=== PATIENT | female | born 1985 | race Caucasian/White ===

== ENCOUNTER 2023-05-13 11:10 | Emergency (ER) | payer MEDICARE, MEDICAID, SELFPAY ==
[2023-05-13] VITALS (7 sets, daily range): BP systolic 96–104; BP diastolic 69–71; PULSE 64–80; RESP 16–20; TEMP 36.7; O2SAT 98–100; BMI 23.3
--- NOTE | 2023-05-13 12:18 | CRLHL7_ITS ---
For Patients: As a result of the Century Cures Act, medical imaging exams and procedure reports are released immediately into your electronic medical record. You may view this report before your referring provider. If you have questions, please contact your health care provider. INDICATION: COUGH TECHNIQUE: Chest 2 views. COMPARISON: June 22, 2013 FINDINGS: Cardiovascular and mediastinum: Heart size and vasculature are normal in caliber and appearance. Lungs and pleural spaces: Lungs are clear. No sign of infiltrate. No sign of pleural effusion. No pneumothorax. Bones and soft tissues: No significant findings. Spinal leads including visualized. IMPRESSION: No evidence of acute cardiopulmonary process. Dictated by Filemon Smart MD @ 05/13/2023 1:48:38 PM (Electronically Signed)
--- NOTE | 2023-05-13 12:21 | ED.GENADULT ---
HPI - General Adult General Chief complaint: Cough Stated complaint: low bp, cough Time Seen by Provider: 05/13/23 11:32 History of Present Illness HPI narrative: This 37-year-old female comes in reporting upper respiratory symptoms for the past week or more. She had a sore throat initially but this has resolved. She has persistent coughing and generalized malaise. She does not report any fevers. She has been using [id number] medicines without much relief. Related Data Home Medications Medication Instructions Recorded Confirmed albuterol sulfate 90 mcg/actuation 2 inh inhalation PRN 03/20/22 02/05/23 aerosol inhaler cyclobenzaprine 10 mg tablet 10 mg PO ONCE PRN 03/20/22 05/13/23 lorazepam 1 mg tablet 0.5 - 1 mg PO QDAY PRN 03/20/22 05/13/23 trazodone 50 mg tablet 100 mg PO .Bedtime 03/20/22 05/13/23 Previous Rx's Medication Instructions Recorded aripiprazole 2 mg tablet (Abilify) 2.5 mg (1.25 x 2 mg) PO QDAY 01/22/23 Anxiety #90 tabs escitalopram oxalate 20 mg tablet 20 mg PO DAILY Anxiety #90 tabs 01/22/23 tramadol 50 mg tablet 50 mg PO TID PRN pain #90 tabs 04/09/23 dextroamphetamine sulfate 10 mg 10 mg PO BID ADHD #60 tabs 04/22/23 tablet acetaminophen 300 mg-codeine 30 mg 1 tab PO Q6H PRN pain #15 tabs 05/13/23 tablet methylprednisolone 4 mg tablets in See Rx Instructions PO .COMPLEX 05/13/23 a dose pack (Medrol (Chepe)) #21 ea Allergies Allergy/AdvReac Type Severity Reaction Status Date / Time Penicillins Allergy Mild Hives/rash Verified 02/05/23 14:16 Review of Systems Status of ROS: Reports: 10 or more systems reviewed and unremarkable except as noted in History and below Narrative: Constitutional: No fevers, no weight gain or loss. Eyes: No discharge. No vision changes. HENT: No sore throat, no ear pain. Nasal congestion. Cardiovascular: No chest pain, no palpitations. Respiratory: No shortness of breath, no wheezes. Frequent nonproductive cough. Gastrointestinal: No abdominal pain, no vomiting, no diarrhea. Genitourinary: No dysuria, no hematuria. Musculoskeletal: Normal range of motion. Skin: No rashes, no pruritis. Neurological: No dizziness, weakness, sensory change, speech change. Endo/Heme/Allergies: No bruising or bleeding. No polydipsia. Pysch: no suicidality, no anxiety, no insomnia. All other systems reviewed and are negative. [facility] Medical History (Updated 05/13/23 @ 12:58 by Michele Ruiz MD) Dysuria ?R30.0 - Dysuria (ICD-10) Suicidal ideation ?R45.851 - Suicidal ideations (ICD-10) History of seizure disorder ?Z86.69 - Personal history of other diseases of the nervous system and sense organs (ICD-10) History of migraine ?Z86.69 - Personal history of other diseases of the nervous system and sense organs (ICD-10) Depression with suicidal ideation ?F32.A - Depression, unspecified (ICD-10) ?R45.851 - Suicidal ideations (ICD-10) Surgical History (Updated 03/05/22 @ 12:42 by Dioni Dior) Status post surgical removal of both fallopian tubes (2014) ?Z90.79 - Acquired absence of other genital organ(s) (ICD-10) Status post laparoscopic hysterectomy (2014) ?Z90.710 - Acquired absence of both cervix and uterus (ICD-10) History of section (03/01/10) ?Z98.891 - History of uterine scar from previous surgery (ICD-10) Family History (Updated 03/05/22 @ 12:43 by Dioni Dior) Other Ankylosing spondylitis Social History (Updated 03/05/22 @ 12:44 by Dioni Dior) Narrative: Nicotine dependence Does not have regular exercise regimen Medical cannabis use Single, unemployed, 1 child Social drinker, 2 drinks/week Smoking Status: Current every day smoker What tobacco products do you use: cigarettes Smoking packs per day: 0.75 Smoking cigarettes per day: 15.0 Do you use any of these nicotine containing products: None Second hand tobacco smoke exposure: No How often do you have a drink containing alcohol: monthly or less AUDIT-C Alcohol total score: 1 Non-prescribed substance use: marijuana (any form) Little interest or pleasure in doing things: several days Feeling down, depressed, or hopeless: more than half the days service: No Exam Narrative: Exam Narrative: Constitutional: Well-developed, well-nourished, no acute distress. HEENT: Normocephalic, atraumatic. Neck: Normal range of motion. Nontender. Supple. Heart: Regular. No murmurs. Normal rate. Intact distal pulses. Lungs: Clear to auscultation. No chest discomfort. No wheezes, rhonchi, or rales. Abdomen: Normal bowel sounds. Nontender. No rebound tenderness. Genitalia: Deferred. Back: No midline tenderness. Normal range of motion. Extremities: Normal range of motion. No injury. Skin: Intact. No rash. Warm. No erythema or pallor. Neurologic: No altered sensation. No weakness. Alert and oriented. Psychiatric: No suicidality. No anxiety or depression. No insomnia. Nursing notes and vitals signs are reviewed. Const: Vital Signs, click to edit/add: Vital Signs - 24 hr 05/13/23 11:21 05/13/23 12:06 05/13/23 12:07 Temperature 98.0 F Pulse Rate 79 74 Pulse Rate [Pulse Oximeter] 80 Respiratory Rate 20 16 Blood Pressure 96/69 Blood Pressure [Ri ght Upper Arm] 102/70 Pulse Oximetry 99 100 98 Oxygen Delivery Me thod Room Air 05/13/23 12:15 05/13/23 12:34 05/13/23 12:35 Temperature Pulse Rate 76 69 69 Pulse Rate [Pulse Oximeter] Respiratory Rate 16 Blood Pressure 104/71 Blood Pressure [Ri ght Upper Arm] Pulse Oximetry 99 100 99 Oxygen Delivery Me thod 05/13/23 12:45 Temperature Pulse Rate 64 Pulse Rate [Pulse Oximeter] Respiratory Rate Blood Pressure Blood Pressure [Ri ght Upper Arm] Pulse Oximetry 100 Oxygen Delivery Me thod Course Vital Signs Vital signs: Initial Vital Signs Temperature 98.0 F 05/13/23 11:21 Temperature Source Temporal Artery Scan 05/13/23 11:21 Pulse Rate 80 05/13/23 11:21 Pulse Rhythm Regular 05/13/23 11:21 Respiratory Rate 20 05/13/23 11:21 Blood Pressure 102/70 05/13/23 11:21 Blood Pressure Mean 80 05/13/23 11:21 Blood Pressure Position Sitting 05/13/23 11:21 Pulse Oximetry 99 10/10/23 11:21 Oxygen Delivery Method Room Air 05/13/23 11:21 Vital Signs Temperature 98.0 F 05/13/23 11:21 Pulse Rate 80 05/13/23 11:21 Respiratory Rate 20 05/13/23 11:21 Blood Pressure 102/70 05/13/23 11:21 Pulse Oximetry 99 05/13/23 11:21 Oxygen Delivery Method Room Air 05/13/23 11:21 Temperature 98.0 F 05/13/23 11:21 Pulse Rate 64 05/13/23 12:45 Respiratory Rate 16 05/13/23 12:34 Blood Pressure 104/71 05/13/23 12:34 Pulse Oximetry 100 05/13/23 12:45 Oxygen Delivery Method Room Air 05/13/23 11:21 Medical Decision Making MDM Narrative Medical decision making narrative: This patient comes in with symptoms of upper respiratory infection as described above. Chest x-ray by my review with radiology report pending shows no evidence of acute pulmonary disease. Nasal swab is negative for COVID, influenza, and RSV. This patient's symptoms are likely due to a viral upper respiratory infection. She has normal vital signs. She did receive a prescription for Medrol Dosepak and some tablets of Tylenol 3. Lab Data Labs: Lab Results 05/13/23 Range/Units 11:33 SARS-CoV-2 (PCR) Negative SARS-CoV-2 (Negative) Influenza Type A (PCR) Negative PCR FLU A (Negative) Influenza Type B (PCR) Negative PCR FLU B (Negative) RSV (PCR) Negative PCR RSV (Negative) Discharge Plan Discharge Clinical Impression: Acute upper respiratory infection Patient Disposition: Home, Self-Care Condition: Unchanged Additional Instructions: Take medication as needed and indicated. Follow up with MD or return if worsening symptoms happen. Prescriptions: New acetaminophen-codeine 300-30 mg tablet 1 tab PO Q6H PRN (Reason: pain) Qty: 15 0RF methylprednisolone [Medrol (Chepe)] 4 mg tablets,dose pack See Rx Instructions .ROUTE .COMPLEX Qty: 21 0RF Rx Instructions: orally per package directions No Action trazodone 50 mg tablet 100 mg PO .Bedtime albuterol sulfate 90 mcg/actuation HFA aerosol inhaler 2 inh inhalation PRN cyclobenzaprine 10 mg tablet 10 mg PO ONCE PRN lorazepam 1 mg tablet 0.5 - 1 mg PO QDAY PRN Rx Instructions: Take for severe anxiety. Do not take with hydrocodone. aripiprazole [Abilify] 2 mg tablet 2.5 mg PO QDAY Qty: 90 3RF escitalopram oxalate 20 mg tablet 20 mg PO DAILY Qty: 90 3RF tramadol 50 mg tablet 50 mg PO TID PRN (Reason: pain) Qty: 90 2RF dextroamphetamine sulfate 10 mg tablet 10 mg PO BID Qty: 60 0RF Rx Instructions: administer doses at least 4-6 hours apart Follow Up/Referrals: Alvaro Clements MD [Primary Care Provider] - Stand Alone Forms: [employer] Info Instructions
[2023-05-13 12:37] LABS: PCR FLU A Negative PCR FLU A (Negative); PCR FLU B Negative PCR FLU B (Negative); PCR RSV Negative PCR RSV (Negative)
[2023-05-13 12:45] LABS: SARS PCR* Negative SARS-CoV-2 (Negative)
== END 2023-05-13 13:10 | disposition home or self-care (01) ==
PROVIDERS: Emergency Provider Emergency Medicine Emergency Medical Services; PCP Family Medicine
DX: J06.9 Acute upper respiratory infection, unspecified (principal)
CPT/HCPCS: 71046; 87631; 99284

== ENCOUNTER 2023-07-22 10:17 | Outpatient (CLI) | payer MEDICARE, MEDICAID, SELFPAY ==
--- OUTSIDE RECORDS SUMMARY | 2023-07-22 10:22 | XMS_ITS | Continuity of Care Document ---
Author Name Unknown Organization [facility] Address [address] [facility] [place] [address] Phone Care Team Providers Care Director Of Strategic Marketing Name Role Phone Lisandro YUE [place] Unavailable Unavailable Allergies, Adverse Reactions, Alerts Substance Reaction Status Criticality PENICILLIN Hives/Skin Rash Active No Informati on Medications Medication Instructions Dosage Effective Dates (start - stop) Status Comments Medrol (Chepe) 4 mg tablets in a dose pack take by oral route as directed per package instructions 0.00 - Active cyclobenzaprine 10 mg tablet Take 10 mg by mouth every 8 hours as needed. - Active Fioricet 50 mg-300 mg-40 mg capsule take 1 - 2 capsule by oral route every 4 hours as needed not to exceed 6 capsules per 24hrs 1.00-2.00 capsule - Active Adderall 5 mg tablet take 1 tablet by oral route 2 times every day before breakfast and at noon 5 MG - Active trazodone 50 mg tablet take 1 - 2 tablet by ORAL route every bedtime after meals 50 MG - Active Lexapro 20 mg tablet take 1 tablet by oral route every day 20 MG - Active methotrexate sodium 2.5 mg tablet take 4 tablet by oral route every week 10 MG - Active lorazepam 0.5 mg tablet take 1 tablet by oral route every day as needed as needed 0.5 MG - Active Humira 40 mg/0.8 mL subcutaneous syringe kit inject 0.8 milliliter by subcutaneous route every 2 weeks in the abdomen or thigh (rotate sites) 40 MG - Active lamotrigine 200 mg tablet take 1 tablet by oral route every 3 days 200 MG - Active ketorolac 15 mg/mL injection cartridge inject 2 milliliter by intramuscular route every 6 hours as needed for up to 5 days total use - Active hydroxyzine HCl 50 mg tablet take 1 tablet by oral route 2 times every day 50 MG - Active lidocaine 3 % topical cream - Active Proair Digihaler 90 mcg/actuation aerosol powder breath act, sensor inhale 2 puff by inhalation route every 4 - 6 hours as needed 180 MCG - Active medical cannabis ORAL - Active Lyrica 25 mg capsule take 1 capsule by ORAL route 2 times every day 25 MG - No Longer Active baclofen 5 mg tablet take 1 tablet by oral route 3 times every day as needed 5 MG - No Longer Active Procedures Procedure Date OFFICE/OUTPATIENT VISIT, EST OFFICE VISIT, EST TELEMEDICINE Foll-up eval q3mo opiod tx Drug Urine Toxology With Chromatography Drug test def 22+ classes Foll-up eval q3mo opiod tx OFFICE/OUTPATIENT VISIT, EST Foll-up eval q3mo opiod tx OFFICE VISIT, EST TELEMEDICINE 22 Foll-up eval q3mo opiod tx OFFICE/OUTPATIENT VISIT, EST Injection Sacroiliac Left Foll-up eval q3mo opiod tx OFFICE/OUTPATIENT VISIT, EST ROUTINE BLOOD DRAW Drug Urine Toxology With Chromatography Drug test def 22+ classes Foll-up eval q3mo opiod tx OFFICE/OUTPATIENT VISIT, EST Foll-up eval q3mo opiod tx OFFICE VISIT, EST TELEMEDICINE 21 Foll-up eval q3mo opiod tx OFFICE VISIT, EST TELEMEDICINE Foll-up eval q3mo opiod tx OFFICE VISIT, EST TELEMEDICINE Foll-up eval q3mo opiod tx OFFICE/OUTPATIENT VISIT, EST PT-FOCUSED HLTH RISK ASSMT Foll-up eval q3mo opiod tx OFFICE/OUTPATIENT VISIT, EST Foll-up eval q3mo opiod tx OFFICE/OUTPATIENT VISIT, EST ROUTINE BLOOD DRAW Foll-up eval q3mo opiod tx OFFICE/OUTPATIENT VISIT, EST X-RAY SPINE CERVICAL 3 VIEWS OR LESS Sep [facility] Post Op Satellite Foll-up eval q3mo opiod tx OFFICE VISIT, EST TELEMEDICINE [facility] Post Op Satellite No Charge For Visit Per Prov IMPLANT NEUROELECTRODES ASC IMPLANT NEUROELECTRODES ASC INSRT/REDO SPINE N GENERATOR Foll-up eval q3mo opiod tx OFFICE VISIT, EST TELEMEDICINE Foll-up eval q3mo opiod tx OFFICE VISIT, EST TELEMEDICINE Foll-up eval q3mo opiod tx OFFICE VISIT, EST TELEMEDICINE Foll-up eval q3mo opiod tx OFFICE/OUTPATIENT VISIT, EST [facility]CS Lead Pull Satellite No Charge For Visit Per Prov ORTHOTIC MGMT AND TRAINING Initial Encou nter No Charge For Visit Per Prov [facility] Mid Trial Satellite IMPLANT NEUROELECTRODES ASC IMPLANT NEUROELECTRODES ASC Implt neurostim elctr each FLUOROGUIDE FOR SPINE INJECTION May-- 020 Foll-up eval q3mo opiod tx OFFICE/OUTPATIENT VISIT, EST Foll-up eval q3mo opiod tx OFFICE/OUTPATIENT VISIT, EST PT EVAL MOD COMPLEX 30 MIN Foll-up eval q3mo opiod tx OFFICE/OUTPATIENT VISIT, EST Psych Dx Eval Foll-up eval q3mo opiod tx OFFICE/OUTPATIENT VISIT, EST SCS Trial Procedure Ordered Foll-up eval q3mo opiod tx OFFICE/OUTPATIENT VISIT, EST Drug test def 22+ classes Drug Urine Toxology With Chromatography Alcohol/drug screening OFFICE/OUTPATIENT VISIT, NEW Drug test def 22+ classes Advance Directives Directive Yes / No Effective Date File Name No Information Encounters Encounter Description Practice Location Reason(s) For Visit Diagnoses Date Provider Providers Copied on Encounter [facility], [address] [place] [address], [id number] , [place] tel: [phone] [facility] [place] No Information 2 Amandaadrianna [place]. [address], [place], [id number] , [place]. tel:[phone] OFFICE/OUTPAT IENT VISIT, [facility], [address] [place] [address], [id number] , [place] tel: [phone] [facility] low back pain (chief complaint) Nicotine dependenceDepre ssionChronic pain syndromePain in right hipPain in left hipSacroiliitis , not elsewhere classifiedSpond ylosis w/o myelopathy or radiculopathy, cervical regionRadiculop athy, lumbar regionLong term (current) use of opiate analgesic 2 Lisandro Osborne. [address], [place], [id number] , [place]. tel:[phone] Referring Provider: Lucas Buitrago, [address] [place], [address]. tel:[phone] OFFICE VISIT, EST TELEMEDICINE [facility], [address] [place] [address], [id number] , [place] tel:[phone] [facility] [place] low back pain (chief complaint) Nicotine dependenceDepre ssionChronic pain syndromePain in right hipPain in left hipSacroiliitis , not elsewhere classifiedSpond ylosis w/o myelopathy or radiculopathy, cervical regionRadiculop athy, lumbar regionLong term (current) use of opiate analgesic Oct-3 0- 2 Lisandro Osborne. [address], [place], [place], [id number] , [place]. tel:[phone] Referring Provider: Lucas Buitrago, [address] [place] [address], [address]. [phone] [facility], [address] [place] [address], [id number] , [place] tel: [phone] [facility] [place] No Information Oct-0 2 Marilyn Parker. [address] [place] [address], [id number] , [place]. tel:[phone] OFFICE/OUTPAT IENT VISIT, [facility], [address] [place] [address], [id number] , [place] tel:[phone] [facility] Back Pain (chief complaint) Ankylosing spondylitis in spineChronic pain syndromePain in left hipLong term (current) use of opiate analgesicSpondy losis w/o myelopathy or radiculopathy, cervical regionDepressio nRadiculopathy, lumbar regionNicotine dependenceSacro iliitis, not elsewhere classifiedPain in right hipEncounter for therapeutic drug level monitoring Oct-0 2 Marilyn Parker. [address] [place] [address], [id number] , [place]. tel:[phone] Referring Provider: Lucas Buitrago, [address] [place] [address], [address]. [phone] OFFICE VISIT, EST TELEMEDICINE [facility], [address] [place] [address], [id number] , [place] tel: [phone] [facility] Back Pain (chief complaint) Sacroiliitis, not elsewhere classifiedPain in right hipChronic pain syndromePain in left hipAnkylosing spondylitis in spineLong term (current) use of opiate analgesicDepres sionSpondylosis w/o myelopathy or radiculopathy, cervical regionRadiculop athy, lumbar regionNicotine dependence 2 Lisandro Osborne. [address] [facility] [address], [place], [place], [id number] , [place]. tel: [phone] Referring Provider: Alvaro Clements, [address], [address]. tel:[phone] OFFICE/OUTPAT IENT VISIT, [facility], [address] [place] [address], [id number] , [place] tel: [phone] [facility] Back Pain (chief complaint) Sacroiliitis, not elsewhere classifiedPain in right hipChronic pain syndromePain in left hipAnkylosing spondylitis in spineLong term (current) use of opiate analgesicDepres sionSpondylosis w/o myelopathy or radiculopathy, cervical regionRadiculop athy, lumbar regionNicotine dependence 1 Lisandro Osborne. [address] [facility] [address], [place], [place], [id number] , [place]. tel: [phone] Referring Provider: Lucas Buitrago, [address] [place] [address], [address]. tel:[phone] [facility], [address] [place] [address], [id number] , [place] tel: [phone] [facility] Sacroiliitis, not elsewhere classified 1 Crow Kiran. [facility], [address] [facility] [address], [place], [address], [place]. tel: [phone] Referring Provider: Lucas Buitrago, [address] [place] [address], [address]. tel:[phone] OFFICE/OUTPAT IENT VISIT, EST [facility], [address] [place] [address], [id number] , [place] tel: [phone] [facility] Back Pain (chief complaint) Pain in right hipChronic pain syndromePain in left hipAnkylosing spondylitis in spineLong term (current) use of opiate analgesicDepres sionNicotine dependenceSpond ylosis w/o myelopathy or radiculopathy, cervical regionSacroilii tis, not elsewhere classified 1 Nyongesa [place]. [address] [facility] [address], [place], [place], [id number] , [place]. tel: [phone] Referring Provider: Lucas Buitrago, [address] [place] [address], [address]. tel:[phone] [facility], [address] [place] [address], [id number] , [place] tel: [phone] [facility] Back Pain (chief complaint) Pain in right hipChronic pain syndromePain in left hipAnkylosing spondylitis in spineLong term (current) use of opiate analgesicDepres sionNicotine dependenceSpond ylosis w/o myelopathy or radiculopathy, cervical region 1 Nyongesa [place]. [address] [facility] [address], [place], [place], [id number] , [place]. tel: [phone] Referring Provider: Lucas Buitrago, [address] [place] [address], [address]. tel: [phone] [facility], [address] [place] [address], [id number] , [place] tel: [phone] [facility] No Information 1 Nyongesa [place]. [address] [facility] [address], [place], [place], [id number] , [place]. tel: [phone] OFFICE/OUTPAT IENT VISIT, EST [facility], [address] [place] [address], [id number] , [place] tel: [phone] [facility] Back Pain (chief complaint) Ankylosing spondylitis in spineLong term (current) use of opiate analgesicDepres sionNicotine dependenceSpond ylosis w/o myelopathy or radiculopathy, cervical regionEncounter for therapeutic drug level monitoringPain in right hipChronic pain syndromePain in left hip 8-202 1 Nyongesa [place]. [address], [place], [id number] , [place]. [phone] Referring Provider: Lucas Buitrago, [address] [place] [address], [address]. [phone] OFFICE VISIT, EST TELEMEDICINE [facility], [address] [place] [address], [id number] , [place] [phone] [facility] Back Pain (chief complaint) Ankylosing spondylitis in spineLong term (current) use of opiate analgesicDepres sionNicotine dependencePain in right hipSpondylosis w/o myelopathy or radiculopathy, cervical regionChronic pain syndromePain in left hip Sep-3 0-202 1 Nyongesa [place]. [address] [facility] [address] [facility] [address], [place], [id number] , [place]. [phone] Referring Provider: Lucas Buitrago, [address] [place] [address], [address]. [phone] OFFICE VISIT, EST TELEMEDICINE [facility], [address] [place] [address], [id number] , [place] tel:[phone] [facility] Back Pain (chief complaint) Ankylosing spondylitis in spineLong term (current) use of opiate analgesicDepres sionNicotine dependencePain in right hipSpondylosis w/o myelopathy or radiculopathy, cervical regionChronic pain syndrome Sep-0 2-202 1 Nyongesa [place]. [address], [place], [id number] , [place]. [phone] Referring Provider: Lucas Buitrago, [address] [place] [address], [address]. [phone] OFFICE VISIT, EST TELEMEDICINE [facility], [address] [place] [address], [id number] , [place] [phone] [facility] Back Pain (chief complaint) Ankylosing spondylitis in spineLong term (current) use of opiate analgesicDepres sionNicotine dependencePain in right hipSpondylosis w/o myelopathy or radiculopathy, cervical regionChronic pain syndrome 1 Lisandro Osborne. [address] [facility] [address], [place], [place], [id number] , [place]. [phone] Referring Provider: Lucas Buitrago, [address] [place] [address], [address]. [phone] OFFICE/OUTPAT IENT VISIT, [facility], [address] [place] [address], [id number] , [place] [phone] [facility] Back Pain (chief complaint) Ankylosing spondylitis in spineLong term (current) use of opiate analgesicDepres sionNicotine dependencePain in right hipSpondylosis w/o myelopathy or radiculopathy, cervical regionChronic pain syndromeEncount er for screening for other disorder 1 Lisandro Osborne. [address] [facility] [address], [place], [place], [id number] , [place]. [phone] Referring Provider: Lucas Buitrago, [address] [place] [address], [address]. [phone] OFFICE/OUTPAT IENT VISIT, [facility], [address] [place] [address], [id number] , [place] [phone] [facility] Back Pain (chief complaint) Ankylosing spondylitis in spineLong term (current) use of opiate analgesicDepres sionNicotine dependencePain in right hipSpondylosis w/o myelopathy or radiculopathy, cervical regionChronic pain syndrome 1 Lisandro Osborne. [address] [address], [place], [place], [id number] , [place]. [phone] Referring Provider: Lucas Buitrago, [address] [place] [address], [address]. tel:[phone] OFFICE/OUTPAT IENT VISIT, EST [facility], [address] [place] [address], [id number] , [place] tel:[phone] [facility] Back Pain (chief complaint) Ankylosing spondylitis in spineLong term (current) use of opiate analgesicDepres sionNicotine dependencePain in right hipSpondylosis w/o myelopathy or radiculopathy, cervical regionChronic pain syndrome Nov-2 1 Sid [place]. [address] [address], [place], [place], [id number] , [place]. tel:[phone] Referring Provider: Lucas Buitrago, [address] [place] [address], [address]. [phone] [facility], [address] [place] [address], [id number] , [place] tel:[phone] [facility] Ankylosing spondylitis in spine 1 Sid [place]. [address] [address], [place], [place], [id number] , [place]. [phone] Referring Provider: Lucas Buitrago, [address] [place] [address], [address]. [phone] [facility], [address] [place] [address], [id number] , [place] [phone] [facility] Encounter for therapeutic drug level monitoringLong term (current) use of opiate analgesic Oct- 1 Nyongesa [place]. [address] [address], [place], [place], [id number] , [place]. [phone] OFFICE/OUTPAT IENT VISIT, EST [facility], [address] [place] [address], [id number] , [place] tel: [phone] [facility] [place] Back Pain (chief complaint) skilled nursing (current) use of opiate analgesicAnkylo sing spondylitis in spineDepression Nicotine dependencePain in right hipSpondylosis w/o myelopathy or radiculopathy, cervical regionChronic pain syndromeEncount er for therapeutic drug level monitoring 1 Sid [place]. [address] [facility] [address] [facility] [address], [place], [id number] , [place]. tel: [phone] Referring Provider: Lucas Buitrago, [address] [place] [address], [address]. tel:[phone] [facility], [address] [place] [address], [id number] , [place] tel: [phone] [facility] [place] No Information 1 Maria Magno. [facility], [address] [facility] [address], [place], [address], [place]. tel: [phone] Referring Provider: Lucas Buitrago, [address] [place] [address], [address]. tel:[phone] OFFICE VISIT, EST TELEMEDICINE [facility], [address] [place] [address], [id number] , [place] tel: [phone] [facility] Back Pain (chief complaint) Ankylosing spondylitis in spineDepression Nicotine dependencePain in right hipSpondylosis w/o myelopathy or radiculopathy, cervical regionLong term (current) use of opiate analgesicChroni c pain syndrome b-0 1 Lisandro Osborne. [address] [facility] [address] [facility] [address], [place], [id number] , [place]. tel: [phone] [facility], [address] [place] [address], [id number] , [place] tel: [phone] [facility] [place] Spondylosis w/o myelopathy or radiculopathy, cervical region Sep-0 1 Lisandro Osborne. [address] [facility] [address] [facility] [address], [place], [id number] , [place]. tel:[phone] Referring Provider: Lucas Buitrago, [address] [place] [address], [address]. tel:[phone] [facility], [address] [place] [address], [id number] , [place] [phone] [facility] Spondylosis w/o myelopathy or radiculopathy, cervical region 1 Evan Reynolds. [address] [place] [address], [id number] , [place]. [phone] Referring Provider: Lucas Buitrago, [address] [place] [address], [address]. tel:[phone] OFFICE VISIT, EST TELEMEDICINE [facility], [address] [place] [address], [id number] , [place] [phone] [facility] Back Pain (chief complaint) Ankylosing spondylitis in spineDepression Nicotine dependencePain in right hipSpondylosis w/o myelopathy or radiculopathy, cervical regionLong term (current) use of opiate analgesicChroni c pain syndrome 1 Nyongesa [place]. [address] [facility] [address], [place], [place], [id number] , [place]. [phone] Referring Provider: Lucas Buitrago, [address] [place] [address], [address]. [phone] OFFICE VISIT, EST TELEMEDICINE [facility], [address] [place] [address], [id number] , [place] tel:[phone] [facility] Back Pain (chief complaint) Ankylosing spondylitis in spineDepression Nicotine dependencePain in right hipSpondylosis w/o myelopathy or radiculopathy, cervical regionLong term (current) use of opiate analgesicChroni c pain syndrome 0 Nyongesa [place]. [address], [place], [place], [id number] , [place]. [phone] Referring Provider: Lucas Buitrago, [address] [place] [address], [address]. [phone] OFFICE VISIT, EST TELEMEDICINE [facility], [address] [place] [address], [id number] , [place] tel:[phone] [facility] Back Pain (chief complaint) Ankylosing spondylitis in spineDepression Nicotine dependencePain in right hipSpondylosis w/o myelopathy or radiculopathy, cervical regionLong term (current) use of opiate analgesicChroni c pain syndrome 0 Nyongesa India. [id number] [place] [address] [address] [facility] [address], [place], [place], [id number] , [place]. tel:[phone] Referring Provider: Lucas Buitrago, [address] [place] [address], [address]. [phone] OFFICE/OUTPAT IENT VISIT, [facility], [address] [place] [address], [id number] , [place] tel:[phone] [facility] Back Pain (chief complaint) Ankylosing spondylitis in spineCervicalgi aDepressionNico glenda dependencePain in right hipSpondylosis w/o myelopathy or radiculopathy, cervical regionLong term (current) use of opiate analgesicChroni c pain syndrome 0 Nyongesa India. [id number] [place] [address] [address] [facility] [address], [place], [place], [id number] , [place]. tel:[phone] Referring Provider: Lucas Buitrago, [address] [place] [address], [address]. tel:[phone] [facility], [address] [place] [address], [id number] , [place] [phone] [facility] Spondylosis without myelopathy or radiculopathy, cervical region 0 Nyongesa India. [address] [place] [address] [address], [place], [place], [id number] , [place]. tel:[phone] Referring Provider: Lucas Buitrago, [address] [place] [address], [address]. tel:[phone] [facility], [address] [place] [address], [id number] , [place] tel: [phone] [facility] [place] Spondylosis without myelopathy or radiculopathy, cervical region Oct- 0 Nyongesa [place]. [address] [facility] [address], [place], [place], [id number] , [place]. tel: [phone] Referring Provider: Lucas Buitrago, [address] [place] [address], [address]. tel:[phone] [facility], [address] [place] [address], [id number] , [place] tel: [phone] [facility] Spondylosis without myelopathy or radiculopathy, cervical region May- 0 Evan Reynolds. [address] [place] [address], [id number] , [place]. tel: [phone] Referring Provider: Lucas Buitrago, [address] [place] [address], [address]. tel:[phone] OFFICE/OUTPAT IENT VISIT, [facility], [address] [place] [address], [id number] , [place] tel: [phone] [facility] Back Pain (chief complaint) Ankylosing spondylitis in spineCervicalgi aDepressionNico glenda dependencePain in right hipSpondylosis w/o myelopathy or radiculopathy, cervical regionLong term (current) use of opiate analgesicChroni c pain syndrome Sep-2 0 Nyongesa [place]. [address] [facility] [address] [facility] [address], [place], [place], [id number] , [place]. tel: [phone] Referring Provider: Lucas Buitrago, [address] [place] [address], [address]. tel:[phone] OFFICE/OUTPAT IENT VISIT, [facility], [address] [place] [address], [id number] , [place] tel: [phone] [facility] Back Pain (chief complaint) Ankylosing spondylitis in spineCervicalgi aDepressionNico glenda dependencePain in right hipSpondylosis w/o myelopathy or radiculopathy, cervical regionLong term (current) use of opiate analgesicChroni c pain syndrome Sep-0 0 Lisandro Osborne. [address] [facility] [address], [place], [place], [id number] , [place]. tel:[phone] Referring Provider: Lucas Buitrago, [address] [place] [address], [address]. [phone] [facility], [address] [place] [address], [id number] , [place] [phone] [facility] cervicalgia (chief complaint) Ankylosing spondylitis in spineCervicalgi a 0 Cadence Pat. [address] [place], [place], [id number] , [place]. tel: [phone] Referring Provider: Lucas Buitrago, [address] [place] [address], [id number]. tel:[phone] OFFICE/OUTPAT IENT VISIT, EST [facility], [address] [place] [address], [id number] , [place] [phone] [facility] Back Pain (chief complaint) DepressionNicot ine dependencePain in right hipSpondylosis w/o myelopathy or radiculopathy, cervical regionLong term (current) use of opiate analgesicChroni c pain syndromeAnkylos ing spondylitis in spine 0 Lisandro Osborne. [address], [place], [place], [id number] , [place]. [phone] Referring Provider: Lucas Buitrago, [address] [place] [address], [id number]. tel:[phone] Psych Dx Eval [facility], [address] [place] [address], [id number] , [place] [phone] Telehealth Pain disorder with related psychological factorsMajor depressive disorder, recurrent, in partial remission 0 Fiorella Kong Peg. [address] [place], [place], [id number] , [place]. tel:[phone] Referring Provider: Lucas Buitrago, [address] [place] [address], [address]. tel:[phone] OFFICE/OUTPAT IENT VISIT, [facility], [address] [place] [address], [id number] , [place] tel:[phone] [facility] Back Pain (chief complaint) Chronic pain syndromeAnkylos ing spondylitis in spineDepression Nicotine dependencePain in right hipSpondylosis w/o myelopathy or radiculopathy, cervical regionLong term (current) use of opiate analgesic 0 Nyongesa [place]. [id number] [place] [address] [address], [place], [place], [id number] , [place]. tel: [phone] Referring Provider: Lucas Buitrago, [address] [place] [address], [address]. tel:[phone] [facility], [address] [place] [address], [id number] , [place] tel:[phone] [facility] Spondylosis w/o myelopathy or radiculopathy, cervical region 0 [place]. [id number] [place] [address] [address], [place], [place], [id number] , [place]. tel: [phone] OFFICE/OUTPAT IENT VISIT, [facility], [address] [place] [address], [id number] , [place] tel: [phone] [facility] Back Pain (chief complaint) Chronic pain syndromeAnkylos ing spondylitis in spineDepression Nicotine dependencePain in right hipLong term (current) use of opiate analgesicSpondy losis w/o myelopathy or radiculopathy, cervical region 0 [place]. [address] [facility] [address], [place], [place], [id number] , [place]. tel: [phone] Referring Provider: Lucas Buitrago, [address] [place], [address]. tel:[phone] OFFICE/OUTPAT IENT VISIT, [facility], [address] [place], [place], [id number] , [place] [phone] [facility] [place] Back Pain (chief complaint) Chronic pain syndromeAnkylos ing spondylitis in spineDepression Nicotine dependencePain in right hipEncounter for therapeutic drug level monitoringCervi michelle 0 Nyadrianna Osborne. [address], [place], [place], [id number] , [place]. tel:[phone] Referring Provider: Alvaro Clements, [facility] [address] [place], [address]. tel:[phone] Family History Family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
--- OUTSIDE RECORDS SUMMARY | 2023-07-22 10:22 | XMS_ITS | Continuity of Care Document ---
Author Name Unknown Organization [facility] Address [address] [place] [address] Care Team Providers Care Vp Global Name Role Phone [facility] Unavailable Unav ailable Procedures Procedure [...] Diagnoses Date Provider Providers Copied on Encounter [facility], [address] [place], [place], [id number], [facility] No Information [facility]. [address] [place], [place], [id number], [place]. tel:[phone] Referring Provider: Gail Gordon, [address] [place], [address]. tel:[phone] [facility], [address] [place], [place], [id number], [facility] No Information [facility]. [address] [facility] [facility] [place], [place], [id number], [place]. tel:[phone] Referring Provider: Irma [address] [place], [address]. tel:[phone] Family History Family Member Type Diagnosis Age [...]
--- OUTSIDE RECORDS SUMMARY | 2023-07-22 10:22 | XMS_ITS | Continuity of Care Document ---
Author Name Unknown Organization [facility] Address [address] [place] [id number] Phone Care Team Providers Care Car Sales Consultant Name Role Phone [facility] Unavailable Unava ilable Procedures Procedure Date INJECT SACROILIAC JOINT Inj for sacroiliac jt anesth Advance Directives Directive Yes / No Effective Date File Name No Information Encounters Encounter Description Practice Location Reason(s) For Visit Diagnoses Date Provider Providers Copied on Encounter [facility], [address] [place] [address], [id number], [place] tel:[phone] [facility] No Information [facility]. [address] [place] [address], [id number], [place]. tel:[phone] Referring Provider: Kristin Dumont [address], [place], [address]. tel:[phone] Family History Family Member Type Diagnosis Age [...]
--- OUTSIDE RECORDS SUMMARY | 2023-07-22 10:22 | XMS_ITS | Continuity of Care Document ---
Author Name Unknown Organization [facility] Address [address] [place] [address] Care Team Providers Care Director Of Catering Sales Name Role Phone Charanjit Rader CRNA Unavailable Unavailable Procedures Procedure Date ANESTH, HEAD/NECK/PTRUNK ANESTH PERC IMG TX SP PROC Advance Directives Directive Yes / No Effective Date File Name No Information Encounters Encounter Description Practice Location Reason(s) For Visit Diagnoses Date Provider Providers Copied on Encounter [facility], [address] [place] [address], [id number], [facility] No Information Dior Donohue. [address] [place] [address], [id number], . tel:[phone] Referring Provider: Gail Gordon, [address] [place] [address], [id number] . tel:[phone] [facility], [address] [place] [address], [id number], [facility] No Information Ivis Luis. [address] [place] [address] Ln, [place], [place], [id number], . tel:[phone] Referring Provider: Gail Gordon, [address] [place] [address], [id number] . tel:[phone] Family History Family Member Type Diagnosis Age [...]
[2023-07-22 20:06] LABS: Chlamydia DNA Amplified* NOT DETECTED (No Detected); GC DNA Amplified* NOT DETECTED (No Detected)
== END 2023-07-22 10:18 | disposition home or self-care (01) ==
PROVIDERS: PCP Family Medicine; Visit Provider Physician Assistant
DX: Z11.3 Encounter for screening for infections with a predominantly sexual mode of transmission (principal)
CPT/HCPCS: 86592; 86803; 87340; 87491; 87591

== ENCOUNTER 2023-07-30 14:31 | Outpatient (CLI) | payer MEDICARE, MEDICAID, SELFPAY ==
--- OUTSIDE RECORDS SUMMARY | 2023-07-31 10:39 | XMS_ITS | Continuity of Care Document ---
Author Name Unknown Organization [facility] Address [address] [place] [id number] Phone Care Team Providers Care Brim Raiser Name Role Phone [facility] Unavailable Unava ilable Procedures Procedure Date INJECT SACROILIAC JOINT Inj for sacroiliac jt anesth Advance Directives Directive Yes / No Effective Date File Name No Information Encounters Encounter Description Practice Location Reason(s) For Visit Diagnoses Date Provider Providers Copied on Encounter [facility], [address] [place] [address], [id number], [place] tel:[phone] [facility] No Information [facility]. [address] [place] [address], [id number], [place]. tel:[phone] Referring Provider: Kristin Dumont [address], [place], [address]. tel:[phone] Family History Family Member Type Diagnosis Age [...]
--- OUTSIDE RECORDS SUMMARY | 2023-07-31 10:39 | XMS_ITS | Continuity of Care Document ---
Author Name Unknown Organization [facility] Address [address] [facility] [place] [address] Care Team Providers Care Stand Up Comedian Name Role Phone [facility] Unavailable Unav ailable Procedures Procedure Date [...] Diagnoses Date Provider Providers Copied on Encounter [facility], [address] [place], [place], [id number], [facility] No Information [facility]. [address] [place], [place], [id number], [place]. tel:[phone] Referring Provider: Gail Gordon, [address] [place], [address]. tel:[phone] [facility], [address], [place], [id number], [facility] No Information [facility]. [address] [facility] [place], [place], [id number], [place]. tel:[phone] Referring Provider: Irma [address] [place], [address]. tel:[phone] Family History Family Member Type Diagnosis Age [...]
--- OUTSIDE RECORDS SUMMARY | 2023-07-31 10:39 | XMS_ITS | Continuity of Care Document ---
Author Name Unknown Organization [facility] Address [address] [place] [phone] Care Team Providers Care Gas Processing Plant Operator Name Role Phone Charanjit Rader CRNA Unavailable Unavailable Procedures Procedure Date ANESTH, HEAD/NECK/PTRUNK ANESTH PERC IMG TX SP PROC Advance Directives Directive Yes / No Effective Date File Name No Information Encounters Encounter Description Practice Location Reason(s) For Visit Diagnoses Date Provider Providers Copied on Encounter [facility], [address] [place] [address], [id number], [facility] No Information Dior Donohue. [address] [place] [address], [id number], . tel:[phone] Referring Provider: Gail Gordon, [address] [place] [address], [id number] . tel:[phone] [facility], [address] [place] [address], [id number], [facility] No Information Ivis Luis. [address] [place] [address] Ln, [place], [place], [id number], . tel:[phone] Referring Provider: Gail Gordon, [address] [place] [address], [id number] . tel:[phone] Family History Family Member Type Diagnosis Age [...]
--- OUTSIDE RECORDS SUMMARY | 2023-07-31 10:40 | XMS_ITS | Continuity of Care Document ---
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 Manager Name Role Phone Lisandro YUE [place] Unavailable [...] needed as needed 0.5 MG - Active lidocaine 3 % topical cream - Active Proair Digihaler 90 mcg/actuation aerosol powder breath act, sensor inhale 2 puff by inhalation route every 4 - 6 hours as needed 180 MCG - Active medical cannabis ORAL - Active hydroxyzine HCl 50 mg tablet take 1 tablet by oral route 2 times every day 50 MG - Active ketorolac 15 mg/mL injection cartridge inject 2 milliliter by intramuscular route every 6 hours as needed for up to 5 days total use - Active lamotrigine 200 mg tablet take 1 tablet by oral route every 3 days 200 MG - Active Humira 40 mg/0.8 mL subcutaneous syringe kit inject 0.8 milliliter by subcutaneous route every 2 weeks in the abdomen or thigh (rotate sites) 40 MG - Active Lyrica 25 mg capsule take [...] Diagnoses Date Provider Providers Copied on Encounter [facility], [address] [place] [address], [id number] , [place] tel: [phone] [facility] Ruth No Information 2 Amandaadrianna India. [address] [facility] [address], [place], [id number] , [place]. tel:[phone] OFFICE/OUTPAT IENT VISIT, [facility], [address] [place] [address], [id number] , [place] tel: [phone] [facility] low back pain (chief complaint) Nicotine dependenceDepre ssionChronic pain syndromePain in right hipPain in left hipSacroiliitis , not elsewhere classifiedSpond ylosis w/o myelopathy or radiculopathy, cervical regionRadiculop athy, lumbar regionLong term (current) use of opiate analgesic 2 Lisandro Osborne. [address] [facility] [address], [place], [id number] , [place]. tel:[phone] Referring Provider: Lucas Buitrago, [address] [place], [address]. tel:[phone] OFFICE VISIT, EST TELEMEDICINE [facility], [address] [place] [address], [id number] , [place] tel:[phone] [facility] Ruth low back pain (chief complaint) Nicotine dependenceDepre ssionChronic pain syndromePain in right hipPain in left hipSacroiliitis , not elsewhere classifiedSpond ylosis w/o myelopathy or radiculopathy, cervical regionRadiculop athy, lumbar regionLong term (current) use of opiate analgesic Oct-3 0- 2 Lisandro Osborne. [address] [facility] [address], [place], [place], [id number] , [place]. tel:[phone] Referring Provider: Lucas Buitrago, [address] [place] [address], [id number]. [phone] [facility], [address] [place] [address], [id number] , [place] tel: [phone] [facility] Ruth No Information Oct-0 2 Marilyn Parker. [address] [place] [address], [id number] , [place]. tel:[phone] OFFICE/OUTPAT IENT VISIT, [facility], [address] [place] [address], [id number] , [place] tel:[phone] [facility] Back Pain (chief complaint) Ankylosing spondylitis in spineChronic pain syndromePain in left hipLong term (current) use of opiate analgesicSpondy losis w/o myelopathy or radiculopathy, cervical regionDepressio nRadiculopathy, lumbar regionNicotine dependenceSacro iliitis, not elsewhere classifiedPain in right hipEncounter for therapeutic drug level monitoring Oct-0 2 Marilyn Parker. [address] [place] [address], [id number] , [place]. tel:[phone] Referring Provider: Lucas Buitrago, [address] [place] [address], [address]. [phone] OFFICE VISIT, EST TELEMEDICINE [facility], [address] [place] [address], [id number] , [place] tel: [phone] [facility] Back Pain (chief complaint) Sacroiliitis, not elsewhere classifiedPain in right hipChronic pain syndromePain in left hipAnkylosing spondylitis in spineLong term (current) use of opiate analgesicDepres sionSpondylosis w/o myelopathy or radiculopathy, cervical regionRadiculop athy, lumbar regionNicotine dependence 2 Lisandro Osborne. [address] [facility] [address], [place], [place], [id number] , [place]. tel: [phone] Referring Provider: Alvaro Clements, [address], [address]. tel:[phone] OFFICE/OUTPAT IENT VISIT, [facility], [address] [place] [address], [id number] , [place] tel: [phone] [facility] Back Pain (chief complaint) Sacroiliitis, not elsewhere classifiedPain in right hipChronic pain syndromePain in left hipAnkylosing spondylitis in spineLong term (current) use of opiate analgesicDepres sionSpondylosis w/o myelopathy or radiculopathy, cervical regionRadiculop athy, lumbar regionNicotine dependence 1 Lisandro Osborne. [address] [facility] [address], [place], [place], [id number] , [place]. tel: [phone] Referring Provider: Lucas Buitrago, [address] [place] [address], [address]. tel:[phone] [facility], [address] [place] [address], [id number] , [place] tel: [phone] [facility] Sacroiliitis, not elsewhere classified 1 Crow Kiran. [facility], [address] [facility] [address], [place], [address], [place]. tel: [phone] Referring Provider: Lucas Buitrago, [address] [place] [address], [id number]. tel:[phone] OFFICE/OUTPAT IENT VISIT, EST [facility], [address] [place] [address], [id number] , [place] tel: [phone] [facility] Back Pain (chief complaint) Pain in right hipChronic pain syndromePain in left hipAnkylosing spondylitis in spineLong term (current) use of opiate analgesicDepres sionNicotine dependenceSpond ylosis w/o myelopathy or radiculopathy, cervical regionSacroilii tis, not elsewhere classified 1 Nyongesa India. [address] [facility] [address], [place], [place], [id number] , [place]. tel: [phone] Referring Provider: Lucas Buitrago, [address] [place] [address], [id number]. tel:[phone] [facility], [address] [place] [address], [id number] , [place] tel: [phone] [facility] Back Pain (chief complaint) Pain in right hipChronic pain syndromePain in left hipAnkylosing spondylitis in spineLong term (current) use of opiate analgesicDepres sionNicotine dependenceSpond ylosis w/o myelopathy or radiculopathy, cervical region 1 Nyongesa India. [address] [facility] [address], [place], [id number] , [place]. tel: [phone] Referring Provider: Lucas Buitrago, [address] [place] [address], [id number]. tel:[phone] [facility], [address] [place] [address], [id number] , [place] tel: [phone] [facility] No Information 1 Nyongesa India. [address] [facility] [address], [place], [id number] , [place]. tel: [phone] OFFICE/OUTPAT IENT VISIT, EST [facility], [address] [place] [address], [id number] , [place] tel: [phone] [facility] Back Pain (chief complaint) Ankylosing spondylitis in spineLong term (current) use of opiate analgesicDepres sionNicotine dependenceSpond ylosis w/o myelopathy or radiculopathy, cervical regionEncounter for therapeutic drug level monitoringPain in right hipChronic pain syndromePain in left hip 8-202 1 Nyongesa India. [address] [facility] [address], [place], [id number] , [place]. [phone] Referring Provider: Lucas Buitrago, [address] [place] [address], [id number]. [phone] OFFICE VISIT, EST TELEMEDICINE [facility], [address] [place] [address], [id number] , [place] [phone] [facility] Back Pain (chief complaint) Ankylosing spondylitis in spineLong term (current) use of opiate analgesicDepres sionNicotine dependencePain in right hipSpondylosis w/o myelopathy or radiculopathy, cervical regionChronic pain syndromePain in left hip Sep-3 0-202 1 Nyongesa India. [address] [facility] [address], [place], [id number] , [place]. [phone] Referring Provider: Lucas Buitrago, [address] [place] [address], [id number]. [phone] OFFICE VISIT, EST TELEMEDICINE [facility], [address] [place] [address], [id number] , [place] tel:[phone] [facility] Back Pain (chief complaint) Ankylosing spondylitis in spineLong term (current) use of opiate analgesicDepres sionNicotine dependencePain in right hipSpondylosis w/o myelopathy or radiculopathy, cervical regionChronic pain syndrome Sep-0 2-202 1 Nyongesa India. [address] [facility] [address], [place], [id number] , [place]. [phone] Referring Provider: Lucas Buitrago, [address] [place] [address], [address]. [phone] OFFICE VISIT, EST TELEMEDICINE [facility], [address] [place] [address], [id number] , [place] [phone] [facility] Back Pain (chief complaint) Ankylosing spondylitis in spineLong term (current) use of opiate analgesicDepres sionNicotine dependencePain in right hipSpondylosis w/o myelopathy or radiculopathy, cervical regionChronic pain syndrome 1 Lisandro Osborne. [address] [facility] [address], [place], [id number] , [place]. [phone] Referring Provider: Lucas Buitrago, [address] [place] [address], [address]. [phone] OFFICE/OUTPAT IENT VISIT, [facility], [address] [place] [address], [id number] , [place] [phone] [facility] Back Pain (chief complaint) Ankylosing spondylitis in spineLong term (current) use of opiate analgesicDepres sionNicotine dependencePain in right hipSpondylosis w/o myelopathy or radiculopathy, cervical regionChronic pain syndromeEncount er for screening for other disorder 1 Lisandro Osborne. [address] [facility] [address], [place], [place], [id number] , [place]. [phone] Referring Provider: Lucas Buitrago, [address] [place] [address], [address]. [phone] OFFICE/OUTPAT IENT VISIT, [facility], [address] [place] [address], [id number] , [place] [phone] [facility] Back Pain (chief complaint) Ankylosing spondylitis in spineLong term (current) use of opiate analgesicDepres sionNicotine dependencePain in right hipSpondylosis w/o myelopathy or radiculopathy, cervical regionChronic pain syndrome 1 Lisandro Osborne. [address] [address], [place], [place], [id number] , [place]. [phone] Referring Provider: Lucas Buitrago, [address] [place] [address], [address]. tel:[phone] OFFICE/OUTPAT IENT VISIT, EST [facility], [address] [place] [address], [id number] , [place] tel:[phone] [facility] Back Pain (chief complaint) Ankylosing spondylitis in spineLong term (current) use of opiate analgesicDepres sionNicotine dependencePain in right hipSpondylosis w/o myelopathy or radiculopathy, cervical regionChronic pain syndrome Nov-2 1 Sid India. [address] [address], [place], [place], [id number] , [place]. tel:[phone] Referring Provider: Lucas Buitrago, [address] [place] [address], [address]. [phone] [facility], [address] [place] [address], [id number] , [place] tel:[phone] [facility] Ankylosing spondylitis in spine 1 Sid India. [address] [address], [place], [place], [id number] , [place]. [phone] Referring Provider: Lucas Buitrago, [address] [place] [address], [address]. [phone] [facility], [address] [place] [address], [id number] , [place] [phone] [facility] Encounter for therapeutic drug level monitoringLong term (current) use of opiate analgesic Oct- 1 Nyongesa India. [address] [address], [place], [place], [id number] , [place]. [phone] OFFICE/OUTPAT IENT VISIT, EST [facility], [address] [place] [address], [id number] , [place] tel: [phone] [facility] Ruth Back Pain (chief complaint) [facility] (current) use of opiate analgesicAnkylo sing spondylitis in spineDepression Nicotine dependencePain in right hipSpondylosis w/o myelopathy or radiculopathy, cervical regionChronic pain syndromeEncount er for therapeutic drug level monitoring 1 Sid [place]. [address] [facility] [address], [place], [id number] , [place]. tel: [phone] Referring Provider: Lucas Buitrago, [address] [place] [address], [address]. tel:[phone] [facility], [address] [place] [address], [id number] , [place] tel: [phone] [facility] Ruth No Information 1 Maria Magno. [facility], [address] [facility] [address], [place], [address], [place]. tel: [phone] Referring Provider: Lucas Buitrago, [address] [place] [address], [address]. tel:[phone] OFFICE VISIT, EST TELEMEDICINE [facility], [address] [place] [address], [id number] , [place] tel: [phone] [facility] Back Pain (chief complaint) Ankylosing spondylitis in spineDepression Nicotine dependencePain in right hipSpondylosis w/o myelopathy or radiculopathy, cervical regionLong term (current) use of opiate analgesicChroni c pain syndrome b-0 1 Lisandro Osborne. [address] [facility] [address], [place], [id number] , [place]. tel: [phone] [facility], [address] [place] [address], [id number] , [place] tel: [phone] [facility] Ruth Spondylosis w/o myelopathy or radiculopathy, cervical region Sep-0 1 Lisandro Osborne. [address] [facility] [address], [place], [id number] , [place]. tel:[phone] Referring Provider: Lucas Buitrago, [address] [place] [address], [address]. tel:[phone] [facility], [address] [place] [address], [id number] , [place] [phone] [facility] Spondylosis w/o myelopathy or radiculopathy, cervical region 1 Evan Reynolds. [address] [place] [address], [id number] , [place]. [phone] Referring Provider: Lucas Buitrago, [address] [place] [address], [address]. tel:[phone] OFFICE VISIT, EST TELEMEDICINE [facility], [address] [place] [address], [id number] , [place] [phone] [facility] Back Pain (chief complaint) Ankylosing spondylitis in spineDepression Nicotine dependencePain in right hipSpondylosis w/o myelopathy or radiculopathy, cervical regionLong term (current) use of opiate analgesicChroni c pain syndrome 1 Nyongesa India. [address] [facility] [address], [place], [id number] , [place]. [phone] Referring Provider: Lucas Buitrago, [address] [place] [address], [address]. [phone] OFFICE VISIT, EST TELEMEDICINE [facility], [address] [place] [address], [id number] , [place] tel:[phone] [facility] (chief complaint) Ankylosing spondylitis in spineDepression Nicotine dependencePain in right hipSpondylosis w/o myelopathy or radiculopathy, cervical regionLong term (current) use of opiate analgesicChroni c pain syndrome 0 Nyongesa India. [address] [facility] [address], [place], [place], [id number] , [place]. [phone] Referring Provider: Lucas Buitrago, [address] [place] [address], [address]. [phone] OFFICE VISIT, EST TELEMEDICINE [facility], [address] [place] [address], [id number] , [place] tel:[phone] [facility] Back Pain (chief complaint) Ankylosing spondylitis in spineDepression Nicotine dependencePain in right hipSpondylosis w/o myelopathy or radiculopathy, cervical regionLong term (current) use of opiate analgesicChroni c pain syndrome 0 Nyongesa India. [address] [place] [address] [address] [facility] [address], [place], [place], [id number] , [place]. tel:[phone] Referring Provider: Lucas Buitrago, [address] [place] [address], [address]. [phone] OFFICE/OUTPAT IENT VISIT, [facility], [address] [place] [address], [id number] , [place] tel:[phone] [facility] Back Pain (chief complaint) Ankylosing spondylitis in spineCervicalgi aDepressionNico glenda dependencePain in right hipSpondylosis w/o myelopathy or radiculopathy, cervical regionLong term (current) use of opiate analgesicChroni c pain syndrome 0 Nyongesa India. [address] [place] [address] [address] [facility] [address], [place], [place], [id number] , [place]. tel:[phone] Referring Provider: Lucas Buitrago, [address] [place] [address], [address]. tel:[phone] [facility], [address] [place] [address], [id number] , [place] [phone] [facility] Spondylosis without myelopathy or radiculopathy, cervical region 0 Nyongesa India. [address] [place] [address] [address], [place], [place], [id number] , [place]. tel:[phone] Referring Provider: Lucas Buitrago, [address] [place] [address], [address]. tel:[phone] [facility], [address] [place] [address], [id number] , [place] tel: [phone] [facility] Ruth Spondylosis without myelopathy or radiculopathy, cervical region Oct- 0 Nyongesa India. [address] [facility] [address] [address], [place], [id number] , [place]. tel: [phone] Referring Provider: Lucas Buitrago, [address] [place] [address], [address]. tel:[phone] [facility], [address] [place] [address], [id number] , [place] tel: [phone] [facility] Spondylosis without myelopathy or radiculopathy, cervical region May- 0 Evan Reynolds. [address] [place] [address], [id number] , [place]. tel: [phone] Referring Provider: Lucas Buitrago, [address] [place] [address], [address]. tel:[phone] OFFICE/OUTPAT IENT VISIT, [facility], [address] [place] [address], [id number] , [place] tel: [phone] [facility] Back Pain (chief complaint) Ankylosing spondylitis in spineCervicalgi aDepressionNico glenda dependencePain in right hipSpondylosis w/o myelopathy or radiculopathy, cervical regionLong term (current) use of opiate analgesicChroni c pain syndrome Sep-2 0 Nyongesa India. [address] [facility] [address], [place], [place], [id number] , [place]. tel: [phone] Referring Provider: Lucas Buitrago, [address] [place] [address], [address]. tel:[phone] OFFICE/OUTPAT IENT VISIT, [facility], [address] [place] [address], [id number] , [place] tel: [phone] [facility] Back Pain (chief complaint) Ankylosing spondylitis in spineCervicalgi aDepressionNico glenda dependencePain in right hipSpondylosis w/o myelopathy or radiculopathy, cervical regionLong term (current) use of opiate analgesicChroni c pain syndrome Sep-0 0 Lisandro Osborne. [address] [facility] [address], [place], [id number] , [place]. tel:[phone] Referring Provider: Lucas Buitrago, [address] [place] [address], [address]. [phone] [facility], [address] [place] [address], [id number] , [place] [phone] [facility] cervicalgia (chief complaint) Ankylosing spondylitis in spineCervicalgi a 0 Cadence Pat. [address] [place], [place], [id number] , [place]. [phone] Referring Provider: Lucas Buitrago, [address] [place] [address], [address]. tel:[phone] OFFICE/OUTPAT IENT VISIT, EST [facility], [address] [place] [address], [id number] , [place] [phone] [facility] Back Pain (chief complaint) DepressionNicot ine dependencePain in right hipSpondylosis w/o myelopathy or radiculopathy, cervical regionLong term (current) use of opiate analgesicChroni c pain syndromeAnkylos ing spondylitis in spine 0 Lisandro Osborne. [address] [facility] [address], [place], [id number] , [place]. [phone] Referring Provider: Lucas Buitrago, [address] [place] [address], [address]. tel:[phone] Psych Dx Eval [facility], [address] [place] [address], [id number] , [place] [phone] [facility] Pain disorder with related psychological factorsMajor depressive disorder, recurrent, in partial remission 0 Fiorella Kong Peg. [address] [place], [place], [id number] , [place]. tel:[phone] Referring Provider: Lucas Buitrago, [address] [place] [address], [address]. tel:[phone] OFFICE/OUTPAT IENT VISIT, [facility], [address] [place] [address], [id number] , [place] tel:[phone] [facility] Back Pain (chief complaint) Chronic pain syndromeAnkylos ing spondylitis in spineDepression Nicotine dependencePain in right hipSpondylosis w/o myelopathy or radiculopathy, cervical regionLong term (current) use of opiate analgesic 0 Nyongesa India. [address] [place] [address] [address], [place], [place], [id number] , [place]. tel: [phone] Referring Provider: Lucas Buitrago, [address] [place] [address], [address]. tel:[phone] [facility], [address] [place] [address], [id number] , [place] tel:[phone] [facility] Spondylosis w/o myelopathy or radiculopathy, cervical region 0 Nyongesa India. [address] [place] [address] [address], [place], [place], [id number] , [place]. tel: [phone] OFFICE/OUTPAT IENT VISIT, [facility], [address] [place] [address], [id number] , [place] tel: [phone] [facility] Back Pain (chief complaint) Chronic pain syndromeAnkylos ing spondylitis in spineDepression Nicotine dependencePain in right hipLong term (current) use of opiate analgesicSpondy losis w/o myelopathy or radiculopathy, cervical region 0 [place]. [address] [facility] [address], [place], [place], [id number] , [place]. tel: [phone] Referring Provider: Lucas Buitrago, [address] [place], [address]. tel:[phone] OFFICE/OUTPAT IENT VISIT, [facility], [address] [place], [place], [id number] , [place] tel:[phone] [facility] Back Pain (chief complaint) Chronic pain syndromeAnkylos ing spondylitis in spineDepression Nicotine dependencePain in right hipEncounter for therapeutic drug level monitoringCervi michelle 0 Nyadrianna Osborne. [address] [facility] [address], [place], [id number] , [place]. tel:[phone] Referring Provider: Alvaro Clements, [facility] [address] [place], [address]. tel:[phone] Family History Family Member Type Diagnosis Age At Onset Mother Problem ankylosing spondylitis Payers Payer name Insurance type Covered republican ID Saloni patricio(s) [facility] [id number] Social History Type Description Quantity Date Captured Comments Alcohol Use Details Unknown Caffeine Use Details Unknown Tobacco Use Status Smoking Status No Information Sex Female Chief Complaint And Reason For Visit No Information Reason For Referral Reason For Referral No Information Plan Of Treatment Date Type Action Status Goal COUNTERSINKER Scanned. 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 Due on due Goal Unhealthy drug u se screening. Due on due Goal PHQ-9. Due on du e Goal Tobacco Use. Due on due Goal Hepatitis C scre ening. Due on due Goal Medication Recon ciliation. Due on due Goal Weight. Due on d ue Goal HPV. Due on due Goal UDT. Due on due Goal Order Annual PT. Due on due Goal Creatinine. Due on due Goal ALT (SGPT). Due on due Goal OARS. Due on due Goal AST (SGOT). Due on due Goal Height. Due on d ue Goal Review Allergy L ist. Due on due Goal Update Social Hi story. 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 Due on due Goal Medication Recon ciliation. Due on due Goal Update Social Hi story. Due on due Goal Height. Due on d ue Goal AST (SGOT). Due on due Goal Creatinine. Due on due Goal COUNTERSINKER Scanned. Due on due Goal ALT (SGPT). Due on due Goal Weight. Due on d ue Goal HPV. Due on due Goal Tobacco Use. Due on due Goal OARS. Due on due Goal UDT. Due on due Goal Unhealthy drug u se screening. Due on due Goal PHQ-9. Due on du e Goal Hepatitis C scre ening. Due on due Goal Review Allergy L ist. Due on due Goal Order Annual PT. Due on due Goal AST (SGOT). Due on due Goal OARS. 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 Due on due Goal ALT (SGPT). Due on due Goal Creatinine. Due on due Goal UDT. Due on due Goal COUNTERSINKER Scanned. Due on due Goal Unhealthy drug [...] ue Goal Creatinine. 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 Due on due Goal Update Social Hi story. Due on due Goal Weight. Due on d ue Goal Order Annual PT. Due on due Goal AST (SGOT). Due on due Goal COUNTERSINKER Scanned. Due on due Goal PHQ-9. Due on du e Goal Update Social Hi story. Due on due Goal Height. Due on d ue Goal ALT (SGPT). Due on due Goal AST (SGOT). 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 Due on due Goal OARS. Due on due Goal Creatinine. Due on due Goal UDT. Due on due Goal Order Annual PT. Due on due Goal Review Allergy L ist. Due on due Goal Weight. Due on d ue Goal COUNTERSINKER Scanned. Due on due Goal Medication Recon [...] Goal AST (SGOT). Due on due Goal COUNTERSINKER Scanned. Due on due Goal Tobacco Use. Due on due Goal Height. Due on d ue Goal Order Annual PT. Due on due Goal UDT. Due on due Goal Review Allergy L ist. 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 Due on due Goal OARS. Due on due Goal Tobacco Use. Due on due Goal Review Allergy L ist. Due on due Goal AST (SGOT). Due on due Goal Medication Recon ciliation. Due on due Goal UDT. Due on due Goal Update Social Hi story. Due on due Goal COUNTERSINKER Scanned. Due on due Goal Order Annual PT. 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 Due on due Goal ALT (SGPT). Due on due Goal Height. Due on d ue Goal Creatinine. Due on due Goal Weight. Due on d ue Goal PHQ-9. Due on du e Goal PHQ-9. Due on du e Goal Medication Recon ciliation. Due on due Goal Review Allergy L ist. Due on due Goal AST (SGOT). Due on due Goal UDT. Due on due Goal Order Annual PT. Due on due Goal Weight. Due on d ue Goal ALT (SGPT). Due on due Goal Height. Due on d ue Goal OARS. 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
== END 2023-07-30 14:32 | disposition home or self-care (01) ==
LOC: NFLDREF 07-31 10:37
PROVIDERS: PCP Family Medicine; Referring Provider Family Medicine; Visit Provider Advanced Practice Midwife
DX: R30.0 Dysuria (principal)
CPT/HCPCS: 87086

== ENCOUNTER 2023-11-25 09:21 | Outpatient (CLI) | payer MEDICARE, MEDICAID, SELFPAY ==
--- OUTSIDE RECORDS SUMMARY | 2023-11-27 11:35 | XMS_ITS | Continuity of Care Document ---
Author Name Unknown Organization [facility] Address [address] [facility] [place] [address] Phone Care Team Providers Care Technical Sme Name Role Phone Lisandro YUE [place] Unavailable [...] - Active medical cannabis ORAL - Active baclofen 5 mg tablet take 1 tablet by oral route 3 times every day as needed 5 MG - No Longer Active Lyrica 25 mg capsule take 1 capsule by ORAL route 2 times every day 25 MG - No Longer Active Procedures Procedure [...] Date Provider Providers Copied on Encounter [facility], [address] [place] [address], [id number] , [place] tel: [phone] [facility] [place] No Information 2 Amandaadrianna [place]. [address] [facility] [address], [place], [id number] , [place]. tel:[phone] OFFICE/OUTPAT IENT VISIT, [facility], [address] [place] [address], [id number] , [place] tel: [phone] [facility] low back pain (chief complaint) Nicotine dependenceDepre ssionChronic pain syndromePain in right hipPain in left hipSacroiliitis , not elsewhere classifiedSpond ylosis w/o myelopathy or radiculopathy, cervical regionRadiculop athy, lumbar regionLong term (current) use of opiate analgesic 2 Lisandro Osborne. [address] [facility] [address], [place], [id number] , [place]. tel:[phone] Referring Provider: Lucas Buitrago, [address] [place], [address]. tel:[phone] OFFICE VISIT, EST TELEMEDICINE [facility], [address] [place] [address], [id number] , [place] tel:[phone] [facility] [place] low back pain (chief complaint) Nicotine dependenceDepre ssionChronic pain syndromePain in right hipPain in left hipSacroiliitis , not elsewhere classifiedSpond ylosis w/o myelopathy or radiculopathy, cervical regionRadiculop athy, lumbar regionLong term (current) use of opiate analgesic Oct-3 0- 2 Lisandro Osborne. [address] [facility] [facility] [address], [place], [place], [id number] , [place]. tel:[phone] Referring Provider: Lucas Buitrago, [address] [place] [address], [address]. [phone] [facility], [address] [place] [address], [id number] , [place] tel: [phone] [facility] [place] No Information Oct-0 2 Marilyn Parker. [address] [place] [address], [id number] , [place]. tel:[phone] OFFICE/OUTPAT IENT VISIT, [facility], [address] [place] [address], [id number] , [place] tel:[phone] [facility] Back Pain (chief complaint) Ankylosing spondylitis in spineChronic pain syndromePain in left hipLong term (current) use of opiate analgesicSpondy losis w/o myelopathy or radiculopathy, cervical regionDepressio nRadiculopathy, lumbar regionNicotine dependenceSacro iliitis, not elsewhere classifiedPain in right hipEncounter for therapeutic drug level monitoring Oct-0 2 Marilyn Parker. [address] [place] [address], [id number] , [place]. tel:[phone] Referring Provider: Lucas Buitrago, [address] [place] [address], [address]. [phone] OFFICE VISIT, EST TELEMEDICINE [facility], [address] [place] [address], [id number] , [place] tel: [phone] [facility] Back Pain (chief complaint) Sacroiliitis, not elsewhere classifiedPain in right hipChronic pain syndromePain in left hipAnkylosing spondylitis in spineLong term (current) use of opiate analgesicDepres sionSpondylosis w/o myelopathy or radiculopathy, cervical regionRadiculop athy, lumbar regionNicotine dependence 2 Lisandro Osborne. [address] [facility] [address], [place], [place], [id number] , [place]. tel: [phone] Referring Provider: Alvaro Clements, [address], [address]. tel:[phone] OFFICE/OUTPAT IENT VISIT, [facility], [address] [place] [address], [id number] , [place] tel: [phone] [facility] Back Pain (chief complaint) Sacroiliitis, not elsewhere classifiedPain in right hipChronic pain syndromePain in left hipAnkylosing spondylitis in spineLong term (current) use of opiate analgesicDepres sionSpondylosis w/o myelopathy or radiculopathy, cervical regionRadiculop athy, lumbar regionNicotine dependence 1 Lisandro Osborne. [address] [facility] [address], [place], [place], [id number] , [place]. tel: [phone] Referring Provider: Lucas Buitrago, [address] [place] [address], [address]. tel:[phone] [facility], [address] [place] [address], [id number] , [place] tel: [phone] [facility] Sacroiliitis, not elsewhere classified 1 Crow Kiran. [facility], [address] [facility] [address], [place], [address], [place]. tel: [phone] Referring Provider: Lucas Buitrago, [address] [place] [address], [address]. tel:[phone] OFFICE/OUTPAT IENT VISIT, EST [facility], [address] [place] [address], [id number] , [place] tel: [phone] [facility] Back Pain (chief complaint) Pain in right hipChronic pain syndromePain in left hipAnkylosing spondylitis in spineLong term (current) use of opiate analgesicDepres sionNicotine dependenceSpond ylosis w/o myelopathy or radiculopathy, cervical regionSacroilii tis, not elsewhere classified 1 Nyongesa India. [address] [facility] [address], [place], [place], [id number] , [place]. tel: [phone] Referring Provider: Lucas Buitrago, [address] [place] [address], [address]. tel:[phone] [facility], [address] [place] [address], [id number] , [place] tel: [phone] [facility] Back Pain (chief complaint) Pain in right hipChronic pain syndromePain in left hipAnkylosing spondylitis in spineLong term (current) use of opiate analgesicDepres sionNicotine dependenceSpond ylosis w/o myelopathy or radiculopathy, cervical region 1 Nyongesa India. [address] [facility] [address], [place], [place], [id number] , [place]. tel: [phone] Referring Provider: Lucas Buitrago, [address] [place] [address], [address]. tel:[phone] [facility], [address] [place] [address], [id number] , [place] tel: [phone] [facility] No Information 1 Nyongesa India. [address] [facility] [address], [place], [place], [id number] , [place]. tel: [phone] OFFICE/OUTPAT IENT VISIT, EST [facility], [address] [place] [address], [id number] , [place] tel: [phone] [facility] Back Pain (chief complaint) Ankylosing spondylitis in spineLong term (current) use of opiate analgesicDepres sionNicotine dependenceSpond ylosis w/o myelopathy or radiculopathy, cervical regionEncounter for therapeutic drug level monitoringPain in right hipChronic pain syndromePain in left hip 8-202 1 Nyongesa [place]. [address] [facility] [address], [place], [id number] , [place]. [phone] Referring Provider: Lucas Buitrago, [address] [place] [address], [address]. [phone] OFFICE VISIT, EST TELEMEDICINE [facility], [address] [place] [address], [id number] , [place] [phone] [facility] Back Pain (chief complaint) Ankylosing spondylitis in spineLong term (current) use of opiate analgesicDepres sionNicotine dependencePain in right hipSpondylosis w/o myelopathy or radiculopathy, cervical regionChronic pain syndromePain in left hip Sep-3 0-202 1 Nyongesa [place]. [address] [facility] [address], [place], [id number] , [place]. [phone] Referring Provider: Lucas Buitrago, [address] [place] [address], [address]. [phone] OFFICE VISIT, EST TELEMEDICINE [facility], [address] [place] [address], [id number] , [place] tel:[phone] [facility] Back Pain (chief complaint) Ankylosing spondylitis in spineLong term (current) use of opiate analgesicDepres sionNicotine dependencePain in right hipSpondylosis w/o myelopathy or radiculopathy, cervical regionChronic pain syndrome Sep-0 2-202 1 Nyongesa [place]. [address] [facility] [address], [place], [id number] , [place]. [phone] Referring Provider: Lucas Buitrago, [address] [place] [address], [address]. [phone] OFFICE VISIT, EST TELEMEDICINE [facility], [address] [place] [address], [id number] , [place] [phone] [facility] Back Pain (chief complaint) Ankylosing spondylitis in spineLong term (current) use of opiate analgesicDepres sionNicotine dependencePain in right hipSpondylosis w/o myelopathy or radiculopathy, cervical regionChronic pain syndrome 1 Lisandro Osborne. [address] [facility] [address], [place], [place], [id number] , [place]. [phone] Referring Provider: Lucas Buitrago, [address] [place] [address], [address]. [phone] OFFICE/OUTPAT IENT VISIT, [facility], [address] [place] [address], [id number] , [place] [phone] [facility] Back Pain (chief complaint) Ankylosing spondylitis in spineLong term (current) use of opiate analgesicDepres sionNicotine dependencePain in right hipSpondylosis w/o myelopathy or radiculopathy, cervical regionChronic pain syndromeEncount er for screening for other disorder 1 Lisandro Osborne. [address] [facility] [address], [place], [place], [id number] , [place]. [phone] Referring Provider: Lucas Buitrago, [address] [place] [address], [address]. [phone] OFFICE/OUTPAT IENT VISIT, [facility], [address] [place] [address], [id number] , [place] [phone] [facility] Back Pain (chief complaint) Ankylosing spondylitis in spineLong term (current) use of opiate analgesicDepres sionNicotine dependencePain in right hipSpondylosis w/o myelopathy or radiculopathy, cervical regionChronic pain syndrome 1 Lisandro Osborne. [address] [address], [place], [place], [id number] , [place]. [phone] Referring Provider: Lucas Buitrago, [address] [place] [address], [address]. tel:[phone] OFFICE/OUTPAT IENT VISIT, EST [facility], [address] [place] [address], [id number] , [place] tel:[phone] [facility] Back Pain (chief complaint) Ankylosing spondylitis in spineLong term (current) use of opiate analgesicDepres sionNicotine dependencePain in right hipSpondylosis w/o myelopathy or radiculopathy, cervical regionChronic pain syndrome Nov-2 1 Sid India. [address] [address], [place], [place], [id number] , [place]. tel:[phone] Referring Provider: Lucas Buitrago, [address] [place] [address], [address]. [phone] [facility], [address] [place] [address], [id number] , [place] tel:[phone] [facility] Ankylosing spondylitis in spine 1 Sid India. [address] [address], [place], [place], [id number] , [place]. [phone] Referring Provider: Lucas Buitrago, [address] [place] [address], [address]. [phone] [facility], [address] [place] [address], [id number] , [place] [phone] [facility] Encounter for therapeutic drug level monitoringLong term (current) use of opiate analgesic Oct- 1 Nyongesa India. [address] [address], [place], [place], [id number] , [place]. [phone] OFFICE/OUTPAT IENT VISIT, EST [facility], [address] [place] [address], [id number] , [place] tel: [phone] [facility] [place] Back Pain (chief complaint) retirement (current) use of opiate analgesicAnkylo sing spondylitis in spineDepression Nicotine dependencePain in right hipSpondylosis w/o myelopathy or radiculopathy, cervical regionChronic pain syndromeEncount er for therapeutic drug level monitoring 1 Sid [place]. [address] [facility] [address], [place], [id number] , [place]. tel: [phone] Referring Provider: Lucas Buitrago, [address] [place] [address], [address]. tel:[phone] [facility], [address] [place] [address], [id number] , [place] tel: [phone] [facility] [place] No Information 1 Maria Magno. [facility], [address] [facility] [address], [place], [address], [place]. tel: [phone] Referring Provider: Lucas Buitrago, [address] [place] [address], [address]. tel:[phone] OFFICE VISIT, EST TELEMEDICINE [facility], [address] [place] [address], [id number] , [place] tel: [phone] [facility] Back Pain (chief complaint) Ankylosing spondylitis in spineDepression Nicotine dependencePain in right hipSpondylosis w/o myelopathy or radiculopathy, cervical regionLong term (current) use of opiate analgesicChroni c pain syndrome b-0 1 Lisandro Osborne. [address] [facility] [address], [place], [id number] , [place]. tel: [phone] [facility], [address] [place] [address], [id number] , [place] tel: [phone] [facility] [place] Spondylosis w/o myelopathy or radiculopathy, cervical region Sep-0 1 Lisandro Osborne. [address] [facility] [address], [place], [id number] , [place]. tel:[phone] Referring Provider: Lucas Buitrago, [address] [place] [address], [address]. tel:[phone] [facility], [address] [place] [address], [id number] , [place] [phone] [facility] Spondylosis w/o myelopathy or radiculopathy, cervical region 1 Evan Reynolds. [address] [place] [address], [id number] , [place]. [phone] Referring Provider: Lucas Buitrago, [address] [place] [address], [address]. tel:[phone] OFFICE VISIT, EST TELEMEDICINE [facility], [address] [place] [address], [id number] , [place] [phone] [facility] Back Pain (chief complaint) Ankylosing spondylitis in spineDepression Nicotine dependencePain in right hipSpondylosis w/o myelopathy or radiculopathy, cervical regionLong term (current) use of opiate analgesicChroni c pain syndrome 1 Nyongesa [place]. [address] [facility] [address], [place], [place], [id number] , [place]. [phone] Referring Provider: Lucas Buitrago, [address] [place] [address], [address]. [phone] OFFICE VISIT, EST TELEMEDICINE [facility], [address] [place] [address], [id number] , [place] tel:[phone] [facility] Back Pain (chief complaint) Ankylosing spondylitis in spineDepression Nicotine dependencePain in right hipSpondylosis w/o myelopathy or radiculopathy, cervical regionLong term (current) use of opiate analgesicChroni c pain syndrome 0 Nyongesa [place]. [address] [facility] [address], [place], [place], [id number] , [place]. [phone] Referring Provider: Lucas Buitrago, [address] [place] [address], [address]. [phone] OFFICE VISIT, EST TELEMEDICINE [facility], [address] [place] [address], [id number] , [place] tel:[phone] [facility] Back Pain (chief complaint) Ankylosing spondylitis in spineDepression Nicotine dependencePain in right hipSpondylosis w/o myelopathy or radiculopathy, cervical regionLong term (current) use of opiate analgesicChroni c pain syndrome 0 Nyongesa India. [id number] [place] [address] [facility] [address], [place], [place], [id number] , [place]. tel:[phone] Referring Provider: Lucas Buitrago, [address] [place] [address], [address]. [phone] OFFICE/OUTPAT IENT VISIT, [facility], [address] [place] [address], [id number] , [place] tel: [phone] [facility] Back Pain (chief complaint) Ankylosing spondylitis in spineCervicalgi aDepressionNico glenda dependencePain in right hipSpondylosis w/o myelopathy or radiculopathy, cervical regionLong term (current) use of opiate analgesicChroni c pain syndrome 0 Nyongesa India. [address] [place] [address] [facility] [address], [place], [place], [id number] , [place]. tel:[phone] Referring Provider: Lucas Buitrago, [address] [place] [address], [address]. tel:[phone] [facility], [address] [place] [address], [id number] , [place] [phone] [facility] Spondylosis without myelopathy or radiculopathy, cervical region 0 Nyongesa India. [address] [place] [address] [address], [place], [place], [id number] , [place]. tel:[phone] Referring Provider: Lucas Buitrago, [address] [place] [address], [address]. tel:[phone] [facility], [address] [place] [address], [id number] , [place] tel: [phone] [facility] [place] Spondylosis without myelopathy or radiculopathy, cervical region Oct- 0 Nyongesa India. [address] [facility] [address], [place], [place], [id number] , [place]. tel: [phone] Referring Provider: Lucas Buitrago, [address] [place] [address], [address]. tel:[phone] [facility], [address] [place] [address], [id number] , [place] tel: [phone] [facility] Spondylosis without myelopathy or radiculopathy, cervical region May- 0 Evan Reynolds. [address] [place] [address], [id number] , [place]. tel: [phone] Referring Provider: Lucas Buitrago, [address] [place] [address], [address]. tel:[phone] OFFICE/OUTPAT IENT VISIT, [facility], [address] [place] [address], [id number] , [place] tel: [phone] [facility] Back Pain (chief complaint) Ankylosing spondylitis in spineCervicalgi aDepressionNico glenda dependencePain in right hipSpondylosis w/o myelopathy or radiculopathy, cervical regionLong term (current) use of opiate analgesicChroni c pain syndrome Sep-2 0 Nyongesa [place]. [address] [facility] [address], [place], [place], [id number] , [place]. tel: [phone] Referring Provider: Lucas Buitrago, [address] [place] [address], [address]. tel:[phone] OFFICE/OUTPAT IENT VISIT, [facility], [address] [place] [address], [id number] , [place] tel: [phone] [facility] Back Pain (chief complaint) Ankylosing spondylitis in spineCervicalgi aDepressionNico glenda dependencePain in right hipSpondylosis w/o myelopathy or radiculopathy, cervical regionLong term (current) use of opiate analgesicChroni c pain syndrome Sep-0 0 Lisandro Osborne. [address] [facility] [address], [place], [place], [id number] , [place]. tel:[phone] Referring Provider: Lucas Buitrago, [address] [place] [address], [address]. [phone] [facility], [address] [place] [address], [id number] , [place] [phone] [facility] cervicalgia (chief complaint) Ankylosing spondylitis in spineCervicalgi a 0 Cadence Pat. [address] [place], [place], [id number] , [place]. [phone] Referring Provider: Lucas Buitrago, [address] [place] [address], [address]. tel:[phone] OFFICE/OUTPAT IENT VISIT, EST [facility], [address] [place] [address], [id number] , [place] [phone] [facility] Back Pain (chief complaint) DepressionNicot ine dependencePain in right hipSpondylosis w/o myelopathy or radiculopathy, cervical regionLong term (current) use of opiate analgesicChroni c pain syndromeAnkylos ing spondylitis in spine 0 Lisandro Osborne. [address] [facility] [address], [place], [place], [id number] , [place]. [phone] Referring Provider: Lucas Buitrago, [address] [place] [address], [address]. tel:[phone] Psych Dx Eval [facility], [address] [place] [address], [id number] , [place] [phone] [facility] Pain disorder with related psychological factorsMajor depressive disorder, recurrent, in partial remission 0 Fiorella Kong Peg. [address] [place], [place], [id number] , [place]. tel:[phone] Referring Provider: Lucas Buitrago, [address] [place] [address], [address]. tel:[phone] OFFICE/OUTPAT IENT VISIT, [facility], [address] [place] [address], [id number] , [place] tel:[phone] [facility] Back Pain (chief complaint) Chronic pain syndromeAnkylos ing spondylitis in spineDepression Nicotine dependencePain in right hipSpondylosis w/o myelopathy or radiculopathy, cervical regionLong term (current) use of opiate analgesic 0 Nyongesa India. [address] [place] [address] [address], [place], [place], [id number] , [place]. tel: [phone] Referring Provider: Lucas Buitrago, [address] [place] [address], [address]. tel:[phone] [facility], [address] [place] [address], [id number] , [place] tel:[phone] [facility] Spondylosis w/o myelopathy or radiculopathy, cervical region 0 Nyongesa India. [address] [place] [address] [address], [place], [place], [id number] , [place]. tel: [phone] OFFICE/OUTPAT IENT VISIT, [facility], [address] [place] [address], [id number] , [place] tel: [phone] [facility] Back Pain (chief complaint) Chronic pain syndromeAnkylos ing spondylitis in spineDepression Nicotine dependencePain in right hipLong term (current) use of opiate analgesicSpondy losis w/o myelopathy or radiculopathy, cervical region 0 Nyongesa [place]. [address] [facility] [address], [place], [place], [id number] , [place]. tel: [phone] Referring Provider: Lucas Buitrago, [address] [place], [address]. tel:[phone] OFFICE/OUTPAT IENT VISIT, [facility], [address] [place], [place], [id number] , [place] [phone] [facility] [place] Back Pain (chief complaint) Chronic pain syndromeAnkylos ing spondylitis in spineDepression Nicotine dependencePain in right hipEncounter for therapeutic drug level monitoringCervi michelle 0 Nyadrianna Osborne. [address], [place], [place], [id number] , [place]. tel:[phone] Referring Provider: Alvaro Clements, [facility] [address] [place], [address]. tel:[phone] Family History Family Member Type Diagnosis Age At Onset Mother Problem ankylosing spondylitis Payers Payer name Insurance type Covered alliance party ID Saloni patricio(s) [facility] [id number] Social History Type Description Quantity Date Captured Comments Alcohol Use Details Unknown Caffeine Use Details Unknown Tobacco Use Status Smoking Status No Information Sex Female Chief Complaint And Reason For Visit No Information Reason For Referral Reason For Referral No Information Plan Of Treatment Date Type Action Status Goal Creatinine. Due on due Goal DIE FILER Scanned. Due on 022 due Goal ALT (SGPT). Due on due Goal OARS. Due on due Goal UDT. Due on due Goal Order Annual PT. Due on due Goal CLIENT SERVICES ASSISTANT Paperwork. Due on due Goal AST (SGOT). Due on due Goal PHQ-9. Due on du e Goal Unhealthy drug u se screening. Due on due Goal Medication Recon ciliation. Due on due Goal Update Social Hi story. Due on due Goal Height. Due on d ue Goal Review Allergy L ist. Due on due Goal Hepatitis C scre ening. Due on due Goal Weight. Due on d ue Goal HPV. Due on due Goal Tobacco Use. Due on due Goal UDT. Due on due Goal CLIENT SERVICES ASSISTANT Paperwork. Due on due Goal DIE FILER Scanned. Due on due Goal Tobacco Use. Due on due Goal Update Social Hi story. Due on due Goal Weight. Due on d ue Goal Review Allergy L ist. Due on due Goal Medication Recon ciliation. Due on due Goal PHQ-9. Due on du e Goal Unhealthy drug u se screening. Due on due Goal Height. Due on d ue Goal Hepatitis C scre ening. Due on due Goal HPV. Due on due Goal ALT (SGPT). Due on due Goal Order Annual PT. Due on due Goal AST (SGOT). Due on due Goal Creatinine. Due on due Goal OARS. Due on due Goal AST (SGOT). Due on due Goal CLIENT SERVICES ASSISTANT Paperwork. Due on due Goal ALT (SGPT). Due on due Goal UDT. Due on due Goal OARS. Due on due Goal Creatinine. Due on due Goal DIE FILER Scanned. Due on due Goal Order Annual PT. Due on due Goal Tobacco Use. Due on due Goal Medication Recon ciliation. Due on due Goal PHQ-9. Due on du e Goal Weight. Due on d ue Goal Height. Due on d ue Goal Update Social Hi story. Due on due Goal Review Allergy L ist. Due on due Goal Hepatitis C scre ening. Due on due Goal HPV. Due on due Goal Unhealthy drug u se screening. Due on due Goal Creatinine. Due on due Goal CLIENT SERVICES ASSISTANT Paperwork. Due on due Goal Update Social Hi story. Due on due Goal Tobacco Use. Due on due Goal PHQ-9. Due on du e Goal Weight. Due on d ue Goal Medication Recon ciliation. Due on due Goal Height. Due on d ue Goal Review Allergy L ist. Due on due Goal DIE FILER Scanned. Due on due Goal AST (SGOT). Due on due Goal Order Annual PT. Due on due Goal OARS. Due on due Goal ALT (SGPT). Due on due Goal UDT. Due on due Goal Creatinine. Due on due Goal CLIENT SERVICES ASSISTANT Paperwork. Due on due Goal Update Social Hi story. Due on due Goal Tobacco Use. Due on due Goal PHQ-9. Due on du e Goal Weight. Due on d ue Goal Medication Recon ciliation. Due on due Goal Height. Due on d ue Goal Review Allergy L ist. Due on due Goal DIE FILER Scanned. Due on due Goal AST (SGOT). Due on due Goal Order Annual PT. Due on due Goal OARS. Due on due Goal ALT (SGPT). Due on due Goal UDT. Due on due Goal Creatinine. Due on due Goal CLIENT SERVICES ASSISTANT Paperwork. Due on due Goal Update Social Hi story. Due on due Goal Tobacco Use. Due on due Goal PHQ-9. Due on du e Goal Weight. Due on d ue Goal Medication Recon ciliation. Due on due Goal Height. Due on d ue Goal Review Allergy L ist. Due on due Goal DIE FILER Scanned. Due on due Goal AST (SGOT). Due on due Goal Order Annual PT. Due on due Goal OARS. Due on due Goal ALT (SGPT). Due on due Goal UDT. Due on due Goal Creatinine. Due on due Goal CLIENT SERVICES ASSISTANT Paperwork. Due on due Goal Update Social Hi story. Due on due Goal Tobacco Use. Due on due Goal PHQ-9. Due on du e Goal Weight. Due on d ue Goal Medication Recon ciliation. Due on due Goal Height. Due on d ue Goal Review Allergy L ist. Due on due Goal DIE FILER Scanned. Due on due Goal AST (SGOT). Due on due Goal Order Annual PT. Due on due Goal OARS. Due on due Goal ALT (SGPT). Due on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
--- OUTSIDE RECORDS SUMMARY | 2023-11-27 11:35 | XMS_ITS | Continuity of Care Document ---
Author Name Unknown Organization [facility] Address [address] [place] [address] Care Team Providers Care Engineering Psychologist Name Role Phone [facility] Unavailable Unav ailable Procedures Procedure Date [...] Date Provider Providers Copied on Encounter [facility], [address] [place], [place], [id number], [facility] No Information [facility]. [address] [place], [place], [id number], [place]. tel:[phone] Referring Provider: Gail Gordon, [address] [place], [address]. tel:[phone] [facility], [address] [place], [place], [id number], [facility] No Information [facility]. [address] [facility] [place], [place], [id number], [place]. tel:[phone] Referring Provider: Irma Smith[address] [place], [address]. tel:[phone] Family History Family Member Type Diagnosis Age At Onset No Information Payers Payer name Insurance type Covered alliance party ID Authoriza tion(s) No Information Social [...]
--- OUTSIDE RECORDS SUMMARY | 2023-11-27 11:35 | XMS_ITS | Continuity of Care Document ---
Author Name Unknown Organization [facility] Address [address] [place] [address] Care Team Providers Care Stone Splitter Name Role Phone Charanjit Rader CRNA Unavailable Unavailable Procedures Procedure Date ANESTH, HEAD/NECK/PTRUNK ANESTH PERC IMG TX SP PROC Advance Directives Directive Yes / No Effective Date File Name No Information Encounters Encounter Description Practice Location Reason(s) For Visit Diagnoses Date Provider Providers Copied on Encounter [facility], [address] [place] [address], [id number], [facility] No Information Dior Donohue. [address] [place] [address], [id number], . tel:[phone] Referring Provider: Gail Gordon, [address] [place] [address], [id number] . tel:[phone] [facility], [address] [place] [address], [id number], [facility] No Information Ivis Luis. [address] [place] [address] Ln, [place], [place], [id number], . tel:[phone] Referring Provider: Gail Gordon, [address] [place] [address], [address] . tel:[phone] Family History Family Member Type Diagnosis Age [...]
--- OUTSIDE RECORDS SUMMARY | 2023-11-27 11:35 | XMS_ITS | Continuity of Care Document ---
Author Name Unknown Organization [facility] Address [address] [place] [address] Phone Care Team Providers Care Adjunct Art History Instructor Name Role Phone [facility] Unavailable Unava ilable Procedures Procedure Date INJECT SACROILIAC JOINT Inj for sacroiliac jt anesth Advance Directives Directive Yes / No Effective Date File Name No Information Encounters Encounter Description Practice Location Reason(s) For Visit Diagnoses Date Provider Providers Copied on Encounter [facility], [address] [place] [address], [id number], [place] tel:[phone] [facility] No Information [facility]. [address] [place] [address], [id number], [place]. tel:[phone] Referring Provider: Kristin Dumont [address], [place], [address]. tel:[phone] Family History Family Member Type Diagnosis Age [...]
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
--- OUTSIDE RECORDS SUMMARY | 2023-11-27 11:36 | XMS_ITS | Clinical Summary ---
Author Name Unknown Organization [facility] Address [place], [place] [address] Care Team Providers Care Lens Coating Technician Name Role Phone Alvaro Clements MD Primary Care Provider [phone] Allergies Active Allergy Reactions Criticality Noted Date Comments Penicillins Rash 04/11/2016 Medications Medication Sig Dispensed Refills Start Date End Date Status sertraline (ZOLOFT) 100 mg tablet Take 100 mg by mouth at bedtime. Active lamoTRIgine (LAMICTAL) 100 mg tablet Take 100 mg by mouth 2 times daily. 05/29/2017 Active albuterol HFA (VENTOLIN HFA) 90 mcg/actuation inhalerIndications :Exacerbation of asthma, unspecified asthma severity, unspecified whether persistent,Upper respiratory tract infection, unspecified type Inhale 2 Puffs by mouth 4 times daily if needed. 1 Inhaler 01/28/2018 Active cyclobenzaprine (FLEXERIL) 10 mg tabletIndications: Acute pain of right shoulder Take 1 tablet by mouth 3 times daily if needed for Muscle Spasm. 20 tablet 08/01/2018 Active gabapentin (NEURONTIN) 300 mg capsule TK ONE C PO TID 1 06/22/2018 Active lidocaine 5 % oint topical ointment APPLY A THIN FILM TOPICALLY TO AFFECTED AREA D PRN 1 06/24/2018 Active adalimumab (HUMIRA,CF, PEN) 40 mg/0.4 mL pnkt 07/13/2019 Active HYDROcodone-acetam inophen, 5-325 mg, (NORCO) per tablet Take 1 Tab by mouth 06/30/2019 Active hydrOXYzine HCl (ATARAX) 25 mg tablet TK 1-2 TS PO Q 4 TO 6 H PRN 07/21/2019 Active ketorolac (TORADOL) 10 mg tablet Take 10 mg by mouth. 06/30/2019 Acti ve LORazepam (ATIVAN) 1 mg tablet TK 1/2 T TO 1 T PO BID PRF SEVERE ANXIETY 0 11/24/2018 Active orphenadrine (NORFLEX) 100 mg tablet Take 100 mg by mouth. 05/29/2019 Active oxyCODONE-acetamin ophen, 5-325 mg, (PERCOCET) 5-325 mg per tablet TK 1 T PO Q 4 TO 6 H PRF PAIN 07/27/2019 Active traZODone (DESYREL) 50 mg tablet TK 1 TO 2 TS PO HS PRN 0 11/24/2018 Active lidocaine 5 % oint topical ointment as needed. 06/24/2018 Active acetaminophen (TYLENOL EXTRA STRGTH) 500 mg tabletIndications: Upper respiratory tract infection, unspecified type Take 2 tablets by mouth every 6 hours if needed. Max acetaminophen dose: 4000mg in 24 hrs. 30 tablet 10/20/2019 Active Active Problems Problem Noted Date Diagnosed Date Levator spasm 06/11/2017 Overview: Added automatically from request for surgery [id number] Atypical squamous cells of u ndetermined significance (ASCUS) on Papanicolaou smear of cervix 01/02/2014 Overview: HPV negative; 01/2014-colp DAR 1 Syncope and collapse 04/09/2011 Supervision of normal first 04/06/2009 Abdominal pain, left lower quadrant 02/19/2009 Overview: Endometriosis, site unspecified 07/25/2006 ASTHMA, exercise induced 04/15/2006 ESOPHAGEAL REFLUX 04/21/2003 ANKLE PAIN 02/27/2001 COUNSELING, PERP, PHYSICAL/SEXUAL ABUSE 02/03/20 01 DEPRESSIVE DISORDER, MAJOR RECUR, UNSPECIFIED ACNE 07/02/2000 Immunizations Name Administration Dates Next Due DTP 10/20/1992, 8,05/01/1987,03/03/1987, 1986 HIB PRP-OMP (PedvaxHIB) 10/28/1988 Influenza, IIV3 (Age >=3 years) 05/03/2009,06/03 MMR 04/02/1993,03/15/1988 Meningococcal Vaccine 04/15/2006 Oral Polio Vaccine 10/20/1992,03/15/1988, 987,1986 Tdap 11/27/2009 Family History Medical History Relation Name Comments Alcohol/Drug Brother 2 Allergies Father Good Health Father Arthritis Maternal Grandmother GI Disease Maternal Grandmother reflux Allergies Mother Arthritis Mother RA Cancer Paternal Grandmother lung ca ncer Psychiatric illness Paternal Grandmother depression Relation Name Status Comments Brother 1 Alive Brother 2 Father Alive Maternal Grandfather Alive Maternal Grandmother Alive Mother Alive Paternal Grandfather Alive Paternal Grandmother Social History Tobacco Use Types Packs/Day Years Used Date Smoking Tobacco: Every Day Cigarettes 0.5 15 Smokeless Tobacco: Never Tobacco Cessation:Ready to Q uit: No; Counseling Given: Yes Comments:Attempted to quit 04/13/09 Alcohol Use Standard Drinks/Week Comments Yes 1 (1 standard drink = 0.6 oz pur e alcohol) occasional; social Sex and Gender Information Value Date Recorded Sex Assigned at Not on file Gender Identity Not on file Sexual Orientation Not on file Obstetrics History Para Term AB IAB SAB Ectopic Multiple Livin g Live Births 2 0 0 0 1 0 1 0 0 1 Date Outcome GA Total Labor Labor/2nd/3rd Weight Sex Delivery Anes PTL [place] A1 A5 Name Cl in Comments:System Genera gonzalo. Please review and update details. SAB Comments LMP 10/06/08 Last Filed Vital Signs Vital Sign Reading Time Taken Comments Blood Pressure 110/69 10/20/2019 12:12 PM CDT Pulse 71 10/20/2019 12:12 PM CDT Temperature 36.9 ??C (98.4 ??F) 10/20/2019 1 2:12 PM CDT Respiratory Rate 18 10/20/2019 12:1 2 PM CDT Oxygen Saturation 98% 10/20/2019 12: 12 PM CDT Inhaled Oxygen Concentration - - Weight 62.1 kg (136 lb 12.8 oz) 10/20/2019 9:54 AM CDT Height 165.1 cm (5' 5) 10/20/2019 9:54 AM CDT Body Mass Index 22.76 10/20/2019 9:54 AM CDT Plan of Treatment Health Maintenance Due Date Last Done Comments Pap test for age 21-65 12/27/2017 5, 12/27/2014, 12/09/2013, Additional history exists Depression screening for age 12+ 05/30/2018 05/30/2017 BMI (ht and wt on same day) for age 18+ 09/01/2019 09/01/2018, 05/25/2018, 01/28/2018, Additional history exists Tetanus booster 11/28/2019 11/27/2009 COVID-19 vaccine series (2022-24 season) 2023 Influenza for age 9-49 04/04/2024 05/03/2009, 2002 Hepatitis C screening for age 18-79 Completed 12/04/2004, 04/04/2004 HIV for age 15-65 Completed 12/19/2008 Tdap Completed 11/27/2009 Pneumococcal series for age 6-64 Aged Out No longer eligible based on patient's age to complete this topic Procedures Procedure Name Priority Date/Time Associated Diagnosis Comments CORD MAKER THIN PREP PAP DIAGNOSTIC IMAGED Routine 12/27/2014 3:49 PM CDT ASCUS favoring benign ANTI HIV 1/2 Routine 12/19/2008 10:35 AM CDT Supervision of Other Normal ANTI HCV Timed 12/04/2004 3:30 PM CDT from Last 3 Months or Most Recently Relevant to Health Maintenance Results * CORD MAKER THIN PREP PAP DIAGNOSTIC IMAGED (12/27/2014 3:49 PM CDT) CORD MAKER CYTOLOGY See Anatomic Pathology case 01/01/2015 4:00 PM CDT [facility] Specimen (specimen) Non-Blood / Unknown 12/27/2014 3:49 PM CDT 12/27/2014 3:50 PM CDT Ekaterina ROLON PATHOLOGY/CYTOL OGY [facility] [facility] [address] [place] [address], * ANTI HIV 1/2 (12/19/2008 10:35 AM CDT) ANTI HIV 1/2 Non-reacti ve [facility] Blood specimen (specimen) BLOOD SPECIMEN / Unknown 12/19/2008 10:35 AM CDT 12/19/2008 10:34 AM CDT Sophia Keith DO [facility] [place]NAL ZIP [address] [address] * ANTI HCV (12/04/2004 3:30 PM CDT) ANTI HCV Non-reactiv e [facility] 12/04/2004 3:30 PM CDT 12/04/2004 10:03 PM CDT Narrative [facility] - 12/06/2004 1:45 PM CDT Testing Performed By [place], [place] Cristel Carranza MD [facility] [address] [place] [address] from Last 3 Months or Most Recently Relevant to Health Maintenance Advance Directives * Full Code (Latest Code Status on File) Date Activated Date Inactivated Comments 06/25/2017 8:56 AM 06/25/2017 1:38 PM * Full Code Date Activated Date Inactivated Comments 06/15/2012 11:45 AM 06/17/2012 3:25 PM * Full Code Date Activated Date Inactivated Comments 02/19/2009 6:03 PM 02/19/2009 11:52 PM Care Teams Lens Coating Technician Relationship Specialty Start Date End Date Alvaro Clements MD [address] [place] [address] PCP - General Family Practice 01/23/18
== END 2023-11-25 09:22 | disposition home or self-care (01) ==
LOC: NFLDREF 11-27 11:30
PROVIDERS: PCP Family Medicine; Referring Provider Family Medicine; Visit Provider Obstetrics & Gynecology
DX: N39.0 Urinary tract infection, site not specified (principal); Z11.3 Encounter for screening for infections with a predominantly sexual mode of transmission
CPT/HCPCS: 87086; 87491; 87591

== ENCOUNTER 2024-03-26 11:05 | Outpatient (CLI) | payer MEDICARE, MEDICAID, SELFPAY ==
[2024-03-26 14:13] LABS: Bacterial Vaginosis* POSITIVE (Negative); Candida glab/krus NOT DETECTED (No Detected); Candida species NOT DETECTED (No Detected); Trichomonas vaginalis NOT DETECTED (No Detected)
== END 2024-03-26 11:06 | disposition home or self-care (01) ==
PROVIDERS: PCP Internal Medicine; Visit Provider Obstetrics & Gynecology
DX: N89.8 Other specified noninflammatory disorders of vagina (principal); L29.2 Pruritus vulvae; B37.31 Acute candidiasis of vulva and vagina
CPT/HCPCS: 81513; 87086; 87481; 87661

== ENCOUNTER 2024-04-06 09:17 | Outpatient (CLI) | payer MEDICARE, MEDICAID, SELFPAY ==
--- OUTSIDE RECORDS SUMMARY | 2024-04-06 09:37 | XMS_ITS | Continuity of Care Document ---
Author Organization [facility] Address [address] [place] [address] Phone Care Team Providers Care Landscape Maintenance Internship Name Role Phone [facility] Unavailable Unava ilable Procedures Procedure Date Facet Jt Inj Lumbar RIGHT Facet Jt Inj Lumbar LEFT Facet Inj Lumbar 2nd Level RIGHT 2023 Facet Inj Lumbar 2nd Level LEFT 024 Inj for sacroiliac jt anesth Advance Directives Directive Yes / No Effective Date File Name No Information Encounters Encounter Description Practice Location Reason(s) For Visit Diagnoses Date Provider Providers Copied on Encounter [facility], [address] [place] [address], [id number], tel:[phone] [place] [address] No Information [facility]. [address] [place] [address], [id number], [place]. tel:[phone] Referring Provider: Michlee Lees, [address] [facility] [place], [place], [address] . tel:[phone] [facility], [address] [place] [address], [id number], tel:[phone] [place] [address] No Information [facility]. [address] [place] [address], [id number], [place]. tel:[phone] Referring Provider: [facility] [address] [facility] [address], [place], [address]. tel:[phone] Family History Family Member Type Diagnosis Age At Onset No Information Payers Payer name Insurance type Covered constitution party ID Authorsondraa sintia(s) Medicare MB [id number] [facility] [id number] Social History Type Description Quantity Date Captured [...]
--- OUTSIDE RECORDS SUMMARY | 2024-04-06 09:37 | XMS_ITS | Continuity of Care Document ---
Author Organization [facility] Address [address] [facility] [place] [address] Care Team Providers Care Engineering Instructor Name Role Phone [facility] Unavailable Unav ailable Procedures Procedure [...] Diagnoses Date Provider Providers Copied on Encounter [facility], [address] [place], [place], [id number], [facility] No Information [facility]. [address] [place], [place], [id number], [place]. tel:[phone] Referring Provider: Gail Gordon, [address] [place], [address]. tel:[phone] [facility], [address] [place], [place], [id number], [facility] No Information [facility]. [address] [place], [place], [id number], [place]. tel:[phone] Referring Provider: Gail Gordon, [address] [place], [address]. tel:[phone] Family History Family Member Type Diagnosis Age [...]
--- OUTSIDE RECORDS SUMMARY | 2024-04-06 09:37 | XMS_ITS | Continuity of Care Document ---
Author Organization [facility] Address [address] [address] [place] [address] Phone Care Team Providers Care Hand Scraper Name Role Phone No Information Unavailable Unavailable Advance Directives Directive Yes / No Effective Date File Name No Information Encounters Encounter Description Practice Location Reason(s) For Visit Diagnoses Date Provider Providers Copied on Encounter [facility], [address] [address], [place], [place], [id number], [place] tel:[phone] No Information No Information Family History Family [...]
--- OUTSIDE RECORDS SUMMARY | 2024-04-06 09:37 | XMS_ITS | Continuity of Care Document ---
Author Organization [facility] Address [address] [place] [address] Care Team Providers Care Dust Mop Maker Name Role Phone Meliton Keith CRNA Unavailable Unavailable Procedures Procedure Date Percutaneous Image guided injection, dra buenrostro, or ANESTH, HEAD/NECK/PTRUNK ANESTH PERC IMG TX SP PROC Advance Directives Directive Yes / No Effective Date File Name No Information Encounters Encounter Description Practice Location Reason(s) For Visit Diagnoses Date Provider Providers Copied on Encounter [facility], [address] [place] [address], [id number], [facility] No Information 4 Sagar Coelho. [address] [place] [address], [id number], . tel:[phone] Referring Provider: Michele Lees, [address] [place] [address], [address] . tel:[phone] [facility], [address] [place] [address], [id number], [facility] No Information 1 Dior Donohue. [address] [place] [address], [place], [place], [id number], . tel:[phone] Referring Provider: Gail Gordon, [address] [place] [address], [address] . tel:[phone] [facility], [address] [place] [address], [id number], [facility] No Information 0 Ivis Luis. [address] [facility], [facility] [place], [place], [place], [id number], . tel:[phone] Referring Provider: Gail Gordon, [address] [facility] [place], [address] . tel:[phone] Family History Family Member Type Diagnosis Age At Onset No Information Payers Payer name Insurance type Covered constitution party ID Authorisa patricio(s) Medicare MB [id number] [facility] [id number] Social History Type Description Quantity Date Captured [...]
--- OUTSIDE RECORDS SUMMARY | 2024-04-06 09:38 | XMS_ITS | Continuity of Care Document ---
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 Name Role Phone Will Lucas JORDAN Unavailable Unavailabl e Allergies, Adverse Reactions, Alerts Substance Reaction Status Criticality PENICILLIN Hives/Skin Rash Active No Informati on Medications Medication Instructions Dosage Effective Dates (start - stop) Status Comments Butrans 5 mcg/hour transdermal patch apply 1 patch by transdermal route every 7 days 5 MCG/H - Active Abilify 5 mg tablet take 1 tablet by ora l route every day 5 MG - Active buspirone 7.5 mg tablet take 1 tablet by oral route 2 times every day 7.5 MG - Active Wellbutrin SR 150 mg tablet, 12 hr sustained-release take 1 tablet by oral route 2 times every day 150 MG - Active Adderall 5 mg tablet take 1 tablet by or al route 2 times every day before breakfast and at noon 5 MG - Active trazodone 50 mg tablet take 1 - 2 tablet by ORAL route every bedtime after meals 50 MG - Active Lexapro 20 mg tablet take 1 tablet by or al route every day 20 MG - Active lorazepam 0.5 mg tablet take 1 tablet by oral route every day as needed as needed 0.5 MG - Active Proair Digihaler 90 mcg/actuation aerosol powder breath act, sensor inhale 2 puff by inhalation route every 4 - 6 hours as needed 180 MCG - Active medical cannabis ORAL - Active Procedures Procedure Date Facet Jt In Or MBB j Lumbar BILATERAL Ju l-09-2024 Facet Inj Or MBB Lumbar 2nd Level BILATE RAL OFFICE/OUTPATIENT VISIT, EST Drug test def 8-14 classes Drug Urine Toxology With Chromatography OFFICE/OUTPATIENT VISIT, EST OFFICE VISIT, EST TELEMEDICINE 22 Foll-up eval q3mo opiod tx Drug Urine [...] TELEMEDICINE 21 Foll-up eval q3mo opiod tx OFFICE/OUTPATIENT VISIT, [...] Trial Satellite IMPLANT NEUROELECTRODES ASC IMPLANT NEUROELECTRODES [facility] Implt neurostim elctr each FLUOROGUIDE FOR SPINE [...] Diagnoses Date Provider Providers Copied on Encounter [facility], [address] [place] [address], [id number] , [place] tel: [phone] [facility] No Information 4 Mejia Zavala. [address] [place], [place], [id number] , [place]. tel: [phone] [facility], [address] [place] [address], [id number] , [place] tel: [phone] [facility] Other spondylosis, lumbar region 4 Sid [place]. [address] [facility] [address], [place], [id number] , [place]. tel: [phone] [facility], [address] [place] [address], [id number] , [place] tel: [phone] [facility] Other spondylosis, lumbar region 4 Yoana Bautista. [address] [facility] [place], [place], [id number] , [place]. tel: [phone] Referring Provider: Lucas Buitrago, [address] [place] [address], [address]. [phone] OFFICE/OUTPAT IENT VISIT, EST [facility], [address] [place] [address], [id number] , [place] tel:[phone] [facility] Back Pain (chief complaint) Chronic pain syndromeLong term (current) use of opiate analgesicDepres sionOther spondylosis, lumbar regionRadiculop athy, cervical regionEncounter for therapeutic drug level monitoring 4 Sid [place]. [address] [facility] [address], [place], [id number] , [place]. tel: [phone] Referring Provider: Lucas Buitrago, [address] [place] [address], [address]. [phone] OFFICE/OUTPAT IENT VISIT, [facility], [address] [place] [address], [id number] , [place] [phone] [facility] low back pain (chief complaint) Nicotine dependenceDepre ssionChronic pain syndromePain in right hipPain in left hipSacroiliitis , not elsewhere classifiedSpond ylosis w/o myelopathy or radiculopathy, cervical regionRadiculop athy, lumbar regionLong term (current) use of opiate analgesic Jun-2 8 2 Nyongesa [place]. [id number] [place] [address] [address], [place], [place], [id number] , [place]. tel:[phone] Referring Provider: Lucas Buitrago, [address] [place] [address], [address]. tel:[phone] OFFICE VISIT, [facility] TELEMEDICINE [facility], [address] [place] [address], [id number] , [place] tel:[phone] [facility] low back pain (chief complaint) Nicotine dependenceDepre ssionChronic pain syndromePain in right hipPain in left hipSacroiliitis , not elsewhere classifiedSpond ylosis w/o myelopathy or radiculopathy, cervical regionRadiculop athy, lumbar regionLong term (current) use of opiate analgesic Oct-3 0- 2 Nyongesa [place]. [address] [place] [address] [address], [place], [place], [id number] , [place]. tel:[phone] Referring Provider: Lucas Buitrago, [address] [place] [address], [address]. [phone] [facility], [address] [place] [address], [id number] , [place] [phone] [facility] No Information Mar-0 2-202 2 Marilyn Parker. [address] [place] [address], [id number] , [place]. tel:[phone] OFFICE/OUTPAT IENT VISIT, EST [facility], [address] [place] [address], [id number] , [place] tel:[phone] [facility] Back Pain (chief complaint) Ankylosing spondylitis in spineChronic pain syndromePain in left hipLong term (current) use of opiate analgesicSpondy losis w/o myelopathy or radiculopathy, cervical regionDepressio nRadiculopathy, lumbar regionNicotine dependenceSacro iliitis, not elsewhere classifiedPain in right hipEncounter for therapeutic drug level monitoring 2 2 Marilyn Parker. [address] [place] [address], [id number] , [place]. tel:[phone] Referring Provider: Lucas Buitrago, [address] [place] [address], [address]. [phone] OFFICE VISIT, EST [facility], [address] [place] [address], [id number] , [place] [phone] [facility] Back Pain (chief complaint) Sacroiliitis, not elsewhere classifiedPain in right hipChronic pain syndromePain in left hipAnkylosing spondylitis in spineLong term (current) use of opiate analgesicDepres sionSpondylosis w/o myelopathy or radiculopathy, cervical regionRadiculop athy, lumbar regionNicotine dependence 2 [facility] [place]. [address] [place] [address] [address], [place], [place], [id number] , [place]. tel:[phone] Referring Provider: Alvaro Clements, [facility] [address] [place], [address]. tel:[phone] OFFICE/OUTPAT IENT VISIT, [facility], [address] [place] [address], [id number] , [place] tel:[phone] [facility] Back Pain (chief complaint) Sacroiliitis, not elsewhere classifiedPain in right hipChronic pain syndromePain in left hipAnkylosing spondylitis in spineLong term (current) use of opiate analgesicDepres sionSpondylosis w/o myelopathy or radiculopathy, cervical regionRadiculop athy, lumbar regionNicotine dependence 1 Sid [place]. [address] [facility] [address], [place], [place], [id number] , [place]. tel: [phone] Referring Provider: Lucas Buitrago, [address] [place] [address], [address]. tel:[phone] [facility], [address] [place] [address], [id number] , [place] tel: [phone] [facility] Sacroiliitis, not elsewhere classified 1 Maria Magno. [facility], [address] [facility] [address], [place], [address], [place]. tel: [phone] Referring Provider: Lucas Buitrago, [address] [place] [address], [address]. tel:[phone] OFFICE/OUTPAT IENT VISIT, EST [facility], [address] [place] [address], [id number] , [place] tel: [phone] [facility] Back Pain (chief complaint) Pain in right hipChronic pain syndromePain in left hipAnkylosing spondylitis in spineLong term (current) use of opiate analgesicDepres sionNicotine dependenceSpond ylosis w/o myelopathy or radiculopathy, cervical regionSacroilii tis, not elsewhere classified 1 Sid [place]. [address] [facility] [address], [place], [place], [id number] , [place]. tel: [phone] Referring Provider: Lucas Buitrago, [address] [place] [address], [address]. tel:[phone] [facility], [address] [place] [address], [id number] , [place] tel: [phone] [facility] Back Pain (chief complaint) Pain in right hipChronic pain syndromePain in left hipAnkylosing spondylitis in spineLong term (current) use of opiate analgesicDepres sionNicotine dependenceSpond ylosis w/o myelopathy or radiculopathy, cervical region Nov- 1 Amandaongesa Osborne. [address] [facility] [address], [place], [place], [id number] , [place]. tel: [phone] Referring Provider: Lucas Buitrago, [address] [place] [address], [address]. tel:[phone] [facility], [address] [place] [address], [id number] , [place] tel: [phone] [facility] No Information 1 Nyongesa Osborne. [address] [facility] [address], [place], [place], [id number] , [place]. tel: [phone] OFFICE/OUTPAT IENT VISIT, [facility], [address] [place] [address], [id number] , [place] tel: [phone] [facility] Back Pain (chief complaint) Ankylosing spondylitis in spineLong term (current) use of opiate analgesicDepres sionNicotine dependenceSpond ylosis w/o myelopathy or radiculopathy, cervical regionEncounter for therapeutic drug level monitoringPain in right hipChronic pain syndromePain in left hip 1 Amandaongesa Osborne. [address] [facility] [address], [place], [place], [id number] , [place]. tel: [phone] Referring Provider: Lucas Buitrago, [address] [place] [address], [address]. tel:[phone] OFFICE VISIT, EST TELEMEDICINE [facility], [address] [place] [address], [id number] , [place] tel:[phone] [facility] Back Pain (chief complaint) Ankylosing spondylitis in spineLong term (current) use of opiate analgesicDepres sionNicotine dependencePain in right hipSpondylosis w/o myelopathy or radiculopathy, cervical regionChronic pain syndromePain in left hip Sep-3 1 Lisandro Osborne. [address] [facility] [address], [place], [place], [id number] , [place]. [phone] Referring Provider: Lucas Buitrago, [address] [place] [address], [address]. [phone] OFFICE VISIT, [facility], [address] [place] [address], [id number] , [place] tel:[phone] [facility] Back Pain (chief complaint) Ankylosing spondylitis in spineLong term (current) use of opiate analgesicDepres sionNicotine dependencePain in right hipSpondylosis w/o myelopathy or radiculopathy, cervical regionChronic pain syndrome Sep-0 2 1 Lisandro Osborne. [address] [facility] [address], [place], [place], [id number] , [place]. tel:[phone] Referring Provider: Lucas Buitrago, [address] [place] [address], [address]. tel:[phone] OFFICE VISIT, [facility], [address] [place] [address], [id number] , [place] tel:[phone] [facility] Back Pain (chief complaint) Ankylosing spondylitis in spineLong term (current) use of opiate analgesicDepres sionNicotine dependencePain in right hipSpondylosis w/o myelopathy or radiculopathy, cervical regionChronic pain syndrome Kam-2 1 Lisandro Osborne. [address] [facility] [address], [place], [place], [id number] , [place]. tel:[phone] Referring Provider: Lucas Buitrago, [address] [place] [address], [address]. [phone] OFFICE/OUTPAT IENT VISIT, [facility], [address] [place] [address], [id number] , [place] tel:[phone] [facility] Back Pain (chief complaint) Ankylosing spondylitis in spineLong term (current) use of opiate analgesicDepres sionNicotine dependencePain in right hipSpondylosis w/o myelopathy or radiculopathy, cervical regionChronic pain syndromeEncount er for screening for other disorder 1 Sid [place]. [address] [facility] [address], [place], [id number] , [place]. tel:[phone] Referring Provider: Lucas Buitrago, [address] [place] [address], [address]. tel:[phone] OFFICE/OUTPAT IENT VISIT, [facility], [address] [place] [address], [id number] , [place] tel: [phone] [facility] Back Pain (chief complaint) Ankylosing spondylitis in spineLong term (current) use of opiate analgesicDepres sionNicotine dependencePain in right hipSpondylosis w/o myelopathy or radiculopathy, cervical regionChronic pain syndrome 1 Lisandro Osborne. [address] [facility] [address] [facility] [address], [place], [place], [id number] , [place]. tel: [phone] Referring Provider: Lucas Buitrago, [address] [place] [address], [address]. tel:[phone] OFFICE/OUTPAT IENT VISIT, [facility], [address] [place] [address], [id number] , [place] tel: [phone] [facility] Back Pain (chief complaint) Ankylosing spondylitis in spineLong term (current) use of opiate analgesicDepres sionNicotine dependencePain in right hipSpondylosis w/o myelopathy or radiculopathy, cervical regionChronic pain syndrome 1 Sid [place]. [address] [facility] [address], [place], [place], [id number] , [place]. tel:[phone] Referring Provider: Lucas Buitrago, [address] [place] [address], [address]. tel:[phone] [facility], [address] [place] [address], [id number] , [place] tel: [phone] [facility] Ankylosing spondylitis in spine 1 Lisandro Osborne. [address] [facility] [address], [place], [place], [id number] , [place]. tel: [phone] Referring Provider: Lucas Buitrago, [address] [place] [address], [address]. tel:[phone] [facility], [address] [place] [address], [id number] , [place] tel: [phone] [facility] Encounter for therapeutic drug level monitoringLong term (current) use of opiate analgesic 1 Lisandro Osborne. [address] [facility] [address], [place], [place], [id number] , [place]. 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 [address] [facility] [address], [place], [place], [id number] , [place]. tel: [phone] Referring Provider: Lucas Buitrago, [address] [place] [address], [address]. tel:[phone] [facility], [address] [place] [address], [id number] , [place] [phone] [facility] No Information 1 Crow Kiran. [facility], [address] [facility] [address], [place], [address], [place]. tel:[phone] Referring Provider: Lucas Buitrago, [address] [place] [address], [address]. tel:[phone] OFFICE VISIT, EST TELEMEDICINE [facility], [address] [place] [address], [id number] , [place] tel:[phone] [facility] Pain (chief complaint) Ankylosing spondylitis in spineDepression Nicotine dependencePain in right hipSpondylosis w/o myelopathy or radiculopathy, cervical regionLong term (current) use of opiate analgesicChroni c pain syndrome 0 1 [facility] [place]. [address] [place] [address] [address], [place], [place], [id number] , [place]. tel:[phone] [facility], [address] [place] [address], [id number] , [place] tel:[phone] [facility] [place] Spondylosis w/o myelopathy or radiculopathy, cervical region 0 1 [facility]. [address] [place] [address] [address], [place], [place], [id number] , [place]. tel:[phone] Referring Provider: Lucas Buitrago, [address] [place] [address], [address]. [phone] [facility], [address] [place] [address], [id number] , [place] [phone] [facility] Spondylosis w/o myelopathy or radiculopathy, cervical region 1 Evan Reynolds. [address] [place] [address], [id number] , [place]. [phone] Referring Provider: Lucas Buitrago, [address] [place] [address], [address]. [phone] OFFICE VISIT, EST TELEMEDICINE [facility], [address] [place] [address], [id number] , [place] [phone] [facility] Pain (chief complaint) Ankylosing spondylitis in spineDepression Nicotine dependencePain in right hipSpondylosis w/o myelopathy or radiculopathy, cervical regionLong term (current) use of opiate analgesicChroni c pain syndrome 1 Lisandro Osborne. [address] [facility] [address], [place], [id number] , [place]. tel:[phone] Referring Provider: Lucas Buitrago, [address] [place] [address], [address]. tel:[phone] OFFICE VISIT, [facility], [address] [place] [address], [id number] , [place] [phone] [facility] Back Pain (chief complaint) Ankylosing spondylitis in spineDepression Nicotine dependencePain in right hipSpondylosis w/o myelopathy or radiculopathy, cervical regionLong term (current) use of opiate analgesicChroni c pain syndrome 0 Lisandro Osborne. [address] [facility] [address], [place], [place], [id number] , [place]. [phone] Referring Provider: Lucas Buitrago, [address] [place] [address], [address]. [phone] OFFICE VISIT, [facility], [address] [place] [address], [id number] , [place] tel:[phone] [facility] Back Pain (chief complaint) Ankylosing spondylitis in spineDepression Nicotine dependencePain in right hipSpondylosis w/o myelopathy or radiculopathy, cervical regionLong term (current) use of opiate analgesicChroni c pain syndrome 0 Lisandro Osborne. [address] [facility] [address], [place], [place], [id number] , [place]. [phone] Referring Provider: Lucas Buitrago, [address] [place] [address], [address]. tel:[phone] OFFICE/OUTPAT IENT VISIT, [facility], [address] [place] [address], [id number] , [place] [phone] [facility] [place] [facility] Pain (chief complaint) Ankylosing spondylitis in spineCervicalgi aDepressionNico glenda dependencePain in right hipSpondylosis w/o myelopathy or radiculopathy, cervical regionLong term (current) use of opiate analgesicChroni c pain syndrome 0 Lisandro Osborne. [address] [place] [address] [address] [facility] [address], [place], [place], [id number] , [place]. tel:[phone] Referring Provider: Lucas Buitrago, [address] [place] [address], [address]. tel:[phone] [facility], [address] [place] [address], [id number] , [place] tel:[phone] [facility] [place] Spondylosis without myelopathy or radiculopathy, cervical region 0 Lisandro Osborne. [address] [place] [address] [address] [facility] [address], [place], [place], [id number] , [place]. tel:[phone] Referring Provider: Lucas Buitrago, [address] [place] [address], [address]. tel:[phone] [facility], [address] [place] [address], [id number] , [place] tel:[phone] [facility] Spondylosis without myelopathy or radiculopathy, cervical region 0 Lisandro Osborne. [address] [place] [address] [address] [facility] [address], [place], [place], [id number] , [place]. tel:[phone] Referring Provider: Lucas Buitrago, [address] [place] [address], [address]. tel:[phone] [facility], [address] [place] [address], [id number] , [place] tel:[phone] [facility] [place] Spondylosis without myelopathy or radiculopathy, cervical region 0 Evan Reynolds. [address] [place] [address], [id number] , [place]. tel:[phone] Referring Provider: Lucas Buitrago, [address] [place] [address], [address]. tel:[phone] OFFICE/OUTPAT IENT VISIT, [facility], [address] [place] [address], [id number] , [place] tel:[phone] [facility] Back Pain (chief complaint) Ankylosing spondylitis in spineCervicalgi aDepressionNico glenda dependencePain in right hipSpondylosis w/o myelopathy or radiculopathy, cervical regionLong term (current) use of opiate analgesicChroni c pain syndrome Sep-2 - 0 Nyongesa [place]. [address] [facility] [address], [place], [place], [id number] , [place]. tel:[phone] Referring Provider: Lucas Buitrago, [address] [place] [address], [address]. [phone] OFFICE/OUTPAT IENT VISIT, [facility], [address] [place] [address], [id number] , [place] tel:[phone] [facility] Back Pain (chief complaint) Ankylosing spondylitis in spineCervicalgi aDepressionNico glenda dependencePain in right hipSpondylosis w/o myelopathy or radiculopathy, cervical regionLong term (current) use of opiate analgesicChroni c pain syndrome Sep-0 0 Nyongesa [place]. [address] [facility] [address], [place], [place], [id number] , [place]. tel:[phone] Referring Provider: Lucas Buitrago, [address] [place] [address], [address]. [phone] [facility], [address] [place] [address], [id number] , [place] [phone] [facility] [place] cervicalgia (chief complaint) Ankylosing spondylitis in spineCervicalgi a 0 Cadence Pat. [address] [place] [address], [id number] , [place]. [phone] Referring Provider: Lucas Buitrago, [address] [place] [address], [address]. [phone] OFFICE/OUTPAT IENT VISIT, [facility], [address], [place], [id number] , [place] tel:[phone] [facility] Back Pain (chief complaint) DepressionNicot ine dependencePain in right hipSpondylosis w/o myelopathy or radiculopathy, cervical regionLong term (current) use of opiate analgesicChroni c pain syndromeAnkylos ing spondylitis in spine 0 [place]. [address], [place], [place], [id number] , [place]. tel:[phone] Referring Provider: Lucas Buitrago, [address] [place] [address], [id number]. tel:[phone] Psych Dx Eval [facility], [address] [place] [address], [id number] , [place] tel:[phone] Telehealth Pain disorder with related psychological factorsMajor depressive disorder, recurrent, in partial remission 0 Fiorella Kong [place]. [address], [place], [id number] , [place]. [phone] Referring Provider: Lucas Buitrago, [address] [place] [address], [id number]. tel:[phone] OFFICE/OUTPAT IENT VISIT, [facility], [address] [place] [address], [id number] , [place] tel:[phone] [facility] Back Pain (chief complaint) Chronic pain syndromeAnkylos ing spondylitis in spineDepression Nicotine dependencePain in right hipSpondylosis w/o myelopathy or radiculopathy, cervical regionLong term (current) use of opiate analgesic 0 [place]. [address], [place], [place], [id number] , [place]. [phone] Referring Provider: Lucas Buitrago, [address] [place] [address], [id number]. tel:[phone] [facility], [address] [place] [address], [id number] , [place] [phone] [facility] [place] Spondylosis w/o myelopathy or radiculopathy, cervical region 0 [place]. [address] [address], [place], [place], [id number] , [place]. tel:[phone] OFFICE/OUTPAT IENT VISIT, [facility], [address], [place], [id number] , [place] tel:[phone] [facility] Back Pain (chief complaint) Chronic pain syndromeAnkylos ing spondylitis in spineDepression Nicotine dependencePain in right hipLong term (current) use of opiate analgesicSpondy losis w/o myelopathy or radiculopathy, cervical region 0 [place]. [address], [id number] , [place]. tel:[phone] Referring Provider: Lucas Buitrago, [address] [place], [address]. tel:[phone] OFFICE/OUTPAT IENT VISIT, [facility], [address], [place], [id number] , [place] [phone] [facility] Back Pain (chief complaint) Chronic pain syndromeAnkylos ing spondylitis in spineDepression Nicotine dependencePain in right hipEncounter for therapeutic drug level monitoringCervi calgia 0 [place]. [address] [address], [place], [place], [id number] , [place]. [phone] Referring Provider: Alvaro Clements, [facility] [address] [place], [address]. tel:[phone] Family History Family Member Type Diagnosis Age At Onset Mother Problem ankylosing spondylitis Payers Payer name Insurance type Covered republican ID Authoriza tion(s) Medicare MB [id number] [facility] [id number] Social History Type Description Quantity Date Captured Comments Sex Female Smoking Status No Information Chief Complaint And Reason For Visit No Information Reason For Referral Reason For Referral No Information Plan Of Treatment Date Type Action Status Goal Hepatitis C scre ening. Due on due Goal EMPLOYMENT RECRUITER Paperwork. Due on due Goal Review Allergy L ist. Due on due Goal HPV. Due on due Goal Order Annual PT. Due on due Goal Update Social Hi story. Due on due Goal UDT. Due on due Goal PHQ-9. Due on du e Goal AST (SGOT). Due on due Goal ALT (SGPT). Due on due Goal AZURE DEVELOPER Scanned. Due on due Goal Tobacco Use. Due on due Goal OARS. Due on due Goal Unhealthy drug u se screening. Due on due Goal Creatinine. Due on due Goal Height. Due on d ue Goal Weight. Due on d ue Goal Medication Recon ciliation. Due on due Goal Hepatitis C scre ening. Due on due Goal AZURE DEVELOPER Scanned. Due on due Goal Tobacco Use. Due on due Goal Review Allergy L ist. Due on due Goal OARS. Due on due Goal EMPLOYMENT RECRUITER Paperwork. Due on due Goal HPV. Due on due Goal AST (SGOT). Due on due Goal Unhealthy drug u [...] Recon ciliation. Due on due Goal Tobacco cessation counseling completed Goal Order Annual PT. Due on due Goal Review Allergy L ist. Due on due Goal Hepatitis C scre ening. Due on due Goal PHQ-9. Due on du e Goal Unhealthy drug u se screening. Due on due Goal EMPLOYMENT RECRUITER Paperwork. Due on due Goal Medication Recon ciliation. Due on due Goal Update Social Hi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
--- OUTSIDE RECORDS SUMMARY | 2024-04-06 09:38 | XMS_ITS | Clinical Summary ---
Author Organization [facility] Address [place], [place] [address] Care Team Providers Care General Office Assistant Name Role Phone Alvaro Clements MD Primary Care Provider [phone] Allergies Active Allergy Reactions Criticality Noted Date [...] Overview: Added automatically from request for surgery [id number] Atypical squamous cells of u ndetermined significance [...] Outcome GA Total Labor Labor/2nd/3rd Weight Sex Type Anes PTL [place] A1 A5 Name Clin Comments:System Genera gonzalo. Please review and update [...] Tetanus booster 11/28/2019 11/27/2009 COVID-19 vaccine series (2022- season) 2024 Influenza for age 9-49 04/04/2024 05/03/2009, 2002 Hepatitis C screening for age 18-79 Completed 12/04/2004, 04/04/2004 HIV for age 15-65 Completed 12/19/2008 Tdap Completed 11/27/2009 Pneumococcal series for age 6-64 Aged Out No longer eligible based on patient's age to complete this topic Procedures Procedure Name Priority Date/Time Associated Diagnosis Comments FREIGHT AND PASSENGER AGENT THIN PREP PAP DIAGNOSTIC IMAGED Routine 12/27/2014 3:49 PM CDT ASCUS favoring benign ANTI HIV 1/2 Routine 12/19/2008 10:35 AM CDT Supervision of Other Normal ANTI HCV Timed 12/04/2004 3:30 PM CDT from Last 3 Months or Most Recently Relevant to Health Maintenance Results * FREIGHT AND PASSENGER AGENT THIN PREP PAP DIAGNOSTIC IMAGED (12/27/2014 3:49 PM CDT) FREIGHT AND PASSENGER AGENT CYTOLOGY See Anatomic Pathology case 01/01/2015 4:00 PM CDT [facility] Specimen (specimen) Non-Blood / Unknown 12/27/2014 3:49 PM CDT 12/27/2014 3:50 PM CDT Ekaterina ROLON PATHOLOGY/CYTOL OGY [facility] [address] [place] [address], * ANTI HIV 1/2 (12/19/2008 10:35 AM CDT) ANTI HIV 1/2 Non-reacti ve [facility] Blood specimen (specimen) BLOOD SPECIMEN / Unknown 12/19/2008 10:35 AM CDT 12/19/2008 10:34 AM CDT Sophia Keith DO SEND OUTS [facility] INTERNAL ZIP [address] [address] * ANTI HCV (12/04/2004 3:30 PM CDT) ANTI HCV Non-reactiv e [facility] 12/04/2004 3:30 PM CDT 12/04/2004 10:03 PM CDT Narrative [facility] - 12/06/2004 1:45 PM CDT Testing Performed By [place], [place] Cristel Carranza MD SEND OUTS [facility] [address] [place] [address] from Last 3 Months or Most Recently Relevant to Health Maintenance Advance Directives * Full Code (Latest Code Status on File) Date Activated Date Inactivated Comments 06/25/2017 8:56 AM 06/25/2017 1:38 PM * Full Code Date Activated Date Inactivated Comments 06/15/2012 11:45 AM 06/17/2012 3:25 PM * Full Code Date Activated Date Inactivated Comments 02/19/2009 6:03 PM 02/19/2009 11:52 PM Care Teams General Office Assistant Relationship Specialty Start Date End Date Alvaro Clements MD [address] [place] [address] PCP - General Family Practice 01/23/18
--- OUTSIDE RECORDS SUMMARY | 2024-04-06 09:38 | XMS_ITS | Clinical Summary ---
Author Organization [facility] Address [address] [place] [address] Care Team Providers Care Electrical Engineering Drafting Officer Name Role Phone Needs Pcp, Assignment Primary Care Provider [phone] Source Comments You are receiving this document as you are listed as the primary care provider,follow-up provider, or the patient has been referred to you for consultation.This is in compliance with the Medicare and[facility] Incentive Program,which states Providers who transition their patient to another setting of careor provider of care or refers their patient to another provider of care shouldprovide summary care record for each transition of care or referral. [employer] Allergies Active Allergy Reactions Criticality Noted Date [...] (ASCUS) on Papanicolaou smear of cervix 01/02/2014 Overview (12/13/2021): HPV negative; 01/2014-colp DAR 1 Depressive disorder [...] 1986 Hep C Screening (Preventive Services) 1986 MTM Covered 1986 Asthma ACT 1990 Pneumococcal (1 - PCV) 1992 HIV Screening (Preventive Services) 2002 Adult Preventive Visit 2004 HepB (1) 2005 DTaP/Tdap/Td (7 - Tdap) 11/28/2019 11/28/19 10, 10/20/1992, 03/15/1988, Additional history exists COVID-19 Vaccine ( season) 2024 Influenza (#1) 2024 05/03/2009, 06/03/2003 Zoster/Shingles (1 of 2) 2036 [...] age to complete this topic Care Teams Electrical Engineering Drafting Officer Relationship Specialty Start Date End Date Needs Pcp, [place] [address] PCP - General 09/12/22
== END 2024-04-06 09:18 | disposition home or self-care (01) ==
PROVIDERS: PCP Internal Medicine; Visit Provider Internal Medicine
DX: R63.4 Abnormal weight loss (principal)
CPT/HCPCS: 80053; 84443

== ENCOUNTER 2024-04-27 09:55 | Outpatient (CLI) | payer MEDICARE, MEDICAID, SELFPAY ==
--- OUTSIDE RECORDS SUMMARY | 2024-05-01 07:28 | XMS_ITS | Continuity of Care Document ---
Author Organization [facility] Address [address] [place] [phone] Phone Care Team Providers Care Pairer Odds Name Role Phone [facility] Unavailable Unava ilable Procedures Procedure Date Facet Jt Inj Lumbar RIGHT Facet Jt Inj Lumbar LEFT Facet Inj Lumbar 2nd Level RIGHT 2023 Facet Inj Lumbar 2nd Level LEFT 024 Inj for sacroiliac jt anesth Advance Directives Directive Yes / No Effective Date File Name No Information Encounters Encounter Description Practice Location Reason(s) For Visit Diagnoses Date Provider Providers Copied on Encounter [facility], [address] [place] [address], [id number], tel:[phone] [place] [address] No Information [facility]. [address] [place] [address], [id number], [place]. tel:[phone] Referring Provider: Michele Lees, [address] [facility] [place], [place], [address] . tel:[phone] [facility], [address] [place] [address], [id number], tel:[phone] [place] [address] No Information [facility]. [address] [place] [address], [id number], [place]. tel:[phone] Referring Provider: [facility] [address] [facility] [address], [place], [address]. tel:[phone] Family History Family Member Type Diagnosis Age At Onset No Information Payers Payer name Insurance type Covered republican ID Authorsondraa sintia(s) Medicare MB [id number] [facility] [id number] Social History Type Description Quantity Date Captured [...]
--- OUTSIDE RECORDS SUMMARY | 2024-05-01 07:28 | XMS_ITS | Clinical Summary ---
Author Organization [facility] Address [address] [place] [address] Care Team Providers Care Picture Frames Inspector Name Role Phone Needs Pcp, Assignment Primary Care Provider [phone] Source Comments You are receiving this document as you are listed as the primary care provider,follow-up provider, or the patient has been referred to you for consultation.This is in compliance with the Medicare and[facility] E[facility] Incentive Program,which states Providers who transition their patient to another setting of careor provider of care or refers their patient to another provider of care shouldprovide summary care record for each transition of care or referral. [facility] Allergies Active Allergy Reactions Criticality Noted Date [...] age to complete this topic Care Teams Picture Frames Inspector Relationship Specialty Start Date End [place] [address] PCP - General 09/12/22
--- OUTSIDE RECORDS SUMMARY | 2024-05-01 07:28 | XMS_ITS | Continuity of Care Document ---
Author Organization [facility] Address [address] [address] [place] [address] Phone Care Team Providers Care Neck Band Maker Name Role Phone No Information Unavailable Unavailable Advance Directives Directive Yes / No Effective Date File Name No Information Encounters Encounter Description Practice Location Reason(s) For Visit Diagnoses Date Provider Providers Copied on Encounter [facility], [address] [address], [place], [place], [id number], [place] tel:[phone] No Information No Information Family History Family Member Type Diagnosis Age At Onset No Information Payers Payer name Insurance type Covered libertarian ID Authoriza tion(s) No Information Social History [...]
--- OUTSIDE RECORDS SUMMARY | 2024-05-01 07:29 | XMS_ITS | Clinical Summary ---
Author Organization [facility] Address [place], [place] [address] Care Team Providers Care Laborer Beam House Name Role Phone Alvaro Clements MD Primary Care Provider [phone] Allergies Active Allergy Reactions Criticality Noted Date [...] Noted Date Diagnosed Date Levator spasm 06/11/2017 Overview (06/11/2017): Added automatically from request for surgery [id number] Atypical squamous cells of u ndetermined significance (ASCUS) on Papanicolaou smear of cervix 01/02/2014 Overview (01/09/2015): HPV negative; 01/2014-colp DAR 1 Syncope and collapse 04/09/2011 Supervision of normal first 04/06/2009 Abdominal pain, left lower quadrant 02/19/2009 Overview (02/19/2009): Endometriosis, site unspecified 07/25/2006 ASTHMA, exercise induced [...] Tetanus booster 11/28/2019 11/27/2009 COVID-19 vaccine series (2023- season) 2024 Influenza for age 9-49 04/04/2024 05/03/2009, 2002 Hepatitis C screening for age 18-79 Completed 12/04/2004, 04/04/2004 HIV for age 15-65 Completed 12/19/2008 Tdap Completed 11/27/2009 Pneumococcal series for age 6-64 Aged Out No longer eligible based on patient's age to complete this topic Procedures Procedure Name Priority Date/Time Associated Diagnosis Comments RIDING COACH THIN PREP PAP DIAGNOSTIC IMAGED Routine 12/27/2014 3:49 PM CDT ASCUS favoring benign ANTI HIV 1/2 Routine 12/19/2008 10:35 AM CDT Supervision of Other Normal ANTI HCV Timed 12/04/2004 3:30 PM CDT from Last 3 Months or Most Recently Relevant to Health Maintenance Results * RIDING COACH THIN PREP PAP DIAGNOSTIC IMAGED (12/27/2014 3:49 PM CDT) RIDING COACH CYTOLOGY See Anatomic Pathology case 01/01/2015 4:00 PM CDT [facility] Specimen (specimen) Non-Blood / Unknown 12/27/2014 3:49 PM CDT 12/27/2014 3:50 PM CDT Ekaterina ROLON PATHOLOGY/CYTOL OGY [facility] [address] [place] [address], * ANTI HIV 1/2 (12/19/2008 10:35 AM CDT) ANTI HIV 1/2 Non-reacti ve [facility] Blood specimen (specimen) BLOOD SPECIMEN / Unknown 12/19/2008 10:35 AM CDT 12/19/2008 10:34 AM CDT Sophia Keith DO SEND OUTS [facility] [place]NAL ZIP [address] [address] * ANTI HCV (12/04/2004 3:30 PM CDT) Pathologist [facility] ANTI HCV Non-reactiv e [facility] 12/04/2004 3:30 PM CDT 12/04/2004 10:03 PM CDT Narrative [facility] - 12/06/2004 1:45 PM CDT Testing Performed By [place], [place] Cristel Carranza MD [facility] [address] [address] from Last 3 Months or Most Recently Relevant to Health Maintenance Advance Directives * Full Code (Latest Code Status on File) Date Activated Date Inactivated Comments 06/25/2017 8:56 AM 06/25/2017 1:38 PM * Full Code Date Activated Date Inactivated Comments 06/15/2012 11:45 AM 06/17/2012 3:25 PM * Full Code Date Activated Date Inactivated Comments 02/19/2009 6:03 PM 02/19/2009 11:52 PM Care Teams Laborer Beam House Relationship Specialty Start Date End Date Alvaro Clements MD [address] [place] [address] PCP - General Family Practice 01/23/18
== END 2024-04-27 09:56 | disposition home or self-care (01) ==
LOC: NFLDREF 05-01 07:24
PROVIDERS: PCP Internal Medicine; Referring Provider Internal Medicine; Visit Provider Registered Nurse
DX: R30.0 Dysuria (principal)
CPT/HCPCS: 87086

== ENCOUNTER 2025-02-07 11:11 | Emergency (ER) | payer MEDICAID, SELFPAY ==
--- OUTSIDE RECORDS SUMMARY | 2025-02-07 11:13 | XMS_ITS | Clinical Summary ---
[facility] Address [address] [place] [address] Care Team Providers Care Financial Writer Name Role Phone Needs Pcp, Assignment Primary Care Provider [phone] Source Comments You are receiving this document as you are listed as the primary care provider,follow-up provider, or the patient has been referred to you for consultation.This is in compliance with the Medicare and[facility] E[facility] Incentive Program,which states Providers who transition their patient to another setting of careor provider of care or refers their patient to another provider of care shouldprovide summary care record for each transition of care or referral. [employer] Allergies Active Allergy Reactions Criticality Noted Date Comments Penicillins Rash 04/11/2016 Medications adalimumab (HUMIRA) 40 MG/0.4ML prefilled syringe Every 14 Days Active PROAIR HFA 108 (90 Base) MCG/ACT inhaler 2 Puffs every 4 hours as needed. 09/10/2021 Active amphetamine-dex troamphetamine (ADDERALL) 5 MG tablet Take 1 Tablet [...] 02/02/2001 Major depressive disorder, recurrent episode Immunizations Immunization Administration Dates Next Due DTP 10/20/1992, 8,05/01/1987,03/03,1986 [...] = 0.6 oz pur e alcohol) socially Comments Unknown Sex and Gender Information Value Date Recorded Sex Assigned at Not on file Legal Sex Female 2:45 PM CDT Gender Identity Not on file Sexual Orientation [...] C Screening (Preventive Services) 1986 Asthma ACT (score of 20 or higher) 1990 HIV Screening (Preventive Services) 2002 Adult Preventive Visit 2004 HepB Vaccine (1) 2005 Pneumococcal Vaccine (1 of 2 - PCV) 2005 DTaP/Tdap/Td Vaccine (7 - Tdap) 11/28/2019 11/27/2009, 10/20/1992, 03/15/1988, Additional history exists COVID-19 Vaccine ( season) 2024 Influenza Vaccine (#1) 2025 05/03/2009, 2002 Zoster/Shingles Vaccine (1 of 2) 2036 Hib Vaccine Completed 10/28/1988 IPV (Polio) Vaccine Completed 10/20/1992, 03/15/1988, 03/03/1987, Additional history exists MCV4 Vaccine Aged Out 04/15/2006 No longer eligi ble based on patient's age to complete this topic HPV Vaccine Aged Out No longer eligi ble based on patient's age to complete this topic HepA Vaccine Aged Out No longer eligi ble based on patient's age to complete this topic Meningococcal B Vaccine Aged Out No l onger eligible based on patient's age to complete this topic Insurance [facility] Care Teams Financial Writer Relationship Specialty Start Date End Date Needs Pcp, Assignment [place], [place] [id number] PCP - General 09/12/22
[2025-02-07 11:48] VITALS: BP 109/76; PULSE 72; RESP 16; TEMP 36.6; O2SAT 99; BMI 21.9
--- NOTE | 2025-02-07 13:34 | CRLHL7_ITS ---
For Patients: As a result of the Century Cures Act, medical imaging exams and procedure reports are released immediately into your electronic medical record. You may view this report before your referring provider. If you have questions, please contact your health care provider. INDICATION: NUMBNESS RT ARM, RT JAW TECHNIQUE: CT of the head was performed without IV contrast. COMPARISON: 12/26/2020. FINDINGS: Parenchyma: No acute hemorrhage, infarction, or mass. Ventricles and extra-axial spaces: Appropriate for age. Visualized paranasal sinuses: Moderate bilateral maxillary sinus mucosal retention cysts versus polyps. Mastoid air cells: Clear. Bones: No focal abnormality. Additional comment: None. IMPRESSION: No acute intracranial abnormality. Please note that all CT scans at this facility use dose modulation, iterative reconstruction, and/or weight-based dosing when appropriate to reduce radiation dose to as low as reasonably achievable. Dictated by Chalo Alvarez MD @ 02/07/2025 3:03:16 PM (Electronically Signed)
--- NOTE | 2025-02-07 13:34 | CRLHL7_ITS ---
For Patients: As a result of the Century Cures Act, medical imaging exams and procedure reports are released immediately into your electronic medical record. You may view this report before your referring provider. If you have questions, please contact your health care provider. DATE: 02/07/2025 CLINICAL HISTORY: Patient with focal neurological deficits. TECHNIQUE: Standard helical CT image acquisition of the neck up to the skull base after bolus intravenous contrast enhancement. 2D and 3D MIP images for post-processing were performed and interpreted on an independent workstation and 3D images were permanently archived. COMPARISON: CT same day. FINDINGS: The origins of the great vessels from the aortic arch are patent. The origin of the right vertebral artery is patent. The origin of the left vertebral artery is patent. The common carotid arteries are patent. There is no stenosis at the origin of the right internal carotid artery. There is no stenosis at the origin of the left internal carotid artery. The rest of the cervical segments of the internal carotid arteries are patent up to the skull base. The vertebral arteries are codominant. The cervical segments of the vertebral arteries are patent up to the skull base. The visualized lung apices are unremarkable. The thyroid gland demonstrates a 1.5cm hypodense nodule in its right lobe. The soft tissues of the neck are unremarkable. There are degenerative changes in the cervical spine. IMPRESSION: 1. Patent cervical vasculature. 2. 1.5cm hypodense right thyroid nodule. Further evaluation with ultrasound is recommended. Please note that all CT scans at this facility use dose modulation, iterative reconstruction, and/or weight-based dosing when appropriate to reduce radiation dose to as low as reasonably achievable. Dictated by Dorita Cunningham MD @ 02/07/2025 6:26:47 PM (Electronically Signed)
--- NOTE | 2025-02-07 13:34 | CRLHL7_ITS ---
For Patients: As a result of the Century Cures Act, medical imaging exams and procedure reports are released immediately into your electronic medical record. You may view this report before your referring provider. If you have questions, please contact your health care provider. DATE: 02/07/2025 CLINICAL HISTORY: Patient with focal neurological deficits. TECHNIQUE: Standard helical CT image acquisition through the intracranial circulation following intravenous administration of contrast material with bolus tracking. 2D and 3D MIP images for post-processing were performed and interpreted on an independent workstation and 3D images were permanently archived. COMPARISON: CT same day. FINDINGS: There is no cerebral aneurysm or large vessel occlusion. The right internal carotid artery is normal. The right middle cerebral artery and its branches are normal. The right anterior cerebral artery and its branches are normal. The left internal carotid artery is normal. The left middle cerebral artery and its branches are normal. The left anterior cerebral artery and its branches are normal. The anterior communicating artery is well visualized and appears normal. The right vertebral artery and PICA are normal. The left vertebral artery and PICA are normal. The vertebral arteries are codominant. The basilar artery is patent and appears normal. The right posterior cerebral artery is normal. The left posterior cerebral artery is normal. The visualized venous structures are patent. IMPRESSION: Patent proximal intracranial vasculature without intracranial aneurysms. Please note that all CT scans at this facility use dose modulation, iterative reconstruction, and/or weight-based dosing when appropriate to reduce radiation dose to as low as reasonably achievable. Dictated by Dorita Cunningham MD @ 02/07/2025 6:28:52 PM (Electronically Signed)
--- NOTE | 2025-02-07 13:58 | ED.GENADULT ---
HPI - General Adult General Chief complaint: Skin/Abscess/Foreign Body Stated complaint: Numbness/discoloration in face, hands Time Seen by Provider: 02/07/25 13:18 Source: patient Mode of arrival: ambulatory Limitations: no limitations History of Present Illness HPI narrative: 39-year-old female coming in today with multiple concerns. Patient is concerned that the ring finger of the left hand is swollen and discolored. She states that she pinched that finger approximately 2 days ago and noticed the discoloration just yesterday. She also is concerned about neck pain. She states that her back and neck locked up yesterday to the point where she started crying could move. This discomfort continues today although it is not quite as intense. She then noticed that approximately 4 hours ago she developed numbness of the right face. In the last 3 hours that numbness has moved down into the right arm and torso. She denies tripping and falling. She denies 1 extremity not working. She denies headache. She denies trauma to the head. She denies any rashes. Related Data Previous Rx's ?Medication ?Instructions ?Recorded albuterol sulfate 90 mcg/actuation 2 inh inhalation QID PRN 02/11/24 aerosol inhaler bronchospasm #8.5 grams bupropion HCl (smoking deter) 150 150 mg PO BID 4 weeks #180 tabs 02/11/24 mg tablet,12 hr sustained-release(smoking deterrent) aripiprazole 10 mg tablet (Abilify) 10 mg PO QDAY #90 tabs 04/06/24 tramadol 50 mg tablet 50 mg PO TID PRN pain #90 tabs 08/09/24 buspirone 10 mg tablet 10 mg PO BID #180 tabs 09/14/24 ondansetron 4 mg disintegrating 4 mg PO TID #10 tabs 11/11/24 tablet trazodone 50 mg tablet 100 mg (2 x 50 mg) PO .Bedtime #90 11/23/24 tabs dextroamphetamine sulfate 20 mg 20 mg PO BID #60 tabs 01/24/25 tablet alprazolam 0.5 mg tablet 0.5 mg PO BID PRN anxiety #30 tabs 01/29/25 Allergies Allergy/AdvReac Type Severity Reaction Status Date / Time Penicillins Allergy Mild Hives/rash Verified 02/07/25 14:38 Review of Systems Status of ROS: Reports: 10 or more systems reviewed and unremarkable except as noted in History and below PFSH PFS Medical History Vomiting ?R11.10 - Vomiting, unspecified (ICD-10) Weight loss ?R63.4 - Abnormal weight loss (ICD-10) Tobacco use ?Z72.0 - Tobacco use (ICD-10) Suicidal ideation ?R45.851 - Suicidal ideations (ICD-10) History of seizure disorder ?Z86.69 - Personal history of other diseases of the nervous system and sense organs (ICD-10) History of migraine ?Z86.69 - Personal history of other diseases of the nervous system and sense organs (ICD-10) Depression with suicidal ideation ?F32.A - Depression, unspecified (ICD-10) ?R45.851 - Suicidal ideations (ICD-10) Surgical History History of hip surgery (07/2019) ?Z98.890 - Other specified postprocedural states (ICD-10) Status post surgical removal of both fallopian tubes (2014) ?Z90.79 - Acquired absence of other genital organ(s) (ICD-10) Status post laparoscopic hysterectomy (2014) ?Z90.710 - Acquired absence of both cervix and uterus (ICD-10) History of section (03/01/10) ?Z98.891 - History of uterine scar from previous surgery (ICD-10) Family History Other Ankylosing spondylitis Social History Narrative: Nicotine dependence Does not have regular exercise regimen Medical cannabis use Single, unemployed, 1 child Social drinker, 2 drinks/week What is your current living situation?: I presently have a place to live Problems where you live: no known problems In the past 12 months, utilities in danger of being shut off: no In past 12 months, lack of transportation kept you from medical appts, meetings, work, or getting things needed for daily living: no In the past 12 mos, have been you worried that your food would run out before you had money to buy more?: sometimes true In the past 12 mos, the food you bought just didn't last and you didn't have money to buy more?: sometimes true Smoking Status: Current every day smoker What tobacco products do you use: cigarettes Smoking packs per day: 0.75 Smoking cigarettes per day: 15.0 Do you use any of these nicotine containing products: None Second hand tobacco smoke exposure: No How often do you have a drink containing alcohol: monthly or less AUDIT-C Alcohol total score: 1 Non-prescribed substance use: marijuana (any form) How often does anyone, including family, friends and others, physically hurt you: never How often does anyone, including family, friends and others, insult or talk down to you: rarely How often does anyone, including family, friends and others, threaten you with harm: never How often does anyone, including family, friends and others, scream or curse at you: rarely Are you currently sexually active: Yes What kind of protection do you use against STDs: none Are you using contraception or practicing any form of control: No service: No Health Related Social Needs: food insecurity (Z59.41) and Other personal risk factors, not elsewhere classified (Z91.89) Exam Narrative: Exam Narrative: Well-nourished well-developed patient, tearful. Alert and oriented x3. Answers questions appropriately. Patient does not appear ill or toxic. She appears disheveled. HEENT: Normocephalic atraumatic. Pupils are equally round reactive to light. Extraocular muscles are intact. Conjunctivae are moist without any icterus noted. Moist mucous membranes. Posterior pharynx is normal. Neck is soft without any lymphadenopathy or thyromegaly. No masses are appreciated. She has tenderness to the paraspinal musculature of the neck on the right. No tenderness over the cervical spine. Cardiovascular: Heart is regular rate and rhythm S1 and S2 are present without any murmurs. Lungs: Clear to auscultation bilaterally no wheezes rhonchi or rales are appreciated. Patient takes deep breaths without any discomfort. Abdomen: Soft and nontender nondistended with normal bowel sounds. Extremities: Bilateral lower extremities are without edema. She has mild bruising and swelling at the palmar surface of the base of the ring finger. Small pinch trip. She has normal capillary refill. Finger is vascularly and neurologically intact. Skin: Well perfused without any obvious rashes. Multiple tattoos. Difficult to assess strength of the extremities as effort is very poor. Patient gives up against resistance of the upper extremities bilaterally within seconds and then starts crying. She gives up against resistance of the bilateral lower extremities stating that both lower extremities feel very heavy, however the right feels heavier than the left. She cannot however either lower extremity above the table for greater than a few seconds. Reflexes are 2+ and symmetric at the knees. Cranial nerves 3-12 are normal. [id number] is normal. [id number] is normal. There is no nystagmus either horizontally or vertically. Const: Vital Signs, click to edit/add: Vital Signs - 24 hr 02/07/25 11:48 02/07/25 14:10 Temperature 97.8 F Pulse Rate [Pulse Oximeter] 72 59 L Respiratory Rate 16 16 Blood Pressure [Ri ght Upper Arm] 109/76 99/67 Pulse Oximetry 99 98 Oxygen Delivery Me thod Room Air Room Air Course Course ED Course: 39-year-old female presenting with multiple concerns. I do believe that there is a psychiatric overlay to her symptoms. However given her subjective concern of numbness on 1 side of the face and upper extremity and the inability to do a thorough neurological exam given the patient's inability to fully participate, I do think that we need to rule out evidence of intracranial vascular compromise or vertebral artery dissection, so patient will proceed to head and neck CTA. I do think the likelihood of this is very low however not impossible. Numbness could certainly also be due to neck pain. Given the amount of discomfort she is having of her neck we also did proceed with IM Toradol. This did help her discomfort Head CT was unremarkable. Head and neck CTA unremarkable. Despite the explanation that the discoloration is normal and expected after pinching and that this is bruising that is normal and expected, patient is very upset that I am ?not doing anything for her finger?. Vital Signs Vital signs: Initial Vital Signs Temperature 97.8 F 02/07/25 11:48 Temperature Source Temporal Artery Scan 02/07/25 11:48 Pulse Rate 72 02/07/25 11:48 Respiratory Rate 16 02/07/25 11:48 Blood Pressure 109/76 02/07/25 11:48 Blood Pressure Mean 87 02/07/25 11:48 Blood Pressure Position Sitting 02/07/25 11:48 Pulse Oximetry 99 02/07/25 11:48 Oxygen Delivery Method Room Air 02/07/25 11:48 Vital Signs Temperature 97.8 F 02/07/25 11:48 Pulse Rate 72 02/07/25 11:48 Respiratory Rate 16 02/07/25 11:48 Blood Pressure 109/76 02/07/25 11:48 Pulse Oximetry 99 02/07/25 11:48 Oxygen Delivery Method Room Air 02/07/25 11:48 Temperature 97.8 F 02/07/25 11:48 Pulse Rate 59 L 02/07/25 14:10 Respiratory Rate 16 02/07/25 14:10 Blood Pressure 99/67 02/07/25 14:10 Pulse Oximetry 98 02/07/25 14:10 Oxygen Delivery Method Room Air 02/07/25 14:10 Medications Administered Medications: Discontinued Medications Generic Name Dose Route Start Last Admin Trade Name Freq PRN Reason Stop Dose Admin Ketorolac Tromethamine 60 mg 02/07/25 13:45 02/07/25 14:03 Ketorolac 30 Mg/Ml Inj IM 02/07/25 13:46 60 mg ONCE ONE Administration Medical Decision Making MDM Narrative Medical decision making narrative: 39-year-old female presenting with facial numbness. No evidence of stroke on imaging. Differential diagnoses includes anxiety, referred neck discomfort, early Mendoza's palsy were shingles. Follow-up with primary care as needed. Pinched finger with bruising. Will heal with time. Imaging Data CT scan - head: Attestation: I have reviewed the pertinent imaging results. Radiologist's impression: TECHNIQUE: CT of the head was performed without IV contrast. COMPARISON: 12/26/2020. FINDINGS: Parenchyma: No acute hemorrhage, infarction, or mass. Ventricles and extra-axial spaces: Appropriate for age. Visualized paranasal sinuses: Moderate bilateral maxillary sinus mucosal retention cysts versus polyps. Mastoid air cells: Clear. Bones: No focal abnormality. Additional comment: None. IMPRESSION: No acute intracranial abnormality. CT angio head: Attestation: I have reviewed the pertinent imaging results. Radiologist's impression: INTRACRANIAL ANGIOGRAM: Anterior circulation: No flow-limiting stenosis or aneurysm. Posterior circulation: No flow-limiting stenosis or aneurysm. Dural venous sinuses: Patent. Additional comment: None. EXTRACRANIAL ANGIOGRAM: Proximal great vessels: No flow-limiting stenosis or dissection. Cervical vessels: No flow-limiting stenosis or dissection. Additional comment: None. NECK: Soft tissues: 0.9 centimeter hypoattenuating right thyroid nodule (5/186). Bones: Straightening of the normal cervical lordosis. Lung apices: Clear. Additional comment: Spinal stimulator lead terminates at the level of the upper cervical spine. Impression: No flow-limiting stenosis, occlusion or aneurysm in the intracranial and extracranial circulations. CT angio neck: Attestation: I have reviewed the pertinent imaging results. Radiologist's impression: NTRACRANIAL ANGIOGRAM: Anterior circulation: No flow-limiting stenosis or aneurysm. Posterior circulation: No flow-limiting stenosis or aneurysm. Dural venous sinuses: Patent. Additional comment: None. EXTRACRANIAL ANGIOGRAM: Proximal great vessels: No flow-limiting stenosis or dissection. Cervical vessels: No flow-limiting stenosis or dissection. Additional comment: None. NECK: Soft tissues: 0.9 centimeter hypoattenuating right thyroid nodule (5/186). Bones: Straightening of the normal cervical lordosis. Lung apices: Clear. Additional comment: Spinal stimulator lead terminates at the level of the upper cervical spine. Impression: No flow-limiting stenosis, occlusion or aneurysm in the intracranial and extracranial circulations. Discharge Plan Discharge Clinical Impression: Facial numbness, Neck pain, Superficial bruising of finger Patient Disposition: Home, Self-Care Condition: Stable Additional Instructions: No evidence of stroke causing your facial numbness. This can be caused by the pain coming from your neck. I do recommend that you follow-up with your primary care provider this week for a recheck. Finger will heal with time. This is expected and normal normal bruising after a pinching accident. Prescriptions: No Action ondansetron 4 mg tablet,disintegrating 4 mg PO TID Qty: 10 0RF bupropion HCl (smoking deter) 150 mg tablet extended release 12 hr 150 mg PO BID 28 Days Qty: 180 2RF albuterol sulfate 90 mcg/actuation HFA aerosol inhaler 2 inh inhalation QID PRN (Reason: bronchospasm) Qty: 8.5 2RF aripiprazole [Abilify] 10 mg tablet 10 mg PO QDAY Qty: 90 3RF tramadol 50 mg tablet 50 mg PO TID PRN (Reason: pain) Qty: 90 2RF buspirone 10 mg tablet 10 mg PO BID Qty: 180 3RF trazodone 50 mg tablet 100 mg PO .Bedtime Qty: 90 3RF dextroamphetamine sulfate 20 mg tablet 20 mg PO BID Qty: 60 0RF Rx Instructions: administer doses at least 4-6 hours apart alprazolam 0.5 mg tablet 0.5 mg PO BID PRN (Reason: anxiety) Qty: 30 0RF Follow Up/Referrals: Manolo Hoffman MD [Primary Care Provider, Internal Medicine] [facility] Alone [facility]
[2025-02-07 14:10] VITALS: BP 99/67; PULSE 59; RESP 16; O2SAT 98
== END 2025-02-07 16:10 | disposition home or self-care (01) ==
PROVIDERS: Emergency Provider Family Medicine; PCP Internal Medicine
DX: M54.2 Cervicalgia (principal); S60.042A Contusion of left ring finger without damage to nail, initial encounter; R20.0 Anesthesia of skin
CPT/HCPCS: 70450; 70496; 70498; 81025; 96372; 99284; J1885; Q9967

== ENCOUNTER 2025-03-15 09:49 | Outpatient (CLI) | payer MEDICARE, MEDICAID, SELFPAY ==
[2025-03-15 10:06] LABS: Trichomonas No Trichomonas Seen (None Seen)
[2025-03-15 11:40] LABS: Bacterial Vaginosis* POSITIVE (Negative); Candida glab/krus NOT DETECTED (No Detected)
[2025-03-15 12:12] LABS: Chlamydia DNA Amplified* NOT DETECTED (No Detected); GC DNA Amplified* NOT DETECTED (No Detected)
[2025-03-18 17:51] LABS: HSV 1 Subtype by PCR Not Detected; HSV 2 Subtype by PCR Detected; Herpes Simplex Subtype Source Tissue
== END 2025-03-15 09:50 | disposition home or self-care (01) ==
PROVIDERS: PCP Internal Medicine; Visit Provider Obstetrics & Gynecology
DX: N89.8 Other specified noninflammatory disorders of vagina (principal); N90.89 Other specified noninflammatory disorders of vulva and perineum
CPT/HCPCS: 81513; 87210; 87481; 87491; 87529; 87591; 87661

== ENCOUNTER 2025-03-29 13:50 | Outpatient (CLI) | payer MEDICARE, MEDICAID, SELFPAY | END 2025-03-29 13:51 | disposition home or self-care (01) | PROVIDERS: PCP Internal Medicine; Visit Provider Obstetrics & Gynecology | DX: A60.00 Herpesviral infection of urogenital system, unspecified (principal); Z11.3 Encounter for screening for infections with a predominantly sexual mode of transmission; Z11.4 Encounter for screening for human immunodeficiency virus [HIV]; Z11.59 Encounter for screening for other viral diseases | CPT/HCPCS: 80053; 86592; 86703; 86706; 86803; 87340 ==

== ENCOUNTER 2025-05-22 08:05 | Emergency (ER) | payer MEDICARE, MEDICAID, SELFPAY ==
--- OUTSIDE RECORDS SUMMARY | 2003-07-26 07:00 | XMS_ITS | Continuity of Care Document ---
Author Organization [facility] Address [address] [address] [place] [address] Phone Care Team Providers Care Level Vial Inspector And Tester Name Role Phone No Information Unavailable Unavailable Advance Directives Directive Yes / No Effective Date File Name No Information Encounters Encounter Description Practice Location Reason(s) For Visit Diagnoses Date Provider Providers Copied on Encounter [facility], [address] [address], [place], [place], [id number], [place] tel:[phone] No Information No Information Family History Family Member Type Diagnosis Age At Onset No Information Payers Payer name Insurance type Covered constitution party ID Authoriza tion(s) No Information Social History Type Description Quantity Date Captured Comments Sex Female Smoking Status No Information Chief Complaint And Reason For Visit No Information Reason For Referral Reason For Referral No Information History Of Present Illness Encounter Date Complaint History Of Prese nt Illness No Information Functional Status Date Functional Assessmen t No Information Instructions Date Instruction Additional Infor mation No Information Assessments Type Assessment Date No Information Patient Care Teams Name Effective Dates (start - stop) Status Members No Information
--- OUTSIDE RECORDS SUMMARY | 2003-07-26 07:00 | XMS_ITS | Continuity of Care Document ---
Author Organization [facility] Address [address] [address] [place] [address] Phone Care Team Providers Care Plant Senior Manager Name Role Phone No Information Unavailable Unavailable Advance Directives Directive Yes / No Effective Date File Name No Information Encounters Encounter Description Practice Location Reason(s) For Visit Diagnoses Date Provider Providers Copied on Encounter [facility], [address] [address], [place], [place], [id number], [place] tel:[phone] No Information No Information Family History Family Member Type Diagnosis Age At Onset No Information Payers Payer name Insurance type Covered republican ID Authoriza tion(s) No Information Social History [...]
--- OUTSIDE RECORDS SUMMARY | 2020-08-28 02:00 | XMS_ITS | Continuity of Care Document ---
Author Organization [facility] Address [address] [place] [address] Care Team Providers Care Insights Strategist Name Role Phone [facility] Unavailable Unav ailable Procedures Procedure Date IMPLANT NEUROELECTRODES IMPLANT NEUROELECTRODES INSRT/REDO SPINE N GENERATOR Implt neurostim elctr each Imp neurosti pls gn any type IMPLANT NEUROELECTRODES IMPLANT NEUROELECTRODES IMPLANT NEUROELECTRODES Implt neurostim elctr each FLUOROGUIDE FOR SPINE INJECT Advance Directives Directive Yes / No Effective Date File Name No Information Encounters Encounter Description Practice Location Reason(s) For Visit Diagnoses Date Provider Providers Copied on Encounter [facility], [address], [place], [id number], [facility] [place] No Information [facility]. [address] [place], [place], [id number], [place]. tel:[phone] Referring Provider: Gail Gordon, [address] [place], [address]. tel:[phone] [facility], [address], [place], [id number], [facility] [place] No Information [facility]. [address] [facility] [place], [place], [id number], [place]. tel:[phone] Referring Provider: Gail Gordon, [address] [place], [address]. tel:[phone] Family History Family Member Type Diagnosis Age At Onset No Information Payers Payer name Insurance type Covered democrat ID Authoriza tion(s) No Information Social History [...]
--- OUTSIDE RECORDS SUMMARY | 2020-08-28 02:00 | XMS_ITS | Continuity of Care Document ---
Author Organization [facility] Address [address] [place] [address] Care Team Providers Care Printed Products Assembler Name Role Phone [facility] Unavailable Unav ailable Procedures Procedure Date IMPLANT [...] Diagnoses Date Provider Providers Copied on Encounter [facility], [address] [place], [place], [id number], [facility] [place] No Information [facility]. [address] [place], [place], [id number], [place]. tel:[phone] Referring Provider: Gail Gordon, [address] [place], [address]. tel:[phone] [facility], [address] [place], [place], [id number], [facility] [place] No Information [facility]. [address] [facility] [place], [place], [id number], [place]. tel:[phone] Referring Provider: Gail Gordon, [address] [place], [address]. tel:[phone] Family History Family Member Type Diagnosis Age At Onset No Information Payers Payer name Insurance type Covered green party ID Authoriza tion(s) No Information Social [...]
--- OUTSIDE RECORDS SUMMARY | 2025-05-16 04:45 | XMS_ITS | Continuity of Care Document ---
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 Name Role Phone [facility] Unavailable Unava ilable Procedures Procedure Date Facet Inj Lumbar Facet Inj Lumbar Facet Inj Lumbar 2nd Lvl Facet Inj Lumbar 2nd Lvl Facet Jt Inj Lumbar RIGHT Facet Jt Inj Lumbar LEFT Facet Inj Lumbar 2nd Level RIGHT 2023 Facet Inj Lumbar 2nd Level LEFT 024 Inj for sacroiliac jt anesth Advance Directives Directive Yes / No Effective Date File Name No Information Encounters Encounter Description Practice Location Reason(s) For Visit Diagnoses Date Provider Providers Copied on Encounter [facility], [address] [place] [address], [id number], tel:[phone] [place] [address] No Information 5 [facility]. [address] [place] [address], [id number], [place]. tel:[phone] Referring Provider: Arvind Garcia, [facility] [address], [place], [address] . tel:[phone] [facility], [address] [place] [address], [id number], tel:[phone] [place] [address] No Information 4 [facility]. [address] [place] [address] [address], [place], [place], [id number], [place]. tel:[phone] Referring Provider: Michele Lees, [address] [facility] [place], [place], [address] . tel:[phone] [facility], [address] [facility] [address], [place], [id number], [place] tel:[phone] [facility] No Information [facility]. [address] [place] [address] 11 [facility] [address], [place], [id number], [place]. tel:[phone] Referring Provider: Magno Maria [address], [place], [address]. tel:[phone] Family History Family Member Type Diagnosis Age At Onset No Information Payers Payer name Insurance type Covered republican ID Saloni patricio(s) Medicare MB [id number] [facility] [id number] Social History Type Description Quantity Date Captured [...]
--- OUTSIDE RECORDS SUMMARY | 2025-05-16 04:45 | XMS_ITS | Continuity of Care Document ---
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 [address] [place] [address], [id number], [place]. tel:[phone] Referring Provider: Arvind Garcia, [facility] [address], [place], [address] . tel:[phone] [facility], [address] [place] [address], [id number], tel:[phone] [place] [address] No Information 4 [facility]. [address] [place] [address] [address], [place], [place], [id number], [place]. tel:[phone] Referring Provider: Michele Lees, [address] [facility] [place], [place], [address] . tel:[phone] [facility], [address] [facility] [address], [place], [id number], [place] tel:[phone] [facility] No Information [facility]. [address] [place] [address] 11 [facility] [address], [place], [id number], [place]. tel:[phone] Referring Provider: Magno Maria [address], [place], [address]. tel:[phone] Family History Family Member Type Diagnosis Age At Onset No Information Payers Payer name Insurance type Covered constitution party ID Saloni patricio(s) Medicare MB [id number] [facility] [id number] Social History Type Description Quantity Date Captured [...]
--- OUTSIDE RECORDS SUMMARY | 2025-05-16 09:00 | XMS_ITS | Continuity of Care Document ---
Author Organization [facility] magdalena Address [address] [facility] [place] [address] Phone Care Team Providers Care Hand Edger Name Role Phone Lisandro YUE [place] Unavailable Unavailable Allergies, Adverse Reactions, Alerts Substance Reaction Status Criticality PENICILLIN Hives/Skin Rash Active No Informati on Medications Medication Instructions Dosage Effective Dates (start - stop) Status Comments Butrans 5 mcg/hour transdermal patch apply 1 patch by transdermal route every 7 days 5 MCG/H - Active lamotrigine 150 mg tablet take 1 tablet by oral route 2 times every day 150 MG - Active Xanax 0.5 mg tablet take 1 tablet by ora l route 3 times every day 0.5 MG - Active Adderall 5 mg tablet take 1 tablet by or al route 2 times every day before breakfast and at noon 5 MG - Active trazodone 50 mg tablet take 1 - 2 tablet by ORAL route every bedtime after meals 50 MG - Active Proair Digihaler 90 mcg/actuation aerosol powder breath act, sensor inhale 2 puff by inhalation route every 4 - 6 hours as needed - Active medical cannabis ORAL - Active Procedures Procedure Date Facet Inj Lumbar Facet Inj Lumbar 2nd Lvl No Charge For Visit Per Prov OFFICE/OUTPATIENT VISIT, EST Facet Jt In Or MBB j Lumbar BILATERAL Ju Facet Inj Or MBB Lumbar 2nd Level [...] Trial Satellite IMPLANT NEUROELECTRODES ASC IMPLANT NEUROELECTRODES [facility] Implt neurostim elctr each FLUOROGUIDE [...] Toxology With Chromatography Alcohol/drug screening OFFICE/OUTPATIENT VISIT, [facility] Drug test def 22+ classes Advance Directives Directive Yes / No Effective Date File Name No Information Encounters Encounter Description Practice Location Reason(s) For Visit Diagnoses Date Provider Providers Copied on Encounter [facility], [address] [place] [address], [id number] , [place] [phone] [facility] Other spondylosis, lumbar region 5 Nyongesa [place]. [address], [place], [id number], [place]. tel:[phone] [facility], [address] [place] [address], [id number] , [place] tel:[phone] [facility] Other spondylosis, lumbar region 5 Radha Samuels. [address], [place], [place], [id number], [place]. tel:[phone] Referring Provider: Lucas Buitrago, [address] [place] [address], [address]. tel:[phone] [facility], [address] [place] [address], [id number] , [place] tel: [phone] [facility] Other spondylosis, lumbar region 5 Nyallegrasa [place]. [address] [facility] [address], [place], [id number], [place]. tel:[phone] Referring Provider: Lucas Buitrago, [address] [place] [address], [address]. tel:[phone] OFFICE/OUTPAT IENT VISIT, EST [facility], [address] [place] [address], [id number] , [place] [phone] [facility] Widespread pain (chief complaint) Other spondylosis, lumbar regionRadiculo emerald, cervical regionDepressi onChronic pain syndromeLong term (current) use of opiate analgesic 5 Nyongesa [place]. [address], [place], [id number], [place]. tel:[phone] Referring Provider: Lucas Buitrago, [address] [place] [address], [address]. tel:[phone] [facility], [address] [place] [address], [id number] , [place] [phone] [facility] Other spondylosis, lumbar region 4 Sid [place]. [id number] [place] [address] [address], [place], [id number], [place]. tel:[phone] [facility], [address] [place] [address], [id number] , [place] [phone] [facility] Other spondylosis, lumbar region 4 Yoana Bautista. [address] [place] [address] [facility], [place], [place], [id number], [place]. tel:[phone] Referring Provider: Lucas Buitrago, [address] [place] [address], [address]. tel:[phone] OFFICE/OUTPAT IENT VISIT, [facility], [address] [place] [address], [id number] , [place] tel:[phone] [facility] Back Pain (chief complaint) Chronic pain syndromeLong term (current) use of opiate analgesicDepre ssionOther spondylosis, lumbar regionRadiculo emerald, cervical regionEncounte r for therapeutic drug level monitoring 4 [facility] [place]. [id number] [place] [address] [address], [place], [id number], [place]. tel:[phone] Referring Provider: Lucas Buitrago, [address] [place] [address], [address]. tel:[phone] OFFICE/OUTPAT IENT VISIT, [facility], [address] [place] [address], [id number] , [place] tel:[phone] [facility] low back pain (chief complaint) Nicotine dependenceDepr essionChronic pain syndromePain in right hipPain in left hipSacroiliiti s, not elsewhere classifiedSpon dylosis w/o myelopathy or radiculopathy, cervical regionRadiculo emerald, lumbar regionLong term (current) use of opiate analgesic 2 Amandaongesa [place]. [address], [place], [place], [id number], [place]. tel:[phone] Referring Provider: Lucas Buitrago, [address] [place] [address], [address]. tel:[phone] OFFICE VISIT, EST TELEMEDICINE [facility], [address] [place] [address], [id number] , [place] [phone] [facility] low back pain (chief complaint) Nicotine dependenceDepr essionChronic pain syndromePain in right hipPain in left hipSacroiliiti s, not elsewhere classifiedSpon dylosis w/o myelopathy or radiculopathy, cervical regionRadiculo emerald, lumbar regionLong term (current) use of opiate analgesic Oct-3 2 Lisandro Osborne. [address], [place], [place], [id number], [place]. tel:[phone] Referring Provider: Lucas Buitrago, [address] [place] [address], [address]. tel:[phone] [facility], [address] [place] [address], [id number] , [place] tel:[phone] [facility] No Information Oct-0 2 Marilyn Parker. [address] [place] [address], [id number], [place]. tel:[phone] OFFICE/OUTPAT IENT VISIT, EST [facility], [address] [place] [address], [id number] , [place] tel:[phone] [facility] Back Pain (chief complaint) Ankylosing spondylitis in spineChronic pain syndromePain in left hipLong term (current) use of opiate analgesicSpond ylosis w/o myelopathy or radiculopathy, cervical regionDepressi onRadiculopath y, lumbar regionNicotine dependenceSacr oiliitis, not elsewhere classifiedPain in right hipEncounter for therapeutic drug level monitoring 2 Marilyn Parker. [address] [place] [address], [id number], [place]. tel:[phone] Referring Provider: Lucas Buitrago, [address] [place] [address], [address]. tel:[phone] OFFICE VISIT, [facility] TELEMEDICINE [facility], [address] [place] [address], [id number] , [place] [phone] [facility] Back Pain (chief complaint) Sacroiliitis, not elsewhere classifiedPain in right hipChronic pain syndromePain in left hipAnkylosing spondylitis in spineLong term (current) use of opiate analgesicDepre ssionSpondylos is w/o myelopathy or radiculopathy, cervical regionRadiculo emerald, lumbar regionNicotine dependence 2 Lisandro Osborne. [address] [facility] [address] [facility] [address], [place], [id number], [place]. tel:[phone] Referring Provider: Alvaro Clements, [address], [address]. tel:[phone] OFFICE/OUTPAT IENT VISIT, [facility], [address] [place] [address], [id number] , [place] tel:[phone] [facility] Back Pain (chief complaint) Sacroiliitis, not elsewhere classifiedPain in right hipChronic pain syndromePain in left hipAnkylosing spondylitis in spineLong term (current) use of opiate analgesicDepre ssionSpondylos is w/o myelopathy or radiculopathy, cervical regionRadiculo emerald, lumbar regionNicotine dependence 1 Nyongesa [place]. [address] [facility] [address], [place], [id number], [place]. tel:[phone] Referring Provider: Lucas Buitrago, [address] [place] [address], [address]. tel:[phone] [facility], [address] [place] [address], [id number] , [place] tel: [phone] [facility] Sacroiliitis, not elsewhere classified 1 Crow Kiran. [facility], [address], [place], [address], [place]. tel:[phone] Referring Provider: Lucas Buitrago, [address] [place] [address], [address]. tel:[phone] OFFICE/OUTPAT IENT VISIT, EST [facility], [address] [place] [address], [id number] , [place] tel: [phone] [facility] Back Pain (chief complaint) Pain in right hipChronic pain syndromePain in left hipAnkylosing spondylitis in spineLong term (current) use of opiate analgesicDepre ssionNicotine dependenceSpon dylosis w/o myelopathy or radiculopathy, cervical regionSacroili itis, not elsewhere classified 1 Nyongesa [place]. [address], [place], [id number], [place]. tel:[phone] Referring Provider: Lucas Buitrago, [address] [place] [address], [address]. tel:[phone] [facility], [address] [place] [address], [id number] , [place] tel: [phone] [facility] Back Pain (chief complaint) Pain in right hipChronic pain syndromePain in left hipAnkylosing spondylitis in spineLong term (current) use of opiate analgesicDepre ssionNicotine dependenceSpon dylosis w/o myelopathy or radiculopathy, cervical region Nov-3 0- 1 Nyongesa [place]. [address], [place], [place], [id number], [place]. tel:[phone] Referring Provider: Lucas Buitrago, [address] [place] [address], [address]. tel:[phone] [facility], [address] [place] [address], [id number] , [place] tel:[phone] [facility] No Information 1 Nyongesa [place]. [address], [place], [id number], [place]. tel:[phone] OFFICE/OUTPAT IENT VISIT, [facility], [address] [place] [address], [id number] , [place] tel:[phone] [facility] Back Pain (chief complaint) Ankylosing spondylitis in spineLong term (current) use of opiate analgesicDepre ssionNicotine dependenceSpon dylosis w/o myelopathy or radiculopathy, cervical regionEncounte r for therapeutic drug level monitoringPain in right hipChronic pain syndromePain in left hip 1 Nyongesa [place]. [address] [facility] [address], [place], [id number], [place]. tel:[phone] Referring Provider: Lucas Buitrago, [address] [place] [address], [address]. tel:[phone] OFFICE VISIT, [facility], [address] [place] [address], [id number] , [place] [phone] [facility] Back Pain (chief complaint) Ankylosing spondylitis in spineLong term (current) use of opiate analgesicDepre ssionNicotine dependencePain in right hipSpondylosis w/o myelopathy or radiculopathy, cervical regionChronic pain syndromePain in left hip Sep-3 0- 1 Nyongesa [place]. [address] [facility] [address], [place], [id number], [place]. tel:[phone] Referring Provider: Lucas Buitrago, [address] [place] [address], [address]. tel:[phone] OFFICE VISIT, [facility] TELEMEDICINE [facility], [address] [place] [address], [id number] , [place] tel:[phone] [facility] Back Pain (chief complaint) Ankylosing spondylitis in spineLong term (current) use of opiate analgesicDepre ssionNicotine dependencePain in right hipSpondylosis w/o myelopathy or radiculopathy, cervical regionChronic pain syndrome Sep-0 1 Lisandro Osborne. [address] [facility] [address], [place], [id number], [place]. tel:[phone] Referring Provider: Lucas Buitrago, [address] [place] [address], [address]. [phone] OFFICE VISIT, [facility] TELEMEDICINE [facility], [address] [place] [address], [id number] , [place] tel:[phone] [facility] Back Pain (chief complaint) Ankylosing spondylitis in spineLong term (current) use of opiate analgesicDepre ssionNicotine dependencePain in right hipSpondylosis w/o myelopathy or radiculopathy, cervical regionChronic pain syndrome Feb- 1 Lisandro Osborne. [address] [facility] [address], [place], [id number], [place]. tel:[phone] Referring Provider: Lucas Buitrago, [address] [place] [address], [address]. [phone] OFFICE/OUTPAT IENT VISIT, [facility], [address] [place] [address], [id number] , [place] tel:[phone] [facility] Back Pain (chief complaint) Ankylosing spondylitis in spineLong term (current) use of opiate analgesicDepre ssionNicotine dependencePain in right hipSpondylosis w/o myelopathy or radiculopathy, cervical regionChronic pain syndromeEncoun ter for screening for other disorder Jan- 1 Nyongesa [place]. [address] [facility] [address], [place], [id number], [place]. tel:[phone] Referring Provider: Lucas Buitrago, [place], [address]. tel:[phone] OFFICE/OUTPAT IENT VISIT, [facility], [address] [place] [address], [id number] , [place] tel:[phone] [facility] Back Pain (chief complaint) Ankylosing spondylitis in spineLong term (current) use of opiate analgesicDepre ssionNicotine dependencePain in right hipSpondylosis w/o myelopathy or radiculopathy, cervical regionChronic pain syndrome December- 1 Nyongesa [place]. [address] [facility] [address], [id number], [place]. tel:[phone] Referring Provider: Lucas Buitrago, [address] [place] [address], [address]. tel:[phone] OFFICE/OUTPAT IENT VISIT, [facility], [address] [place] [address], [id number] , [place] tel:[phone] [facility] Back Pain (chief complaint) Ankylosing spondylitis in spineLong term (current) use of opiate analgesicDepre ssionNicotine dependencePain in right hipSpondylosis w/o myelopathy or radiculopathy, cervical regionChronic pain syndrome Nov- 1 Nyongesa [place]. [address], [id number], [place]. tel:[phone] Referring Provider: Lucas Buitrago, [address] [place] [address], [address]. tel:[phone] [facility], [address] [place] [address], [id number] , [place] tel:[phone] [facility] Ankylosing spondylitis in spine Oct- 1 Nyongesa [place]. [address], [id number], [place]. tel:[phone] Referring Provider: Lucas Buitrago, [address] [place] [address], [address]. [phone] [facility], [address] [place] [address], [id number] , [place] tel:[phone] [facility] Encounter for therapeutic drug level monitoringLong term (current) use of opiate analgesic 1 Lisandro Osborne. [address] [facility] [address], [place], [id number], [place]. tel:[phone] OFFICE/OUTPAT IENT VISIT, EST [facility], [address] [place] [address], [id number] , [place] tel:[phone] [facility] Back Pain (chief complaint) superintendent terminal (current) use of opiate analgesicAnkyl osing spondylitis in spineDepressio nNicotine dependencePain in right hipSpondylosis w/o myelopathy or radiculopathy, cervical regionChronic pain syndromeEncoun ter for therapeutic drug level monitoring 1 Lisandro Osborne. [address] [facility] [address], [place], [place], [id number], [place]. tel:[phone] Referring Provider: Lucas Buitrago, [address] [place] [address], [address]. tel:[phone] [facility], [address] [place] [address], [id number] , [place] tel:[phone] [facility] No Information 1 [facility], [address] [facility] [address] [facility] [address], [place], [address], [place]. tel:[phone] Referring Provider: Lucas Buitrago, [address] [place] [address], [address]. tel:[phone] OFFICE VISIT, EST TELEMEDICINE [facility], [address] [place] [address], [id number] , [place] tel:[phone] [facility] Back Pain (chief complaint) Ankylosing spondylitis in spineDepressio nNicotine dependencePain in right hipSpondylosis w/o myelopathy or radiculopathy, cervical regionLong term (current) use of opiate analgesicChron ic pain syndrome 1 Sid [place]. [address], [place], [place], [id number], [place]. tel:[phone] [facility], [address] [place] [address], [id number] , [place] [phone] [facility] Spondylosis w/o myelopathy or radiculopathy, cervical region 1 Amandaallegra [place]. [address] [facility] [address], [place], [id number], [place]. tel:[phone] Referring Provider: Lucas Buitrago, [address] [place] [address], [address]. tel:[phone] [facility], [address] [place] [address], [id number] , [place] [phone] [facility] Spondylosis w/o myelopathy or radiculopathy, cervical region 1 Evan Reynolds. [address] [place] [address], [id number], [place]. tel:[phone] Referring Provider: Lucas Buitrago, [address] [place] [address], [address]. tel:[phone] OFFICE VISIT, EST TELEMEDICINE [facility], [address] [place] [address], [id number] , [place] [phone] [facility] Back Pain (chief complaint) Ankylosing spondylitis in spineDepressio nNicotine dependencePain in right hipSpondylosis w/o myelopathy or radiculopathy, cervical regionLong term (current) use of opiate analgesicChron ic pain syndrome 1 Sid [place]. [address], [place], [id number], [place]. tel:[phone] Referring Provider: Lucas Buitrago, [address] [place] [address], [address]. tel:[phone] OFFICE VISIT, EST TELEMEDICINE [facility], [address] [place] [address], [id number] , [place] [phone] [facility] Back Pain (chief complaint) Ankylosing spondylitis in spineDepressio nNicotine dependencePain in right hipSpondylosis w/o myelopathy or radiculopathy, cervical regionLong term (current) use of opiate analgesicChron ic pain syndrome 0 Nyongesa [place]. [address], [place], [id number], [place]. tel:[phone] Referring Provider: Lucas Buitrago, [address] [place] [address], [address]. [phone] OFFICE VISIT, [facility] TELEMEDICINE [facility], [address] [place] [address], [id number] , [place] [phone] [facility] Back Pain (chief complaint) Ankylosing spondylitis in spineDepressio nNicotine dependencePain in right hipSpondylosis w/o myelopathy or radiculopathy, cervical regionLong term (current) use of opiate analgesicChron ic pain syndrome 0 Nyongesa [place]. [address], [place], [id number], [place]. tel:[phone] Referring Provider: Lucas Buitrago, [address] [place] [address], [address]. tel:[phone] OFFICE/OUTPAT IENT VISIT, [facility], [address] [place] [address], [id number] , [place] tel:[phone] [facility] Back Pain (chief complaint) Ankylosing spondylitis in spineCervicalg iaDepressionNi cotine dependencePain in right hipSpondylosis w/o myelopathy or radiculopathy, cervical regionLong term (current) use of opiate analgesicChron ic pain syndrome 0 Nyongesa [place]. [address] [facility] [address], [place], [id number], [place]. tel:[phone] Referring Provider: Lucas Buitrago, [address] [place] [address], [address]. tel:[phone] [facility], [address] [place] [address], [id number] , [place] tel:[phone] [facility] Spondylosis without myelopathy or radiculopathy, cervical region May- 6-202 0 Nyongesa [place]. [address] [place] [address], [id number], [place]. tel:[phone] Referring Provider: Lucas Buitrago, [address] [place] [address], [address]. tel:[phone] [facility], [address] [place] [address], [id number] , [place] [phone] [facility] Spondylosis without myelopathy or radiculopathy, cervical region May- 2- 0 Nyongesa [place]. [address] [place] [address], [id number], [place]. tel:[phone] Referring Provider: Lucas Buitrago, [address] [place] [address], [address]. tel:[phone] [facility], [address] [place] [address], [id number] , [place] tel:[phone] [facility] Spondylosis without myelopathy or radiculopathy, cervical region May- 0 Evan Reynolds. [address] [place] [address], [id number], [place]. tel:[phone] Referring Provider: Lucas Buitrago, [address] [place] [address], [address]. tel:[phone] OFFICE/OUTPAT IENT VISIT, EST [facility], [address] [place] [address], [id number] , [place] tel:[phone] [facility] Back Pain (chief complaint) Ankylosing spondylitis in spineCervicalg iaDepressionNi cotine dependencePain in right hipSpondylosis w/o myelopathy or radiculopathy, cervical regionLong term (current) use of opiate analgesicChron ic pain syndrome Sep-2 1-202 0 Nyongesa [place]. [address] [facility] [address] [facility] [address], [place], [id number], [place]. tel:[phone] Referring Provider: Lucas Buitrago, [address] [place] [address], [address]. tel:[phone] OFFICE/OUTPAT IENT VISIT, [facility], [address] [place] [address], [id number] , [place] tel:[phone] [facility] Back Pain (chief complaint) Ankylosing spondylitis in spineCervicalg iaDepressionNi cotine dependencePain in right hipSpondylosis w/o myelopathy or radiculopathy, cervical regionLong term (current) use of opiate analgesicChron ic pain syndrome Sep-0 0 [place]. [address] [facility] [address] [facility] [address], [place], [id number], [place]. tel:[phone] Referring Provider: Lucas Buitrago, [address] [place] [address], [id number]. tel:[phone] [facility], [address] [place] [address], [id number] , [place] tel:[phone] [facility] cervicalgia (chief complaint) Ankylosing spondylitis in spineCervicalg ia Mar- 0 Cadence Pat. [address] [place] [address], [id number], [place]. tel:[phone] Referring Provider: Lucas Buitrago, [address] [place] [address], [id number]. tel:[phone] OFFICE/OUTPAT IENT VISIT, EST [facility], [address] [place] [address], [id number] , [place] tel:[phone] [facility] Back Pain (chief complaint) DepressionNico glenda dependencePain in right hipSpondylosis w/o myelopathy or radiculopathy, cervical regionLong term (current) use of opiate analgesicChron ic pain syndromeAnkylo sing spondylitis in spine Aug- 0 [place]. [address] [facility] [address], [place], [id number], [place]. tel:[phone] Referring Provider: Lucas Buitrago, [address] [place] [address], [address]. tel:[phone] Psych Dx Eval [facility], [address] [place] [address], [id number] , [place] tel:[phone] Telehealth Pain disorder with related psychological factorsMajor depressive disorder, recurrent, in partial remission 0 Fiorella Dilan Peg. [address] [place] [address], [id number], [place]. tel:[phone] Referring Provider: Lucas Buitrago, [address] [place] [address], [address]. tel:[phone] OFFICE/OUTPAT IENT VISIT, [facility], [address] [place] [address], [id number] , [place] tel:[phone] [facility] Back Pain (chief complaint) Chronic pain syndromeAnkylo sing spondylitis in spineDepressio nNicotine dependencePain in right hipSpondylosis w/o myelopathy or radiculopathy, cervical regionLong term (current) use of opiate analgesic 0 [place]. [address] [facility] [address], [place], [id number], [place]. tel:[phone] Referring Provider: Lucas Buitrago, [address] [place] [address], [address]. tel:[phone] [facility], [address] [place] [address], [id number] , [place] tel:[phone] [facility] Spondylosis w/o myelopathy or radiculopathy, cervical region 0 [place]. [address] [facility] [address], [place], [id number], [place]. tel:[phone] OFFICE/OUTPAT IENT VISIT, [facility], [address] [place] [address], [id number] , [place] tel:[phone] [facility] Back Pain (chief complaint) Chronic pain syndromeAnkylo sing spondylitis in spineDepressio nNicotine dependencePain in right hipLong term (current) use of opiate analgesicSpond ylosis w/o myelopathy or radiculopathy, cervical region 0 Lisandro Osborne. [address] [facility] [address], [place], [id number], [place]. tel:[phone] Referring Provider: Lucas Buitrago, [address] [place] [address], [id number]. tel:[phone] OFFICE/OUTPAT IENT VISIT, [facility], [address] [place] [address], [id number] , [place] tel:[phone] [facility] Back Pain (chief complaint) Chronic pain syndromeAnkylo sing spondylitis in spineDepressio nNicotine dependencePain in right hipEncounter for therapeutic drug level monitoringCerv icalgia 0 Lisandro Osborne. [address] [facility] [address], [place], [id number], [place]. tel:[phone] Referring Provider: Alvaro Clements, [address], [address]. tel:[phone] Family History Family Member Type Diagnosis Age At Onset Mother Problem ankylosing spondylitis Payers Payer name Insurance type Covered constitution party ID Saloni patricio(s) Medicare MB [id number] [facility] [id number] Social History Type Description Quantity Date Captured Comments Alcohol Use Details Unknown Caffeine Use Details Unknown Tobacco Use Status Smoking Status No Information Sex Female Chief Complaint And Reason For Visit No Information Reason For Referral Reason For Referral No Information Plan Of Treatment Date Type Action Status Goal UPPER CUTTER OUT Scanned. Due on 025 due Goal Order Annual PT. Due on due Goal [facility] Paperwork. Due on due Goal Creatinine. Due on due Goal AST (SGOT). Due on due Goal UDT. Due on due Goal OARS. Due on due Goal ALT (SGPT). Due on due Goal Hepatitis C scre ening. Due on due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
--- OUTSIDE RECORDS SUMMARY | 2025-05-16 09:00 | XMS_ITS | Continuity of Care Document ---
Author Organization [facility] magdalena Address [address] [facility] JORGE Tsai [address] Phone Care Team Providers Care Quality Measurement Specialist Name Role Phone Lisandro YUE [place] Unavailable [...] Trial Satellite IMPLANT NEUROELECTRODES ASC IMPLANT NEUROELECTRODES [facility] Implt neurostim elctr each FLUOROGUIDE [...] Toxology With Chromatography Alcohol/drug screening OFFICE/OUTPATIENT VISIT, [facility] Drug test def 22+ classes Advance Directives Directive Yes / No Effective Date File Name No Information Encounters Encounter Description Practice Location Reason(s) For Visit Diagnoses Date Provider Providers Copied on Encounter [facility], [address] [place] [address], [id number] , [place] [phone] [facility] Other spondylosis, lumbar region 5 Nyongesa [place]. [address], [place], [id number], [place]. tel:[phone] [facility], [address] [place] [address], [id number] , [place] tel:[phone] [facility] Other spondylosis, lumbar region 5 Radha Samuels. [address], [place], [place], [id number], [place]. tel:[phone] Referring Provider: Lucas Buitrago, [address] [place] [address], [address]. tel:[phone] [facility], [address] [place] [address], [id number] , [place] [phone] [facility] Other spondylosis, lumbar region 5 Nyallegrasa [place]. [address] [facility] [address], [place], [id number], [place]. tel:[phone] Referring Provider: Lucas Buitrago, [address] [place] [address], [address]. tel:[phone] OFFICE/OUTPAT IENT VISIT, EST [facility], [address] [place] [address], [id number] , [place] [phone] [facility] Widespread pain (chief complaint) Other spondylosis, lumbar regionRadiculo emerald, cervical regionDepressi onChronic pain syndromeLong term (current) use of opiate analgesic 5 Nyongesa [place]. [address], [place], [id number], [place]. tel:[phone] Referring Provider: Lucas Buitrago, [address] [place] [address], [address]. tel:[phone] [facility], [address] [place] [address], [id number] , [place] [phone] [facility] Other spondylosis, lumbar region 4 Sid [place]. [address] [place] [address] [address], [place], [id number], [place]. tel:[phone] [facility], [address] [place] [address], [id number] , [place] [phone] [facility] Other spondylosis, lumbar region 4 Yoana Bautista. [address] [place] [address] [facility], [place], [place], [id number], [place]. tel:[phone] Referring Provider: Lucas Buitrago, [address] [place] [address], [address]. tel:[phone] OFFICE/OUTPAT IENT VISIT, [facility], [address] [place] [address], [id number] , [place] tel:[phone] [facility] Back Pain (chief complaint) Chronic pain syndromeLong term (current) use of opiate analgesicDepre ssionOther spondylosis, lumbar regionRadiculo emerald, cervical regionEncounte r for therapeutic drug level monitoring 4 [facility] [place]. [id number] [place] [address] [address], [place], [id number], [place]. tel:[phone] Referring Provider: Lucas Buitrago, [address] [place] [address], [address]. tel:[phone] OFFICE/OUTPAT IENT VISIT, [facility], [address] [place] [address], [id number] , [place] tel:[phone] [facility] low back pain (chief complaint) Nicotine dependenceDepr essionChronic pain syndromePain in right hipPain in left hipSacroiliiti s, not elsewhere classifiedSpon dylosis w/o myelopathy or radiculopathy, cervical regionRadiculo emerald, lumbar regionLong term (current) use of opiate analgesic 2 Amandaongesa [place]. [address], [place], [place], [id number], [place]. tel:[phone] Referring Provider: Lucas Buitrago, [address] [place] [address], [address]. tel:[phone] OFFICE VISIT, EST TELEMEDICINE [facility], [address] [place] [address], [id number] , [place] [phone] [facility] low back pain (chief complaint) Nicotine dependenceDepr essionChronic pain syndromePain in right hipPain in left hipSacroiliiti s, not elsewhere classifiedSpon dylosis w/o myelopathy or radiculopathy, cervical regionRadiculo emerald, lumbar regionLong term (current) use of opiate analgesic Oct-3 2 Lisandro Osborne. [address], [place], [place], [id number], [place]. tel:[phone] Referring Provider: Lucas Buitrago, [address] [place] [address], [address]. tel:[phone] [facility], [address] [place] [address], [id number] , [place] tel:[phone] [facility] No Information Oct-0 2 Marilyn Parker. [address] [place] [address], [id number], [place]. tel:[phone] OFFICE/OUTPAT IENT VISIT, EST [facility], [address] [place] [address], [id number] , [place] tel:[phone] [facility] Back Pain (chief complaint) Ankylosing spondylitis in spineChronic pain syndromePain in left hipLong term (current) use of opiate analgesicSpond ylosis w/o myelopathy or radiculopathy, cervical regionDepressi onRadiculopath y, lumbar regionNicotine dependenceSacr oiliitis, not elsewhere classifiedPain in right hipEncounter for therapeutic drug level monitoring 2 Marilyn aPrker. [address] [place] [address], [id number], [place]. tel:[phone] Referring Provider: Lucas Buitrago, [address] [place] [address], [address]. tel:[phone] OFFICE VISIT, [facility] TELEMEDICINE [facility], [address] [place] [address], [id number] , [place] [phone] [facility] Back Pain (chief complaint) Sacroiliitis, not elsewhere classifiedPain in right hipChronic pain syndromePain in left hipAnkylosing spondylitis in spineLong term (current) use of opiate analgesicDepre ssionSpondylos is w/o myelopathy or radiculopathy, cervical regionRadiculo emerald, lumbar regionNicotine dependence 2 Lisandro Osborne. [address] [facility] [address] [facility] [address], [place], [id number], [place]. tel:[phone] Referring Provider: Alvaro Clements, [address], [address]. tel:[phone] OFFICE/OUTPAT IENT VISIT, [facility], [address] [place] [address], [id number] , [place] tel:[phone] [facility] Back Pain (chief complaint) Sacroiliitis, not elsewhere classifiedPain in right hipChronic pain syndromePain in left hipAnkylosing spondylitis in spineLong term (current) use of opiate analgesicDepre ssionSpondylos is w/o myelopathy or radiculopathy, cervical regionRadiculo emerald, lumbar regionNicotine dependence 1 Nyongesa [place]. [address] [facility] [address], [place], [id number], [place]. tel:[phone] Referring Provider: Lucas Buitrago, [address] [place] [address], [address]. tel:[phone] [facility], [address] [place] [address], [id number] , [place] tel: [phone] [facility] Sacroiliitis, not elsewhere classified 1 Crow Kiran. [facility], [address], [place], [address], [place]. tel:[phone] Referring Provider: Lucas Buitrago, [address] [place] [address], [address]. tel:[phone] OFFICE/OUTPAT IENT VISIT, EST [facility], [address] [place] [id number] , [place] tel: [phone] [facility] Back Pain (chief complaint) Pain in right hipChronic pain syndromePain in left hipAnkylosing spondylitis in spineLong term (current) use of opiate analgesicDepre ssionNicotine dependenceSpon dylosis w/o myelopathy or radiculopathy, cervical regionSacroili itis, not elsewhere classified 1 Nyongesa [place]. [address], [place], [id number], [place]. tel:[phone] Referring Provider: Lucas Buitrago, [address] [place] [address], [address]. tel:[phone] [facility], [address] [place] [address], [id number] , [place] tel: [phone] [facility] Back Pain (chief complaint) Pain in right hipChronic pain syndromePain in left hipAnkylosing spondylitis in spineLong term (current) use of opiate analgesicDepre ssionNicotine dependenceSpon dylosis w/o myelopathy or radiculopathy, cervical region Nov-3 0- 1 Nyongesa [place]. [address], [place], [place], [id number], [place]. tel:[phone] Referring Provider: Lucas Buitrago, [address] [place] [address], [address]. tel:[phone] [facility], [address] [place] [address], [id number] , [place] tel:[phone] [facility] [place] No Information 1 Nyongesa [place]. [address], [place], [id number], [place]. tel:[phone] OFFICE/OUTPAT IENT VISIT, [facility], [address] [place] [address], [id number] , [place] tel:[phone] [facility] Back Pain (chief complaint) Ankylosing spondylitis in spineLong term (current) use of opiate analgesicDepre ssionNicotine dependenceSpon dylosis w/o myelopathy or radiculopathy, cervical regionEncounte r for therapeutic drug level monitoringPain in right hipChronic pain syndromePain in left hip 1 Nyongesa [place]. [address] [facility] [address], [place], [id number], [place]. tel:[phone] Referring Provider: Lucas Buitrago, [address] [place] [address], [address]. tel:[phone] OFFICE VISIT, [facility], [address] [place] [address], [id number] , [place] [phone] [facility] Back Pain (chief complaint) Ankylosing spondylitis in spineLong term (current) use of opiate analgesicDepre ssionNicotine dependencePain in right hipSpondylosis w/o myelopathy or radiculopathy, cervical regionChronic pain syndromePain in left hip Sep-3 0- 1 Nyongesa [place]. [address] [facility] [address], [place], [id number], [place]. tel:[phone] Referring Provider: Lucas Buitrago, [address] [place] [address], [address]. tel:[phone] OFFICE VISIT, [facility] TELEMEDICINE [facility], [address] [place] [address], [id number] , [place] tel:[phone] [facility] Back Pain (chief complaint) Ankylosing spondylitis in spineLong term (current) use of opiate analgesicDepre ssionNicotine dependencePain in right hipSpondylosis w/o myelopathy or radiculopathy, cervical regionChronic pain syndrome Sep-0 1 Lisandro Osborne. [address] [facility] [address], [place], [id number], [place]. tel:[phone] Referring Provider: Lucas Buitrago, [address] [place] [address], [address]. [phone] OFFICE VISIT, [facility] TELEMEDICINE [facility], [address] [place] [address], [id number] , [place] tel:[phone] [facility] Back Pain (chief complaint) Ankylosing spondylitis in spineLong term (current) use of opiate analgesicDepre ssionNicotine dependencePain in right hipSpondylosis w/o myelopathy or radiculopathy, cervical regionChronic pain syndrome Feb- 1 Lisandro Osborne. [address] [facility] [address], [place], [id number], [place]. tel:[phone] Referring Provider: Lucas Buitrago, [address] [place] [address], [address]. [phone] OFFICE/OUTPAT IENT VISIT, [facility], [address] [place] [address], [id number] , [place] tel:[phone] [facility] Back Pain (chief complaint) Ankylosing spondylitis in spineLong term (current) use of opiate analgesicDepre ssionNicotine dependencePain in right hipSpondylosis w/o myelopathy or radiculopathy, cervical regionChronic pain syndromeEncoun ter for screening for other disorder Jan- 1 Nyongesa [place]. [address] [facility] [address], [place], [id number], [place]. tel:[phone] Referring Provider: Lucas Buitrago, [place], [address]. tel:[phone] OFFICE/OUTPAT IENT VISIT, [facility], [address] [place] [address], [id number] , [place] tel:[phone] [facility] Back Pain (chief complaint) Ankylosing spondylitis in spineLong term (current) use of opiate analgesicDepre ssionNicotine dependencePain in right hipSpondylosis w/o myelopathy or radiculopathy, cervical regionChronic pain syndrome December- 1 Nyongesa [place]. [address] [facility] [address], [id number], [place]. tel:[phone] Referring Provider: Lucas Buitrago, [address] [place] [address], [address]. tel:[phone] OFFICE/OUTPAT IENT VISIT, [facility], [address] [place] [address], [id number] , [place] tel:[phone] [facility] Back Pain (chief complaint) Ankylosing spondylitis in spineLong term (current) use of opiate analgesicDepre ssionNicotine dependencePain in right hipSpondylosis w/o myelopathy or radiculopathy, cervical regionChronic pain syndrome Nov- 1 Nyongesa [place]. [address], [id number], [place]. tel:[phone] Referring Provider: Lucas Buitrago, [address] [place] [address], [address]. tel:[phone] [facility], [address] [place] [address], [id number] , [place] tel:[phone] [facility] Ankylosing spondylitis in spine Oct- 1 Nyongesa [place]. [address], [id number], [place]. tel:[phone] Referring Provider: Lucas Buitrago, [address] [place] [address], [address]. [phone] [facility], [address] [place] [address], [id number] , [place] tel:[phone] [facility] Encounter for therapeutic drug level monitoringLong term (current) use of opiate analgesic 1 Lisandro Osborne. [address] [facility] [address], [place], [id number], [place]. tel:[phone] OFFICE/OUTPAT IENT VISIT, EST [facility], [address] [place] [address], [id number] , [place] tel:[phone] [facility] Back Pain (chief complaint) ad terminal makeup operator (current) use of opiate analgesicAnkyl osing spondylitis in spineDepressio nNicotine dependencePain in right hipSpondylosis w/o myelopathy or radiculopathy, cervical regionChronic pain syndromeEncoun ter for therapeutic drug level monitoring 1 Lisandro Osborne. [address] [facility] [address], [place], [place], [id number], [place]. tel:[phone] Referring Provider: Lucas Buitrago, [address] [place] [address], [address]. tel:[phone] [facility], [address] [place] [address], [id number] , [place] tel:[phone] [facility] No Information 1 [facility], [address] [facility] [address] [facility] [address], [place], [address], [place]. tel:[phone] Referring Provider: Lucas Buitrago, [address] [place] [address], [address]. tel:[phone] OFFICE VISIT, EST TELEMEDICINE [facility], [address] [place] [address], [id number] , [place] tel:[phone] [facility] Back Pain (chief complaint) Ankylosing spondylitis in spineDepressio nNicotine dependencePain in right hipSpondylosis w/o myelopathy or radiculopathy, cervical regionLong term (current) use of opiate analgesicChron ic pain syndrome 1 Sid [place]. [address], [place], [place], [id number], [place]. tel:[phone] [facility], [address] [place] [address], [id number] , [place] [phone] [facility] [place] Spondylosis w/o myelopathy or radiculopathy, cervical region 1 Amandaallegra [place]. [address] [facility] [address], [place], [id number], [place]. tel:[phone] Referring Provider: Lucas Buitrago, [address] [place] [address], [address]. tel:[phone] [facility], [address] [place] [address], [id number] , [place] [phone] [facility] Spondylosis w/o myelopathy or radiculopathy, cervical region 1 Evan Reynolds. [address] [place] [address], [id number], [place]. tel:[phone] Referring Provider: Lucas Buitrago, [address] [place] [address], [address]. tel:[phone] OFFICE VISIT, EST TELEMEDICINE [facility], [address] [place] [address], [id number] , [place] [phone] [facility] [place] Back Pain (chief complaint) Ankylosing spondylitis in spineDepressio nNicotine dependencePain in right hipSpondylosis w/o myelopathy or radiculopathy, cervical regionLong term (current) use of opiate analgesicChron ic pain syndrome 1 Sid [place]. [address], [place], [id number], [place]. tel:[phone] Referring Provider: Lucas Buitrago, [address] [place] [address], [address]. tel:[phone] OFFICE VISIT, EST TELEMEDICINE [facility], [address] [place] [address], [id number] , [place] [phone] [facility] Back Pain (chief complaint) Ankylosing spondylitis in spineDepressio nNicotine dependencePain in right hipSpondylosis w/o myelopathy or radiculopathy, cervical regionLong term (current) use of opiate analgesicChron ic pain syndrome 0 Nyongesa [place]. [address], [place], [id number], [place]. tel:[phone] Referring Provider: Lucas Buitrago, [address] [place] [address], [address]. [phone] OFFICE VISIT, [facility] TELEMEDICINE [facility], [address] [place] [address], [id number] , [place] [phone] [facility] Back Pain (chief complaint) Ankylosing spondylitis in spineDepressio nNicotine dependencePain in right hipSpondylosis w/o myelopathy or radiculopathy, cervical regionLong term (current) use of opiate analgesicChron ic pain syndrome 0 Nyongesa [place]. [address], [place], [id number], [place]. tel:[phone] Referring Provider: Lucas Buitrago, [address] [place] [address], [address]. tel:[phone] OFFICE/OUTPAT IENT VISIT, [facility], [address] [place] [address], [id number] , [place] tel:[phone] [facility] Back Pain (chief complaint) Ankylosing spondylitis in spineCervicalg iaDepressionNi cotine dependencePain in right hipSpondylosis w/o myelopathy or radiculopathy, cervical regionLong term (current) use of opiate analgesicChron ic pain syndrome 0 Nyongesa [place]. [address] [facility] [address], [place], [id number], [place]. tel:[phone] Referring Provider: Lucas Buitrago, [address] [place] [address], [address]. tel:[phone] [facility], [address] [place] [address], [id number] , [place] tel:[phone] [facility] [place] Spondylosis without myelopathy or radiculopathy, cervical region May- 6-202 0 Nyongesa [place]. [address] [place] [address], [id number], [place]. tel:[phone] Referring Provider: Lucas Buitrago, [address] [place] [address], [address]. tel:[phone] [facility], [address] [place] [address], [id number] , [place] [phone] [facility] [place] Spondylosis without myelopathy or radiculopathy, cervical region May- 2- 0 Nyongesa [place]. [address] [place] [address], [id number], [place]. tel:[phone] Referring Provider: Lucas Buitrago, [address] [place] [address], [address]. tel:[phone] [facility], [address] [place] [address], [id number] , [place] tel:[phone] [facility] Spondylosis without myelopathy or radiculopathy, cervical region May- 0 Evan Reynolds. [address] [place] [address], [id number], [place]. tel:[phone] Referring Provider: Lucas Buitrago, [address] [place] [address], [address]. tel:[phone] OFFICE/OUTPAT IENT VISIT, EST [facility], [address] [place] [address], [id number] , [place] tel:[phone] [facility] [place] Back Pain (chief complaint) Ankylosing spondylitis in spineCervicalg iaDepressionNi cotine dependencePain in right hipSpondylosis w/o myelopathy or radiculopathy, cervical regionLong term (current) use of opiate analgesicChron ic pain syndrome Sep-2 1-202 0 Nyongesa [place]. [address] [facility] [address] [facility] [address], [place], [id number], [place]. tel:[phone] Referring Provider: Lucas Buitrago, [address] [place] [address], [address]. tel:[phone] OFFICE/OUTPAT IENT VISIT, [facility], [address] [place] [address], [id number] , [place] tel:[phone] [facility] Back Pain (chief complaint) Ankylosing spondylitis in spineCervicalg iaDepressionNi cotine dependencePain in right hipSpondylosis w/o myelopathy or radiculopathy, cervical regionLong term (current) use of opiate analgesicChron ic pain syndrome Sep-0 0 Nyongesa [place]. [address] [facility] [address] [facility] [address], [place], [id number], [place]. tel:[phone] Referring Provider: Lucas Buitrago, [address] [place] [address], [address]. tel:[phone] [facility], [address] [place] [address], [id number] , [place] tel:[phone] [facility] [facility]) Ankylosing spondylitis in spineCervicalg ia Mar- 0 Cadence Pat. [address] [place] [address], [id number], [place]. tel:[phone] Referring Provider: Lucas Buitrago, [address] [place] [address], [id number]. tel:[phone] OFFICE/OUTPAT IENT VISIT, EST [facility], [address] [place] [address], [id number] , [place] tel:[phone] [facility] Back Pain (chief complaint) DepressionNico glenda dependencePain in right hipSpondylosis w/o myelopathy or radiculopathy, cervical regionLong term (current) use of opiate analgesicChron ic pain syndromeAnkylo sing spondylitis in spine Aug- 0 Nyongesa [place]. [address], [place], [id number], [place]. tel:[phone] Referring Provider: Lucas Buitrago, [address] [place] [address], [id number]. tel:[phone] Psych Dx Eval [facility], [address] [place] [address], [id number] , [place] tel:[phone] Telehealth Pain disorder with related psychological factorsMajor depressive disorder, recurrent, in partial remission 0 Fiorella Dilan Peg. [address] [place] [address], [id number], [place]. tel:[phone] Referring Provider: Lucas Buitrago, [address] [place] [address], [id number]. tel:[phone] OFFICE/OUTPAT IENT VISIT, [facility], [address] [place] [address], [id number] , [place] tel:[phone] [facility] Back Pain (chief complaint) Chronic pain syndromeAnkylo sing spondylitis in spineDepressio nNicotine dependencePain in right hipSpondylosis w/o myelopathy or radiculopathy, cervical regionLong term (current) use of opiate analgesic 0 Nyong[place]. [address] [facility] [address], [place], [id number], [place]. tel:[phone] Referring Provider: Lucas Buitrago, [address] [place] [address], [id number]. tel:[phone] [facility], [address] [place] [address], [id number] , [place] tel:[phone] [facility] Spondylosis w/o myelopathy or radiculopathy, cervical region 0 Nyongesa [place]. [address] [facility] [address], [place], [id number], [place]. tel:[phone] OFFICE/OUTPAT IENT VISIT, [facility], [address] [place] [address], [id number] , [place] tel:[phone] [facility] Back Pain (chief complaint) Chronic pain syndromeAnkylo sing spondylitis in spineDepressio nNicotine dependencePain in right hipLong term (current) use of opiate analgesicSpond ylosis w/o myelopathy or radiculopathy, cervical region 0 Lisandro Osborne. [address], [place], [id number], [place]. tel:[phone] Referring Provider: Lucas Buitrago, [address] [place] [address], [address]. tel:[phone] OFFICE/OUTPAT IENT VISIT, [facility], [address] [place] [address], [id number] , [place] tel:[phone] [facility] Back Pain (chief complaint) Chronic pain syndromeAnkylo sing spondylitis in spineDepressio nNicotine dependencePain in right hipEncounter for therapeutic drug level monitoringCerv icalgia 0 Lisandro Osborne. [address], [place], [id number], [place]. tel:[phone] Referring Provider: Alvaro Clements, [address], [address]. tel:[phone] Family History Family Member Type Diagnosis Age At Onset Mother Problem ankylosing spondylitis Payers Payer name Insurance type Covered green party ID Saloni patricio(s) Medicare MB [id number] [facility] [id number] Social History Type Description Quantity Date Captured Comments Alcohol Use Details Unknown Caffeine Use Details Unknown Tobacco Use Status Smoking Status No Information Sex Female Chief Complaint And Reason For Visit No Information Reason For Referral Reason For Referral No Information Plan Of Treatment Date Type Action Status Goal PHARMACEUTICAL SALES Scanned. Due on 025 due Goal Order Annual PT. Due on due Goal [facility] Paperwork. Due on due Goal Creatinine. Due [...] on due Goal [facility] Paperwork. Due on due Goal PHARMACEUTICAL SALES Scanned. Due on due Goal OARS. Due [...] Weight. Due on d ue Goal Tobacco screenin g. Due on due Goal Unhealthy drug u se screening. Due on due Goal Medication Recon ciliation. Due on due Goal Review Allergy L ist. Due on due Goal Update Social Hi story. Due on due Goal PHQ-9. Due on du e Goal Tobacco Use. Due on due Goal Height. Due on d ue Goal HPV. Due on due Goal PHARMACEUTICAL SALES Scanned. Due on due Goal ALT (SGPT). Due on due Goal AST (SGOT). Due on due Goal Order Annual PT. Due on due Goal REHAB DIRECTOR OCCUPATIONAL THERAPIST Paperwork. Due on due Goal Creatinine. Due on due Goal UDT. Due on due Goal OARS. Due on due Goal Creatinine. Due on due Goal ALT (SGPT). Due on due Goal PHARMACEUTICAL SALES Scanned. Due on due Goal AST (SGOT). Due on due Goal OARS. Due on due Goal Order Annual PT. Due on due Goal UDT. Due on due Goal REHAB DIRECTOR OCCUPATIONAL THERAPIST Paperwork. Due on due Goal Tobacco screenin [...] Goal Height. Due on d ue Goal PHARMACEUTICAL SALES Scanned. Due on due Goal ALT (SGPT). Due on due Goal AST (SGOT). Due on due Goal UDT. Due on due Goal Order Annual PT. Due on due Goal REHAB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
--- OUTSIDE RECORDS SUMMARY | 2025-05-19 01:56 | XMS_ITS | Continuity of Care Document ---
Author Organization [facility] Address [address] [place] [address] Care Team Providers Care Solderer Electronic Name Role Phone Ritchie Pedroza CRNA Unavailable Unavailable Procedures Procedure Date Percutaneous Image guided injection, dra buenrostro, or Percutaneous Image guided injection, dra buenrostro, or ANESTH, HEAD/NECK/PTRUNK ANESTH PERC IMG TX SP PROC Advance Directives Directive Yes / No Effective Date File Name No Information Encounters Encounter Description Practice Location Reason(s) For Visit Diagnoses Date Provider Providers Copied on Encounter [facility], [address] [place] [address], [id number], [facility] No Information 5 Yovany Dugan. [address] [place] [address], [id number], . tel:[phone] Referring Provider: Arvind Garcia, [address], [place], [address] . tel:[phone] [facility], [address] [place] [address], [id number], [facility] No Information 4 Sagar Coelho. [address] [place] [address], [id number], . tel:[phone] Referring Provider: Michele Lees, [address] [place], [address] . tel:[phone] [facility], [address] [place], [id number], [facility] [place] No Information 1 Dior Donohue. [address], [place], [place], [id number], . tel:[phone] Referring Provider: Gail Gordon, [address] [facility] [place], [address] . tel:[phone] [facility], [address] [place], [place], [id number], [facility] [place] No Information 0 Ivis Luis. [address], [place], [place], [id number], . tel:[phone] Referring Provider: Gail Gordon, [address] [facility] [place], [address] . tel:[phone] Family History Family Member Type Diagnosis Age At Onset No Information Payers Payer name Insurance type Covered republican ID Saloni patricio(s) Medicare MB [id number] [facility] [id number] Social History Type Description Quantity Date Captured [...]
--- OUTSIDE RECORDS SUMMARY | 2025-05-19 01:56 | XMS_ITS | Continuity of Care Document ---
Author Organization [facility] Address [address] [place] [address] Care Team Providers Care Ecological Modeler Name Role Phone Ritchie Pedroza CRNA Unavailable Unavailable Procedures Procedure Date Percutaneous Image guided injection, dra buenrostro, or Percutaneous Image guided injection, dra buenrostro, or ANESTH, HEAD/NECK/PTRUNK ANESTH PERC IMG TX SP PROC Advance Directives Directive Yes / No Effective Date File Name No Information Encounters Encounter Description Practice Location Reason(s) For Visit Diagnoses Date Provider Providers Copied on Encounter [facility], [address] [place] [address], [id number], [facility] No Information 5 Yovany Dugan. [address] [place] [address], [id number], . tel:[phone] Referring Provider: Arvind Garcia, [address], [place], [address] . tel:[phone] [facility], [address] [place] [address], [id number], [facility] No Information 4 Sagar Coelho. [address] [place] [address], [id number], . tel:[phone] Referring Provider: Michele Lees, [address] [place], [address] . tel:[phone] [facility], [address] [place], [id number], [facility] [place] No Information 1 Dior Donohue. [address], [place], [place], [id number], . tel:[phone] Referring Provider: Gail Gordon, [address] [facility] [place] [place], [address] . tel:[phone] [facility], [address] [place], [place], [id number], [facility] [place] No Information 0 Ivis Luis. [address], [place], [place], [id number], . tel:[phone] Referring Provider: Gail Gordon, [address] [facility] [place], [address] . tel:[phone] Family History Family Member Type Diagnosis Age At Onset No Information Payers Payer name Insurance type Covered libertarian ID Saloni patricio(s) Medicare MB [id number] [facility] [id number] Social History Type Description Quantity Date Captured [...]
--- OUTSIDE RECORDS SUMMARY | 2025-05-22 08:07 | XMS_ITS | Clinical Summary ---
[facility] Address [address] [place] [address] Care Team Providers Care Lead Shipper Name Role Phone Needs Pcp, Assignment Primary Care Provider [phone] Source Comments You are receiving this document as you are listed as the primary care provider,follow-up provider, or the patient has been referred to you for consultation.This is in compliance with the Medicare and[facility] EHR Incentive Program,which states Providers who transition their patient to another setting of careor provider of care or refers their patient to another provider of care shouldprovide summary care record for each transition of care or referral. US PREVENTIVE MEDICINE Allergies Active Allergy Reactions Criticality Noted Date [...] Vaccine (1 of 2 - PCV) 2005 HPV Vaccine (1 - 3-dose SCDM series) 2013 DTaP/Tdap/Td Vaccine (7 - Tdap) 11/28/2019 11/27/2009, 10/20/1992, 03/15/1988, Additional history exists COVID-19 Vaccine ( - season) 2025 Influenza Vaccine (#1) 2025 05/03/2009, 2002 Zoster/Shingles [...] patient's age to complete this topic Insurance [facility] Care Teams Lead Shipper Relationship Specialty Start Date End Date Needs Pcp, Assignment [place], [place] [id number] PCP - General 09/12/22
[2025-05-22 08:09] VITALS: BP 94/64; PULSE 86; RESP 16; TEMP 36.3; O2SAT 95; BMI 21.6
== END 2025-05-22 12:25 | disposition home or self-care (01) ==
PROVIDERS: Emergency Provider Student in an Organized Health Care Education/Training Program; PCP Internal Medicine
DX: T76.21XA Adult sexual abuse, suspected, initial encounter (principal)

== ENCOUNTER 2025-07-06 15:58 | Outpatient (CLI) | payer MEDICARE, MEDICAID, SELFPAY | END 2025-07-06 15:59 | disposition home or self-care (01) | LOC: NFLDREF 16:01 | PROVIDERS: PCP Internal Medicine; Visit Provider Family Medicine | DX: R11.10 Vomiting, unspecified (principal) | CPT/HCPCS: 80053 ==

== ENCOUNTER 2025-07-12 17:10 | Emergency (ER) | payer MEDICARE, MEDICAID, SELFPAY ==
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
[2025-07-12 17:32] VITALS: BP 107/71; PULSE 79; RESP 18; TEMP 37.8; O2SAT 98
--- NOTE | 2025-07-12 17:54 | ED_ITS ---
HPI - General Adult General Date Seen: 07/12/25 Chief complaint: Nausea/Vomiting Stated complaint: nausea, vomiting Time Seen by Provider: 07/12/25 17:45 History of Present Illness HPI narrative: 39-year-old female who has a history of GERD, endometriosis, asthma, anxiety/depression, ankylosing spondylitis, chronic pain, eating disorder (record dated 11/27/2009) seizures, tobacco use. She presents to the ER today with her son. I evaluated the patient in ER room 3. Of note our interaction was still to because the patient was fairly angry and gruff with me from the moment entered her room. She is feeling nauseous and I think she is angry about having to wait to be seen here in the ER. I apologize for her weight. Her for sentiment to me is that she wants to know why she is sick. She says she has had a cough for a year. She has been nauseous and vomiting ?randomly? for a month and her doctors do not know why she sick. When I discussed with her that this point at the differential is quite broad and that we should take some time to talk through her illness to see we can knee, but the right diagnosis. She is frustrated because the test that her doctor has been running so far have not clearly shown a diagnosis. She does not want to talk about her illness. I am able to get from her that she has had a cough that is largely nonproductive for about a year or so. It turns out she has been on an antibiotic (Azithromycin) prescribed to her by her doctor's office last week. She does not like the cough is getting any better. She is also nauseous. Sounds like she has had 5 or 6 days over the past month where she has had trouble with nausea and vomiting. I am not able to get history from her about which days they were or if there is any pattern. As far as I can gather today she has been dry heaving and not actually vomiting. As far as I know no hematemesis. She denies any diarrhea. She does have chronic low back pain from ankylosing spondylitis. She had a nerve ablation procedure about 3 weeks ago on her low back. Her back hurts as it normally does but is not necessarily worse than normal. As were discussing her symptoms and my recommended treatment with IV fluids, nausea meds, chest x-ray, the patient is angry. She does not want any further testing. She is refusing to help answer any clarifying questions about her HPI to help narrow down the diagnosis. I was able to get the beginning of a physical exam. She stormed out of the ER and refused even to stay for discharge paperwork. I offered her a prescription for Instymeds at least for nausea medicine for Zofran and she refused to stay. Her son, Narayan was present at the bedside during this conversation and apologized for his mother's behavior any accompanying her out. I discussed with her son, Narayan, that she is invited to come back to the ER any time if she changes her mind or if she calms down. Related Data Home Medications ?Medication ?Instructions ?Recorded ?Confirmed lamotrigine 25 mg tablet 125 mg PO QDAY 05/10/2504/28 trazodone 50 mg tablet 200 mg PO .Bedtime 05/10/25 07/12/25 Previous Rx's ?Medication ?Instructions ?Recorded albuterol sulfate 90 mcg/actuation 2 inh inhalation QI D PRN 02/11/24 aerosol inhaler bronchospasm #8.5 grams valacyclovir 500 mg tablet 500 mg PO QDAY 30 days #90 tabs 04/01/25 hydrocodone 5 mg-acetaminophen 325 2 tab PO TID PRN pa in #20 tabs 05/26/25 mg tablet dextroamphetamine-amphetamine 20 20 mg PO BID #60 tabs 06/14/25 mg tablet (Adderall) alprazolam 0.5 mg tablet 0.5 mg PO BID PRN anxiety #3 0 tabs 06/28/25 tramadol 50 mg tablet 50 mg PO TID PRN pain #90 ta bs 06/28/25 azithromycin 250 mg tablet See Rx Instructions PO .COM PLEX #6 07/06/25 (Zithromax Z-Chepe) tabs Allergies Allergy/AdvReac Type Severity Reaction Status Date / Time Penicillins Allergy Mild Hives/rash Verified 07/12/25 17:38 [facility] Medical History (Updated 07/12/25 @ 18:47 by Adam Dodge MD) Injury ?T14.90XA - Injury, unspecified, initial encounter (ICD-10) Vomiting ?R11.10 - Vomiting, unspecified (ICD-10) Weight loss ?R63.4 - Abnormal weight loss (ICD-10) Tobacco use ?Z72.0 - Tobacco use (ICD-10) Suicidal ideation ?R45.851 - Suicidal ideations (ICD-10) History of seizure disorder ?Z86.69 - Personal history of other diseases of the nervous system and sense organs (ICD-10) History of migraine ?Z86.69 - Personal history of other diseases of the nervous system and sense organs (ICD-10) Depression with suicidal ideation ?F32.A - Depression, unspecified (ICD-10) ?R45.851 - Suicidal ideations (ICD-10) Surgical History History of hip surgery (07/2019) ?Z98.890 - Other specified postprocedural states (ICD-10) Status post surgical removal of both fallopian tubes (2014) ?Z90.79 - Acquired absence of other genital organ(s) (ICD-10) Status post laparoscopic hysterectomy (2014) ?Z90.710 - Acquired absence of both cervix and uterus (ICD-10) History of section (03/01/10) ?Z98.891 - History of uterine scar from previous surgery (ICD-10) Family History Other Ankylosing spondylitis Social History Narrative: Nicotine dependence Does not have regular exercise regimen Medical cannabis use Single, unemployed, 1 child Social drinker, 2 drinks/week What is your current living situation?: I presently have a place to live Problems where you live: no known problems In the past 12 months, utilities in danger of being shut off: no In past 12 months, lack of transportation kept you from medical appts, meetings, work, or getting things needed for daily living: no In the past 12 mos, have been you worried that your food would run out before you had money to buy more?: sometimes true In the past 12 mos, the food you bought just didn't last and you didn't have money to buy more?: sometimes true Smoking Status: Current every day smoker What tobacco products do you use: cigarettes Smoking packs per day: 0.75 Smoking cigarettes per day: 15.0 Do you use any of these nicotine containing products: None Second hand tobacco smoke exposure: No How often do you have a drink containing alcohol: monthly or less AUDIT-C Alcohol total score: 1 Non-prescribed substance use: marijuana (any form) How often does anyone, including family, friends and others, physically hurt you : never How often does anyone, including family, friends and others, insult or talk down to you: rarely How often does anyone, including family, friends and others, threaten you with harm: never How often does anyone, including family, friends and others, scream or curse at you: rarely Are you currently sexually active: Yes What kind of protection do you use against STDs: none Are you using contraception or practicing any form of control: No service: No Health Related Social Needs: food insecurity (Z59.41) and Other personal risk factors, not elsewhere classified (Z91.89) Exam Narrative: Exam Narrative: Constitutional: Appears well-developed and well-nourished. Alert. She is speaking full sentences but is angry at me HENT: Head: Atraumatic. Nose: Nose normal. Mouth/Throat: Oral mucosa is clear and moist. Mucous membranes are not desiccated or cracked. no trismus. Pharynx normal. Tonsils symmetric. No tonsillar enlargement, erythema, or exudate. Eyes: Conjunctivae normal. EOM normal. Pupils equal, round, and reactive to light. No scleral icterus. Neck: Normal range of motion. Neck supple. No tracheal deviation present. Cardiovascular: Normal rate, regular rhythm. No gallop. No friction rub. No murmur heard. Symmetric radial artery pulses Pulmonary/Chest: Effort normal. No stridor. No respiratory distress. No wheezes. No rales. No rhonchi . No tenderness. Abdominal: Soft. Bowel sounds normal. No distension. No mass. Right lower quadrant> right upper quadrant tenderness. No definite Madrid sign. No CVA tenderness. No rebound. No guarding. Musculoskeletal: Normal inspection of her low back. No signs of any redness or warmth. No obvious point tenderness. She is diffusely mildly tender. No step-off. RUE: Normal range of motion. No tenderness. No deformity LUE: Normal range of motion. No tenderness. No deformity RLE: Normal range of motion. No edema. No tenderness. No deformity LLE: Normal range of motion. No edema. No tenderness. No deformity Neurological: Alert and oriented to person, place, and time. Normal strength. CN II-VII intact. No sensory deficit. GCS eye subscore is 4. GCS verbal subscore is 5. GCS motor subscore is 6. Normal coordination Skin: Skin is warm and dry. No rash noted. No pallor. Normal capillary refill. Psychiatric: She is angry from the moment I enter the room. Const: Vital Signs, click to edit/add: Vital Signs - 24 hr 07/12/25 17:32 Temperature 100.1 F H Pulse Rate [Right Pulse Oximeter] 79 Respiratory Rate 18 Blood Pressure [Ri ght Upper Arm] 107/71 Pulse Oximetry 98 Oxygen Delivery Me thod Room Air Course Vital Signs Vital signs: Initial Vital Signs Temperature 100.1 F H 07/12/25 17:32 Temperature Source Temporal Artery Scan 07/12/25 17:32 Pulse Rate 79 07/12/25 17:32 Pulse Rhythm Regular 07/12/25 17:32 Pulse Strength 3+ Normal 07/12/25 17:32 Respiratory Rate 18 07/12/25 17:32 Blood Pressure 107/71 07/12/25 17:32 Blood Pressure Mean 83 07/12/25 17:32 Blood Pressure Position Sitting 07/12/25 17:32 Pulse Oximetry 98 07/12/25 17:32 Oxygen Delivery Method Room Air 07/12/25 17:32 Vital Signs Temperature 100.1 F H 07/12/25 17:32 Pulse Rate 79 07/12/25 17:32 Respiratory Rate 18 07/12/25 17:32 Blood Pressure 107/71 07/12/25 17:32 Pulse Oximetry 98 07/12/25 17:32 Oxygen Delivery Method Room Air 07/12/25 17:32 Temperature 100.1 F H 07/12/25 17:32 Pulse Rate 79 07/12/25 17:32 Respiratory Rate 18 07/12/25 17:32 Blood Pressure 107/71 07/12/25 17:32 Pulse Oximetry 98 07/12/25 17:32 Oxygen Delivery Method Room Air 07/12/25 17:32 Medical Decision Making MDM Narrative Medical decision making narrative: 39-year-old female accompanied to the ER today by her young adult son with concern for nausea and dry heaving throughout the day today. Also cough for the past year so. Differential is broad in terms of her symptoms including GI problems such as cholecystitis, choledocholithiasis, pancreatitis, appendicitis, bowel obstruction, cyclic vomiting syndrome, viral GI symptoms, gastritis, peptic ulcer disease, among many other. During my discussion with the patient that I wanted to get more history to help and figure out what diagnoses were most about and make sure we tailor our diagnostic testing appropriately. She was angry and refusing to answer any questions and refused any tests. She has also had a cough for the past year or so, she says. She also developed worsening illness today with a low-grade fever. She did have a COVID/influenza/RSV swab obtained during the triage process and that resulted as negative while I was talking to the patient. It popped on on her smart phone in her ?my chart. ?. I discussed that her lungs sound clear here. There is no wheezing or asthma. She says she has already been on a course of steroids and it did not help. I recommended an x-ray to look for pneumonia. She initially seemed receptive to this but then we discussed that it may take up to an hour to get the results of the x-ray she became angry and stormed out of the ER. Her son apologized for her behavior on his way out. She is invited to return if she changes her mind. She left angrily. She did not stay for discharge paperwork. Obviously, at this point I am not able to do a proper evaluation or rule out life-threatening illnesses. Although patient is angry, she does not appear to be acutely intoxicated with drugs or alcohol or acutely psychotic. I do think she has medical decision-making capacity. I do not have any criteria to keep her on her hold here in the ER for further workup. Lab Data Labs: Lab Results 07/12/25 Range/Units 17:45 SARS-CoV-2 (PCR) Negative SARS-CoV-2 (Negative) Influenza Type A (PCR) Negative PCR FLU A (Negative) Influenza Type B (PCR) Negative PCR FLU B (Negative) RSV (PCR) Negative PCR RSV (Negative) Discharge Plan Discharge Patient Disposition: Elopement Discharge Comment: Left during initial MD exam. Refused suggested IV, antiemetics, chest x-ray, labs, and workup.
[2025-07-12 18:29] LABS: PCR FLU A Negative PCR FLU A (Negative); PCR FLU B Negative PCR FLU B (Negative); PCR RSV Negative PCR RSV (Negative); SARS PCR* Negative SARS-CoV-2 (Negative)
== END 2025-07-12 18:59 | disposition left against medical advice (07) ==
PROVIDERS: Emergency Provider Emergency Medicine; PCP Internal Medicine
DX: R11.2 Nausea with vomiting, unspecified (principal); Z53.21 Procedure and treatment not carried out due to patient leaving prior to being seen by health care provider; Z88.0 Allergy status to penicillin
CPT/HCPCS: 87631; 99283; 99285

== ENCOUNTER 2025-07-14 09:14 | Emergency (ER) | payer MEDICARE, MEDICAID, SELFPAY ==
[2025-07-14 09:40] VITALS: BP 106/67; PULSE 72; RESP 18; TEMP 37.3; O2SAT 98; BMI 27.4
== END 2025-07-14 10:33 | disposition left against medical advice (07) ==
LOC: ED 10:31
PROVIDERS: Emergency Provider Family Medicine; PCP Internal Medicine
DX: Z53.21 Procedure and treatment not carried out due to patient leaving prior to being seen by health care provider (principal)